=== PATIENT | female | born 1995 | race Caucasian/White ===

== ENCOUNTER 2021-06-04 04:24 | Emergency (ER) | payer OTHER, SELFPAY ==
[2021-06-04 04:29] VITALS: BP 134/94; PULSE 72; RESP 16; TEMP 36.6; O2SAT 100
--- NOTE | 2021-06-04 04:40 | ED.DENTAL ---
HPI - Dental/Oral General Chief complaint: Dental/Oral Stated complaint: tooth pain Time Seen by Provider: 06/04/21 04:36 Source: patient History of Present Illness HPI Narrative: Patient presents with left lower dental pain and sore throat. Patient ports symptoms started this morning to get progressively worse so she came to the ER for evaluation. She reports it hurts to open her jaw. Pain is achy, constant, worse with moving her jaw. Reports the pain spreads across her face and jaw. Reports mild pain and swelling denies any nausea vomiting or diarrhea she denies any fever she denies any shortness of breath she denies any trauma to the area Teeth map: 1. pain Related Data Allergies Allergy/AdvReac Type Severity Reaction Status Date / Time ondansetron Allergy Mild Rash Verified 06/04/21 04:32 Review of Systems Review of Systems: CONSTITUTIONAL: Denies fever, chills, or sweats. EYES: Denies visual changes, redness, or discharge. ENT: Denies rhinorrhea, congestion, or otalgia. CARDIOVASCULAR: Denies chest pain, palpitations, or edema. RESPIRATORY: Denies cough or dyspnea. GASTROINTESTINAL: Denies abdominal pain, nausea, vomiting, or diarrhea. GENITOURINARY: Denies dysuria or hematuria. SKIN: Denies rash or itching. MUSCULOSKELETAL: Denies back pain, joint pain, or myalgia. NEUROLOGIC: Denies headache, numbness, dizziness, or weakness. PSYCHIATRIC: Denies anxiety or depression. All systems reviewed & are unremarkable except as noted in HPI and below PMFSH Past Medical History Medical History (Updated 06/04/21 @ 04:45 by Blaise Portillo MD) Patient denies significant medical history Social History Social History (Updated 06/04/21 @ 04:42 by Blaise Portillo MD) Substance use: never Exam Narrative: GENERAL: Well-appearing, well-nourished, and in no acute distress. HEAD: Normocephalic, atraumatic. EYES: PERRLA and EOMI. ENT: Nares clear, no rhinorrhea or epistaxis. Mucous membranes moist. Minimal erythema in the posterior pharynx no uvular deviation fractured tooth 17 with surrounding erythema and edema no submandibular pain NECK: Supple. No masses. No JVD EXTREMITIES: Normal range of motion. No edema. SKIN: Warm, dry, no rash. NEURO: No focal deficits. Alert and oriented x3. PSYCH: Normal mood and affect. Course Vital Signs Vital signs: Vital Signs Temperature 36.6 C 06/04/21 04:29 Pulse Rate 72 06/04/21 04:29 Respiratory Rate 16 06/04/21 04:29 Blood Pressure 134/94 H 06/04/21 04:29 Pulse Oximetry 100 06/04/21 04:29 Temperature 36.6 C 06/04/21 04:29 Pulse Rate 80 06/04/21 05:01 Respiratory Rate 16 06/04/21 05:01 Blood Pressure 130/90 06/04/21 05:01 Pulse Oximetry 98 06/04/21 05:01 MDM - Dental/Oral MDM Narrative Medical decision making narrative: H&P as above, vss, pt looks clinically well, exam dental fracture with surrounding edema and erythema, additional labs/img considered, symptomatic relief available as needed, on reevaluation pt continues to looks clinically well. Suspect dental abscess, dns airway compromise, severe sepsis. plan to tx/monitor as op w/ dental f/u findings/plan discussed with pt, pt agree/comfortable with plan, return precautions given. Education given regarding the importance of dentist for further evaluation Discharge Plan Discharge Clinical Impression: Abscess, dental Patient Disposition: Home, Self-Care Condition: Improved Instructions: Antibiotic Form, Dental Abscess (ED) Additional Instructions: Please return if your symptoms worsen or fail to improve. If you develop a fever, can not eat/drink anything or if you have any other concerns. Please follow-up with a dentist. Prescriptions: New oxycodone-acetaminophen 5-325 mg tablet 1 tablet PO Q4H PRN (Reason: pain) Qty: 10 RF: 0 amoxicillin-pot clavulanate 875-125 mg tablet 1 tablet PO Q12H 7 Days Qty: 14 RF: 0 Follow-up/Referrals: PHYSICIAN NOT ON STAFF,NON
[2021-06-04] MEDS: KETOROLAC 30 MG/ML VIAL (*BKC) IM (04:55)
[2021-06-04 05:01] VITALS: BP 130/90; PULSE 80; RESP 16; O2SAT 98
== END 2021-06-04 05:03 | disposition home or self-care (01) ==
LOC: ANHED 04:55
PROVIDERS: Emergency Provider Emergency Medicine; PCP Internal Medicine Gastroenterology
DX: K04.7 Periapical abscess without sinus (principal)
CPT/HCPCS: 96372; 99283; J1885

== ENCOUNTER 2022-06-24 09:39 | Emergency (ER) | payer SELFPAY ==
--- NOTE | 2022-06-24 09:40 | ECG_ITS ---
Measurements Intervals [place] Rate: 79 P: 59 MA: 131 QRS: 89 QRSD: 80 T: 53 QT: 355 QTc: 408 Interpretive Statements SINUS RHYTHM BASELINE ARTIFACT- I, III, AVR, AVL, AVF NORMAL ECG NO PREVIOUS ECG AVAILABLE FOR COMPARISON Electronically Signed On 06-24-2022 10:17:42 CYTOTECHNOLOGIST SUPERVISOR by Jeremy Gaspar D.O.
--- NOTE | 2022-06-24 10:52 | PC.NURSE ---
left at 1049, did not want to wait. Advised of risks including . Voiced acknowledgement
== END 2022-06-24 10:52 | disposition left against medical advice (07) ==
PROVIDERS: Emergency Provider Emergency Medicine
DX: Z53.21 Procedure and treatment not carried out due to patient leaving prior to being seen by health care provider (principal)
CPT/HCPCS: 93005; 99199

== ENCOUNTER 2022-07-07 08:05 | Emergency (ER) | payer MEDICAID, SELFPAY ==
[2022-07-07 08:09] VITALS: BP 123/74; PULSE 77; RESP 17; TEMP 37.2; O2SAT 100
[2022-07-07 08:15] VITALS: PULSE 77
[2022-07-07 09:11] LABS: Basophils Absolute Auto 0.1 K/mm3 (0.0-0.1); Basophils Percent Auto 0.7 % (0.2-1.2); Eosinophils Absolute Auto 0.1 K/mm3 (0-0.3); Eosinophils Percent Auto 1.6 % (0-4.4); Hematocrit 40.6 % (37.0-47.0); Hemoglobin 13.2 g/dL (12.0-15.0); Immature Granulocyte Absolute 0.02 K/mm3 (0.00-0.031); Immature Granulocyte Percent A 0.3 % (0-0.5); Lymphocytes Absolute Auto 1.92 K/mm3 (0.9-3.2); Lymphocytes Percent Auto 25.7 % (18.3-44.2); Mean Corpuscular HGB Conc 32.5 g/dl (32-36); Mean Corpuscular Hemoglobin 33.8 pg (26-34); Mean Corpuscular Volume 103.8 fl (80-100); Mean Platelet Volume 11.7 fl (7.4-10.4); Monocytes Absolute Auto 0.6 K/mm3 (0.1-0.6); Monocytes Percent Auto 7.6 % (2.6-8.5); Neutrophils Absolute Auto 4.8 K/mm3 (1.3-6.7); Neutrophils Percent Auto 64.1 % (45.5-73.1); Platelet Count Result 312 k/mm3 (150-375); Red Blood Count 3.91 M/mm3 (4.2-5.4); Red Cell Distribution Width 13.2 % (11.5-14.5); White Blood Count 7.5 K/mm3 (4.5-10.0)
--- NOTE | 2022-07-07 09:17 | ED.GENADULT ---
HPI - General Adult General Chief complaint: Unspecified Stated complaint: weak after donating plasma 1 wk ago Time Seen by Provider: 07/07/22 08:45 History of Present Illness HPI narrative: Pt presents with lightheaded feeling since donating plasma last week. Pt says she passed out during the procedure and the machine did not put blood back because it wasn't working. Pt denies CP. Pt feels SOB on exertion sometimes. Related Data Allergies Allergy/AdvReac Type Severity Reaction Status Date / Time ondansetron Allergy Mild Rash Verified 07/07/22 08:15 Review of Systems Review of Systems: All systems reviewed & are unremarkable except as noted in HPI and below PMFSH Past Medical History Medical History (Updated 07/07/22 @ 10:09 by Tayo Mcgregor III, DO) Patient denies significant medical history Social History Social History (Updated 06/04/21 @ 04:42 by Blaise Portillo MD) Substance use: never Exam Const: General: cooperative, healthy appearing and no acute distress Nutritional Appearance: average body habitus Orientation/consciousness: patient oriented x3 Limitations: no limitations HENMT: Head: normal to inspection Mouth: Yes Normal oral and palatal mucosa present Throat: posterior oropharynx normal Chest: Chest palpation & inspection: normal inspection of the chest Resp: Effort & Inspection: normal respiratory effort and able to speak in complete sentences Auscultation: clear to auscultation bilaterally Cardio: Rate: regular rate Rhythm: regular rhythm GI: GI Palp: No abdominal tenderness Auscultation: normal bowel sounds Skin: General skin exam: normal color and no rashes or lesions noted Neuro: General: patient oriented x3 and no focal motor deficits Extrem: General: normal to inspection, full ROM, capillary refill normal and no clubbing, cyanosis or edema Psych: Appearance: grossly normal and well kempt Mental Status: mental status grossly normal Speech and movement: Normal speech and movement present Affect: normal affect Attitude: cooperative Thought process: Normal thought process present Thought content: Yes Normal thought content present Insight: Good insight present (Psych) Judgement: Good judgement present (Psych) Course Vital Signs Vital signs: Vital Signs Temperature 99.0 F 07/07/22 08:09 Pulse Rate 77 07/07/22 08:09 Respiratory Rate 17 07/07/22 08:09 Blood Pressure 123/74 07/07/22 08:09 Pulse Oximetry 100 07/07/22 08:09 Oxygen Delivery Room Air 07/07/22 08:09 Temperature 99.0 F 07/07/22 08:09 Pulse Rate 78 07/07/22 10:17 Respiratory Rate 18 07/07/22 10:17 Blood Pressure 121/72 07/07/22 10:17 Pulse Oximetry 100 07/07/22 10:17 Oxygen Delivery Room Air 07/07/22 08:09 Medical Decision Making MDM Narrative Medical decision making narrative: pt says she has been lighteaded since donating plasma. can check cbc to make sure not anemic and cmp to check electrolytes and kidney function. labs normal likely and anxiety component. Home fluids and rest Differential Diagnosis Differential Diagnosis: anemia v electrolyte imbalance, dehydration, anxiety Medical Records Medical records reviewed: Yes I reviewed the external patient's medical records. Vital Signs Vital Signs: Vital Signs Temperature 99.0 F 07/07/22 08:09 Pulse Rate 77 07/07/22 08:09 Respiratory Rate 17 07/07/22 08:09 Blood Pressure 123/74 07/07/22 08:09 Pulse Oximetry 100 07/07/22 08:09 Oxygen Delivery Room Air 07/07/22 08:09 Temperature 99.0 F 07/07/22 08:09 Pulse Rate 78 07/07/22 10:17 Respiratory Rate 18 07/07/22 10:17 Blood Pressure 121/72 07/07/22 10:17 Pulse Oximetry 100 07/07/22 10:17 Oxygen Delivery Room Air 07/07/22 08:09 Lab Data Lab results reviewed: Yes I reviewed the patient's lab results. 07/07/22 08:58 07/07/22 08:58 Labs: Lab Results 07/07/22 07/07/22 Range/Units
[2022-07-07 09:25] LABS: Alanine Aminotransferase 40 U/L (6-35); Albumin Level 4.4 g/dL (3.5-5.1); Alkaline Phosphatase 46 U/L (38-126); Anion Gap 5 mmol/L (8-16); Aspartate Amino Transferase 29 U/L (14-36); Bilirubin,Total 0.4 mg/dL (0.2-1.3); Blood Urea Nitrogen 10 mg/dL (7-17); Carbon Dioxide 29 mmol/L (22-30); Chloride 101 mmol/L (98-107); Estimated CRCL calculation 103 ml/min; Estimated Glomerular Filt Rate > 60; Glucose 96 mg/dL (65-110); Potassium 3.6 mmol/L (3.4-5.0); Sodium 135 mmol/L (137-145)
[2022-07-07 10:17] VITALS: BP 121/72; PULSE 78; RESP 18; O2SAT 100
== END 2022-07-07 10:19 | disposition home or self-care (01) ==
PROVIDERS: Emergency Provider Emergency Medicine
DX: R42 Dizziness and giddiness (principal)
CPT/HCPCS: 36415; 80053; 81025; 85025; 99283

== ENCOUNTER 2022-07-31 05:48 | Emergency (ER) | payer MEDICAID, SELFPAY ==
--- NOTE | ~2022-07-31 | US_ITS ---
EXAMINATION: US OB transvaginal DATE: 07/31/2022 07:58 INDICATION: Right pelvic pain, first trimester TECHNIQUE: Real-time pelvic transabdominal and transvaginal ultrasound was performed. COMPARISON: None. FINDINGS: The uterus measures 9.4 x 4.9 cm. There is an intrauterine gestational sac. There is a 1.3 x 0.8 x 0.4 cm hypoechoic area adjacent to the gestational sac. A yolk sac is identified. The pole is not yet visualized. The mean sac diameter measures 8 mm, which correlates with an estimated g estational age of 5 weeks and 4 day(s) (+/-) 4 day(s). The right ovary measures 2.9 x 1.9 x 1.8 cm. The left ovary measures 3.0 x 1.7 x 1.7 cm. There is nor mal vascular flow in the ovaries. There is no free fluid in the pelvis. IMPRESSION: 1. Intrauterine gestational sac with an estimated gestational age of 5 weeks and 4 day(s) (+/-) 4 day (s) and an estimated delivery date of 03/29/2023 based on mean sac diameter. 2. Small subchorionic hematoma. Reviewed, dictated and finalized at location D. SOLUTIONS CONSULTANT IMPRESSION: 1. Intrauterine gestational sac with an estimated gestational age of 5 weeks an d 4 day(s) (+/-) 4 day(s) and an estimated delivery date of 03/29/2023 based on mean sac diameter. 2. Small subchorionic hematoma.
[2022-07-31 05:53] VITALS: BP 115/58; PULSE 82; RESP 16; TEMP 36.4; O2SAT 100
--- NOTE | 2022-07-31 06:27 | ED.PREGNANCY ---
HPI - General Chief complaint: Abdominal Pain <Akash Thomas MD - Last Filed: 07/31/22 07:00> Stated complaint: abd pain <Akash Thomas MD - Last Filed: 07/31/22 07:00> Time Seen by Provider: 07/31/22 05:58 <Akash Thomas MD - Last Filed: 07/31/22 07:00> History of Present Illness HPI Narrative: This is a 26F , O negative, LMP early June, who presents to the ED complaining of intermittent right side pelvic pain for the past 3 days. The pain is sharp, 5/10, lasts a few minutes at a time and associated with intermittent nausea. She has noticed cramping inbetween these episodes and had one episode of spotting 2 days ago. She denies fevers, nausea or vomiting. <Akash Thomas MD - Last Filed: 07/31/22 07:00> Related Data Allergies/Adverse reactions: Allergies Allergy/AdvReac Type Severity Reaction Status Date / Time ondansetron Allergy Mild Rash Verified 07/07/22 08:15 <Akash Thomas MD - Last Filed: 07/31/22 07:00> Review of Systems Review of Systems: CONSTITUTIONAL: Denies fever, chills, or sweats. CARDIOVASCULAR: Denies chest pain, palpitations, or edema. RESPIRATORY: Denies cough or dyspnea. GASTROINTESTINAL: Right pelvic pain and cramping, Denies nausea, vomiting, or diarrhea. GENITOURINARY: Spotting once, Denies dysuria or hematuria. SKIN: Denies rash or itching. MUSCULOSKELETAL: Denies back pain, joint pain, or myalgia. NEUROLOGIC: Denies headache, numbness, dizziness, or weakness. PSYCHIATRIC: Denies anxiety or depression. <Akash Thomas MD - Last Filed: 07/31/22 07:00> PMFSH Past Medical History Medical History: Medical History Patient denies significant medical history <Akash Thomas MD - Last Filed: 07/31/22 07:00> Social History Social History: Social History (Updated 07/31/22 @ 06:31 by Akash Thomas MD) Smoking status: Never smoker Alcohol intake: current Drinks per week: 1 Substance use: never <Akash Thomas MD - Last Filed: 07/31/22 07:00> Exam Narrative: GENERAL: Well-developed, well-nourished, and in no acute distress. Appears anxious HEAD: Normocephalic, atraumatic. EYES: PERRLA and EOMI. CHEST: Clear to auscultation. No respiratory distress. No wheezes rales or rhonchi HEART: Regular rate and rhythm. No murmur heard. Normal peripheral pulses. ABDOMEN: Soft, mild tenderness to palpation in the RLQ, nondistended, normal active bowel sounds. No CVA tenderness to palpation (chaperoned by female RN Vicenta): Normal external genitalia, no noted cervical discharge, bleeding or mass. Cervical motion tenderness, right adnexal fullness EXTREMITIES: Normal range of motion. No edema. SKIN: Warm, dry, no rash. NEURO: No focal deficits. Alert and oriented x3. PSYCH: Normal mood and affect. <Akash Thomas MD - Last Filed: 07/31/22 07:00> Course Course Emergency Course: 06:20 - Bedside US appears to show an intrauterine . There may be free intraabdominal fluid. Pelvic exam concerning for cervical motion tenderness. 07:00 - Patient signed out to oncoming ED physician, Dr. Zhong pending US. <Akash Thomas MD - Last Filed: 07/31/22 07:00> Vital Signs Vital signs: Vital Signs Temperature 36.4 C L 07/31/22 05:53 Pulse Rate 82 07/31/22 05:53 Respiratory Rate 16 07/31/22 05:53 Blood Pressure 115/58 L 07/31/22 05:53 Pulse Oximetry 100 07/31/22 05:53 Oxygen Delivery Room Air 07/31/22 05:53 Temperature 36.4 C L 07/31/22 05:53 Pulse Rate 82 07/31/22 05:53 Respiratory Rate 16 07/31/22 05:53 Blood Pressure 115/58 L 07/31/22 05:53 Pulse Oximetry 100 07/31/22 05:53 Oxygen Delivery Room Air 07/31/22 05:53 <Akash Thomas MD - Last Filed: 07/31/22 07:00> Vital Signs Temperature 36.4 C L 07/31/22 05:53 Pulse Rate 82 07/31/22 05:53 Respiratory Rat
--- NOTE | 2022-07-31 10:30 | PC.NURSE ---
[facility] ERP DR SEAMAN NEED TO COLLECT UA
== END 2022-07-31 10:40 | disposition home or self-care (01) ==
PROVIDERS: Preventive Medicine Aerospace Medicine; Emergency Provider Emergency Medicine
DX: O26.891 Other specified pregnancy related conditions, first trimester (principal); R10.2 Pelvic and perineal pain; Z3A.01 Less than 8 weeks gestation of pregnancy
CPT/HCPCS: 36415; 76817; 84702; 87491; 87591; 99284

== ENCOUNTER 2023-01-05 00:16 | Emergency (ER) | payer MEDICAID, SELFPAY ==
[2023-01-05 00:20] VITALS: BP 126/73; PULSE 98; RESP 18; TEMP 36.2; O2SAT 98
[2023-01-05 00:38] VITALS: PULSE 89; RESP 15; TEMP 36.4; O2SAT 98
--- NOTE | 2023-01-05 00:55 | ED.GENADULT ---
HPI - General Adult General Chief complaint: Unspecified Stated complaint: throat Time Seen by Provider: 01/05/23 00:40 Source: patient Mode of arrival: ambulatory Limitations: no limitations History of Present Illness HPI narrative: This is a 27 year old , 7 months , that presents to the ER for decreased PO intake. Reports she has a salivary gland infection. She was seen at another ER and started on Amoxicillin for this. She has been taking this with little relief. She also reports she saw her OB and was told to suck on sour candies. Reports she is unable to eat anything due to pain. She has been taking Tylenol with little relief. Denies fever or vomiting. Related Data Allergies Allergy/AdvReac Type Severity Reaction Status Date / Time ondansetron Allergy Mild Rash Verified 07/07/22 08:15 Review of Systems Review of Systems: CONSTITUTIONAL: Denies fever ENT: Reports dysphagia All systems reviewed & are unremarkable except as noted in HPI and below PMFSH Past Medical History Medical History (Updated 01/05/23 @ 02:50 by Monika Mann PA-C) History of bipolar disorder Social History Social History (Updated 01/05/23 @ 01:03 by Monika Mann PA-C) Smoking status: Current every day smoker Substance use: never Exam Narrative: GENERAL: Well-appearing, well-nourished, and in no acute distress. HEAD: Normocephalic, atraumatic. EYES: EOMI. ENT: Nares clear, no rhinorrhea or epistaxis. Mucous membranes moist. Oropharynx without tonsillar hypertrophy exudate or other lesions. No trismus NECK: Supple. No adenopathy. Mild swelling at the right submandibular gland. No erythema or induration. No obvious salivary gland stone is noted CHEST: Clear to auscultation. No respiratory distress. No wheezes rales or rhonchi HEART: Regular rate and rhythm. No murmur heard. Normal peripheral pulses. EXTREMITIES: Normal range of motion. No edema. SKIN: Warm, dry, no rash. NEURO: No focal deficits. Alert and oriented x3. PSYCH: Normal mood and affect Course Course Emergency Course: Patient updated on work-up and agrees with plan of care Consultations Consultation #1: Spoke with Dr. Thao about patient and workup. Recommends dose of steroid and changing antibiotic from amoxicillin to Augmentin Date: 01/05/23 Vital Signs Vital signs: Vital Signs Temperature 97.2 F L 01/05/23 00:20 Pulse Rate 98 01/05/23 00:20 Respiratory Rate 18 01/05/23 00:20 Blood Pressure 126/73 01/05/23 00:20 Pulse Oximetry 98 01/05/23 00:20 Oxygen Delivery Room Air 01/05/23 00:20 Temperature 97.5 F L 01/05/23 00:38 Pulse Rate 89 01/05/23 00:38 Respiratory Rate 15 01/05/23 00:38 Blood Pressure 126/73 01/05/23 00:20 Pulse Oximetry 98 01/05/23 00:38 Oxygen Delivery Room Air 01/05/23 00:20 Procedures Other Procedure Procedure 1: Other Procedure: heart tones noted at 180 Medical Decision Making MDM Narrative Medical decision making narrative: Patient presents to the emergency department for sialadenitis. She is afebrile and nontoxic-appearing. No overt erythema or edema noted at the neck. No trismus. Mild swelling noted about the right submandibular gland. There is no obvious stone on exam. CBC with leukocytosis to 15.7, could in part be due to her current . Inflammatory markers are mildly elevated. Patient reports good movement, normal heart tones noted. Spoke with Dr. Thao about patient and workup. Recommends dose of steroid and changing antibiotic from Amoxicillin to Augmentin. Patient updated on work-up and agrees with plan of care. She was requesting some viscous lidocaine. I did tell her to use this sparingly Vital Signs Vital Signs: Vital Signs Temperature 97.2 F L 01/05/23 00:20 Pulse Rate 98 01/05/23 00:20 Respiratory Rate 18 01/05/23 00:20 Blood Pressure 126/73 01/05/23 00:20 Pulse Oximetry 98 01/05/23 00:20 Oxy
[2023-01-05] MEDS: SODIUM CHLORIDE 0.9% IV 1,000 ML 999 ML IV CONT (01:06)
[2023-01-05 01:22] LABS: Potassium 3.6 mmol/L (3.4-5.0); Sodium 135 mmol/L (137-145)
[2023-01-05 01:23] LABS: Alanine Aminotransferase 23 U/L (6-35); Albumin Level 3.9 g/dL (3.5-5.1); Alkaline Phosphatase 65 U/L (38-126); Anion Gap 6 mmol/L (8-16); Aspartate Amino Transferase 26 U/L (14-36); Bilirubin,Total 0.2 mg/dL (0.2-1.3); Blood Urea Nitrogen 7 mg/dL (7-17); CRP 1.3 mg/dL (<1.0); Calcium 8.8 mg/dL (8.4-10.2); Carbon Dioxide 24 mmol/L (22-30); Chloride 105 mmol/L (98-107); Estimated CRCL calculation 146 ml/min; Estimated Glomerular Filt Rate > 60; Glucose 84 mg/dL (65-110)
[2023-01-05 01:53] LABS: Basophils Absolute Auto 0.1 K/mm3 (0.0-0.1); Basophils Percent Auto 0.4 % (0.2-1.2); Eosinophils Absolute Auto 0.2 K/mm3 (0-0.3); Eosinophils Percent Auto 1.1 % (0-4.4); Hemoglobin 11.8 g/dL (12.0-15.0); Immature Granulocyte Absolute 0.14 K/mm3 (0.00-0.031); Immature Granulocyte Percent A 0.9 % (0-0.5); Lymphocytes Absolute Auto 2.97 K/mm3 (0.9-3.2); Lymphocytes Percent Auto 18.9 % (18.3-44.2); Mean Corpuscular HGB Conc 33.7 g/dl (32-36); Mean Corpuscular Hemoglobin 35.4 pg (26-34); Mean Corpuscular Volume 105.1 fl (80-100); Mean Platelet Volume 12.3 fl (7.4-10.4); Monocytes Absolute Auto 1.1 K/mm3 (0.1-0.6); Monocytes Percent Auto 7.1 % (2.6-8.5); Neutrophils Absolute Auto 11.2 K/mm3 (1.3-6.7); Neutrophils Percent Auto 71.6 % (45.5-73.1); Platelet Count Result 281 k/mm3 (150-375); Red Blood Count 3.33 M/mm3 (4.2-5.4); Red Cell Distribution Width 13.5 % (11.5-14.5); White Blood Count 15.7 K/mm3 (4.5-10.0)
[2023-01-05 01:57] LABS: Erythrocyte Sedimentation Rate 48 mm/hr (0-20)
[2023-01-05 02:58] VITALS: BP 119/72; PULSE 83; RESP 15; TEMP 36.6; O2SAT 99
== END 2023-01-05 02:59 | disposition home or self-care (01) ==
PROVIDERS: Emergency Provider Physician Assistant
DX: K11.20 Sialoadenitis, unspecified (principal); O99.619 Diseases of the digestive system complicating pregnancy, unspecified trimester
CPT/HCPCS: 36415; 80053; 85025; 85652; 86140; 96361; 96374; 99284; J1100; J7030

== ENCOUNTER 2023-02-05 18:43 | Outpatient (RCR) | payer MEDICAID, SELFPAY ==
[2023-02-05 19:55] VITALS: BP 117/62; PULSE 89
== END 2023-04-01 11:50 | disposition home or self-care (01) ==
LOC: ANHOBOP 18:43
PROVIDERS: Visit Provider Obstetrics & Gynecology Gynecology
DX: O36.8130 Decreased fetal movements, third trimester, not applicable or unspecified (principal); Z3A.32 32 weeks gestation of pregnancy
CPT/HCPCS: 59025

== ENCOUNTER 2023-02-18 09:00 | Observation (INO) | payer MEDICAID, SELFPAY ==
[2023-02-18 09:21] VITALS: BP 113/63; PULSE 92
[2023-02-18 09:30] VITALS: BP 111/62; PULSE 84
[2023-02-18 09:47] LABS: Appearance Urine Turbid (Clear); Bacteria Urine None Seen /hpf; Bilirubin Urine Negative (Negative); Blood Urine Negative (Negative); Color Urine Yellow (Yellow); Glucose Urine UA Negative (Negative); Ketones Urine Negative (Negative); Leukocyte Esterase Ur Negative LEU/UL (Negative); Nitrate Urine Negative (Negative); Non Pathogenic Casts 0-2; Protein Urine Negative (Negative); RBC Urine 0-2 /hpf (0-2); Specific Grav Ur 1.013 (1.001-1.035); Squamous Epithelial Cell Urine Occasional /hpf (Few); Urobilinogen Urine 0.2 mg/dL (<2.0); WBC Urine 0-5 /hpf
[2023-02-18 09:49] VITALS: TEMP 36.9; BMI 32.3
[2023-02-18 09:52] LABS: Add Urine Microscopic? YES
[2023-02-18 10:00] VITALS: BP 102/63; PULSE 83
[2023-02-18 10:05] VITALS: BP 102/63; PULSE 83; TEMP 36.9
[2023-02-18 11:00] VITALS: BP 107/59; PULSE 77
--- NOTE | 2023-02-24 07:30 | PM.OBTRLD ---
OB - Triage/Final Diagnosis Visit Information Reason for evaluation: other (nausea, vomiting, cramping) Comments/Additional reasons for admission: I have assessed the risk for this patient, Kellie Garrido, and determined that she would benefit from observation care. Evaluation Laboratory results: Laboratory Tests 02/18/23 09:36 Urine Color Yellow Urine Appearance Turbid H Urine pH 8.0 Ur Specific [place] 1.013 Urine Protein Negative Urine Glucose (UA) Negative Urine Ketones Negative Ur Blood (Man) Negative Urine Nitrate Negative Urine Bilirubin Negative Urine Urobilinogen 0.2 Leukocyte Esterase Rfl Negative Urine RBC 0-2 Urine WBC 0-5 Ur Squamous Epith Cells Occasional Urine Bacteria None seen Urine Casts 0-2
== END 2023-02-18 11:12 | disposition home or self-care (01) ==
LOC: ANHOBPP 10:44 → ANHLDR 12:45
PROVIDERS: Admitting Provider Obstetrics & Gynecology Gynecology; Visit Provider Obstetrics & Gynecology Gynecology
DX: O26.893 Other specified pregnancy related conditions, third trimester (principal); R10.9 Unspecified abdominal pain; O21.2 Late vomiting of pregnancy; Z3A.34 34 weeks gestation of pregnancy
CPT/HCPCS: 81001; G0378; G0379

== ENCOUNTER 2023-02-25 02:06 | Inpatient (IN) | payer MEDICAID, SELFPAY ==
[2023-02-25] VITALS (50 sets, daily range): BP systolic 98–122; BP diastolic 55–77; PULSE 65–142; RESP 16–28; TEMP 35.9–37.3; O2SAT 97–100
--- NOTE | 2023-02-25 02:42 | WPDHPUPDATE1 ---
History and Physical Update Update Date/Time: 02/25/23 02:42 History and Physical has been reviewed, including an updated exam of the patient. There are NO changes in the patient's condition. Risks, benefits, and alternatives have been discussed and questions answered. Patient agrees to proceed with procedure.
--- NOTE | 2023-02-25 02:43 | P.HP_ITS ---
H&P: HPI History of Present Illness Date/Time: 02/25/23 02:43 Chief Complaint: walk in patient complete on arrival breech Narrative: 27 yo A4 here at 36 3/7 wks with 2 days of labor. She was at [facility] 2 days ago and sent home. Now arrives complete with BBOW. Feet present. U/s verifies double footling breech. complicated by SGA and followed by u/s. Last 4 wks ago and was at 12% for EFW. Prenatals requested from [facility]. States on Valtex for lab showing HSV. 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 Will proceed with csection. [facility] Past Medical History Medical History (Updated 02/25/23 @ 02:48 by Kristin Hale MD) History of bipolar disorder (normal spontaneous vaginal delivery) x 2 at term Surgical History Surgical History (Updated 02/25/23 @ 02:46 by Kristin Hale MD) History of D&C for SAB Social History Social History (Updated 01/05/23 @ 01:03 by Monika Mann PA-C) Smoking status: Current every day smoker Substance use: never Meds Home Medications and Allergies Home Medications Medication Instructions Recorded Confirmed Type acyclovir 400 mg tablet 400 mg PO DAILY 02/18/23 02/18/23 History aripiprazole 10 mg tablet 10 mg PO DAILY 02/18/23 02/18/23 History cholecalciferol (vitamin D3) 1,250 50,000 unit PO WEEKLY 02/18/23 02/18/23 History mcg (50,000 unit) capsule metoclopramide HCl 10 mg tablet 10 mg PO DAILY 02/18/23 02/18/23 History (Reglan) vit no.95-ferrous 1 tablet PO DAILY 02/18/23 02/18/23 History fumarate 28 mg-folic acid 800 mcg tablet () Allergies Allergy/AdvReac Type Severity Reaction Status Date / Time ondansetron Allergy Mild Rash Verified 07/07/22 08:15 Exam Const: General: comfortable and no acute distress Nutritional Appearance: average body habitus Resp: Effort & Inspection: normal respiratory effort GI: Inspection: other (gravid) GI Palp: Yes Other GI palpation findings present (u/s breech) : Manual OB Exam: dilated 10 cm, effaced fully and station (BBOW) 0 Assessment and Plan Assessment and plan (1) 36 weeks gestation of : Code(s): Z3A.36 - 36 weeks gestation of Status: Acute (2) Breech presentation: Code(s): O32.1XX0 - Maternal care for breech presentation, not applicable or unspecified Status: Acute Assessment and Plan: Will proceed with csection now. (3) Active labor: Status: Acute
[2023-02-25] MEDS: ceFAZolin 2 GM/D5W 50 ML 2 GM/50 ML BAG IVPB (02:50)
[2023-02-25 02:51] LABS: Basophils Absolute Auto 0.1 K/mm3 (0.0-0.1); Basophils Percent Auto 0.4 % (0.2-1.2); Eosinophils Absolute Auto 0.2 K/mm3 (0-0.3); Eosinophils Percent Auto 1.2 % (0-4.4); Hematocrit 36.3 % (37.0-47.0); Hemoglobin 12.1 g/dL (12.0-15.0); Hemoglobin 12.2 g/dL (12.0-15.0); Immature Granulocyte Absolute 0.15 K/mm3 (0.00-0.031); Immature Granulocyte Absolute 0.18 K/mm3 (0.00-0.031); Immature Granulocyte Percent A 0.9 % (0-0.5); Immature Granulocyte Percent A 1.1 % (0-0.5); Lymphocytes Absolute Auto 3.02 K/mm3 (0.9-3.2); Lymphocytes Absolute Auto 3.21 K/mm3 (0.9-3.2); Lymphocytes Percent Auto 18.7 % (18.3-44.2); Mean Corpuscular HGB Conc 33.3 g/dl (32-36); Mean Corpuscular HGB Conc 33.9 g/dl (32-36); Mean Corpuscular Hemoglobin 35.5 pg (26-34); Mean Corpuscular Volume 104.7 fl (80-100); Mean Corpuscular Volume 106.5 fl (80-100); Mean Platelet Volume 11.7 fl (7.4-10.4); Mean Platelet Volume 11.8 fl (7.4-10.4); Monocytes Absolute Auto 1.3 K/mm3 (0.1-0.6); Monocytes Percent Auto 7.8 % (2.6-8.5); Monocytes Percent Auto 8.2 % (2.6-8.5); Neutrophils Absolute Auto 11.2 K/mm3 (1.3-6.7); Neutrophils Absolute Auto 11.4 K/mm3 (1.3-6.7); Neutrophils Percent Auto 69.7 % (45.5-73.1); Neutrophils Percent Auto 70.4 % (45.5-73.1); Platelet Count Result 242 k/mm3 (150-375); Platelet Count Result 245 k/mm3 (150-375); Red Blood Count 3.41 M/mm3 (4.2-5.4); Red Blood Count 3.44 M/mm3 (4.2-5.4); Red Cell Distribution Width 13.6 % (11.5-14.5); Red Cell Distribution Width 13.7 % (11.5-14.5); White Blood Count 16.1 K/mm3 (4.5-10.0); White Blood Count 16.2 K/mm3 (4.5-10.0)
[2023-02-25 03:09] LABS: Alanine Aminotransferase 30 U/L (6-35); Albumin Level 3.6 g/dL (3.5-5.1); Alkaline Phosphatase 88 U/L (38-126); Anion Gap 9 mmol/L (8-16); Aspartate Amino Transferase 30 U/L (14-36); Bilirubin,Total 0.2 mg/dL (0.2-1.3); Blood Urea Nitrogen 9 mg/dL (7-17); Calcium 8.4 mg/dL (8.4-10.2); Carbon Dioxide 21 mmol/L (22-30); Chloride 105 mmol/L (98-107); Estimated Glomerular Filt Rate > 60; Glucose 88 mg/dL (65-110); Potassium 3.6 mmol/L (3.4-5.0); Sodium 135 mmol/L (137-145)
[2023-02-25 03:13] LABS: Anisocytosis 1+ (NORMAL); Burr Cells 1+ (NORMAL); Platelet Estimate Adequate (Adequate); Schistocytes None Seen (NORMAL)
--- NOTE | 2023-02-25 03:14 | WPDANESEPPF ---
Anes - Initial Pre Proc Eval Procedure: Operation Date: 02/25/23 02:45 Proposed Procedures p Section - Kristin Hale MD Date/Time: 02/25/23 03:14 Surgeon: Kristin Hale MD Pre Op Diagnosis: Contractions Patient Data Age: 27 Gender: F Height: Weight: Allergies Allergy/AdvReac Type Severity Reaction Status Date / Time ondansetron Allergy Mild Rash Verified 07/07/22 08:15 Home Medications Medication Instructions Recorded Confirmed Type acyclovir 400 mg tablet 400 mg PO DAILY 02/18/23 02/18/23 History aripiprazole 10 mg tablet 10 mg PO DAILY 02/18/23 02/18/23 History cholecalciferol (vitamin D3) 1,250 50,000 unit PO WEEKLY 02/18/23 02/18/23 History mcg (50,000 unit) capsule metoclopramide HCl 10 mg tablet 10 mg PO DAILY 02/18/23 02/18/23 History (Reglan) vit no.95-ferrous 1 tablet PO DAILY 02/18/23 02/18/23 History fumarate 28 mg-folic acid 800 mcg tablet () Laboratory Tests 02/25/23 02/25/23 02/25/23 02:40 02:40 02:40 WBC 16.1 H K/mm3 16.2 H K/mm3 (4.5-10.0) (4.5-10.0) RBC 3.41 L M/mm3 3.44 L M/mm3 (4.2-5.4) (4.2-5.4) Hgb 12.1 g/dL (12.0-15.0) Hct MCV MCH MCHC RDW Plt Count MPV Immature Gran % (Auto) Neut % (Auto) Lymph % (Auto) [place] % (Auto) Eos % (Auto) Baso % (Auto) Lymph # (Auto) [place] # (Auto) Eos # (Auto) Baso # (Auto) Abs Immat Gran (auto) Absolute Neuts (auto) Absolute Nucleated RBC Nucleated RBC % Platelet Estimate Anisocytosis Sissy Cells Schistocytes Sodium Potassium Chloride Carbon Dioxide Anion Gap BUN Creatinine Estim Creat Clear Calc Estimated GFR Glucose Calcium Total Bilirubin AST ALT Alkaline Phosphatase Total Protein Albumin RPR HIV 1&2 Ab/P24 Ag 4thGn Rubella IgG Antibody 02/25/23 02/25/23 02/25/23 02:40 02:40 02:40 WBC RBC Hgb 12.2 g/dL (12.0-15.0) Hct 36.3 L % 36.0 L % (37.0-47.0) (37.0-47.0) MCV 106.5 H fl 104.7 H fl (80-100) (80-100) MCH 35.5 H pg (26-34) MCHC RDW Plt Count MPV Immature Gran % (Auto) Neut % (Auto) Lymph % (Auto) [place] % (Auto) Eos % (Auto) Baso % (Auto) Lymph # (Auto) [place] # (Auto) Eos # (Auto) Baso # (Auto) Abs Immat Gran (auto) Absolute Neuts (auto) Absolute Nucleated RBC Nucleated RBC % Platelet Estimate Anisocytosis Sissy Cells Schistocytes Sodium Potassium Chloride Carbon Dioxide Anion Gap BUN Creatinine Estim Creat Clear Calc Estimated GFR Glucose Calcium Total Bilirubin AST ALT Alkaline Phosphatase Total Protein Albumin RPR HIV 1&2 Ab/P24 Ag 4thGn Rubella IgG Antibody 02/25/23 02/25/23 02/25/23 02:40 02:40 02:40 WBC RBC Hgb Hct MCV MCH 35.5 H pg (26-34) MCHC 33.3 g/dl 33.9 g/dl (32-36) (32-36) RDW 13.6 % 13.7 % (11.5-
[2023-02-25] MEDS: AZITHROMYCIN 500 MG/NS 250 ML 500 MG/250 ML BAG 250 MG IVPB (03:20)
[2023-02-25] MEDS: KETOROLAC 30 MG/ML VIAL (*BKC) IV PUSH ×2 (03:20→11:11)
[2023-02-25] MEDS: diphenhydrAMINE HCl INJ 50 MG/ML VIAL 25 MG IV PUSH (03:25)
--- NOTE | 2023-02-25 03:25 | W.PM.PROC2 ---
Procedure Note - Detailed Date of Procedure 02/25/23 Pre-op Diagnosis Intrauterine at 36 and 3/7 active labor complete on arrival double footling breech presentation Post-op Diagnosis Same Procedure Performed primary low-transverse section Surgeon Kristin Hale MD Anesthesia General Findings female infant in the double footling breech presentation; Apgars and weight have not been determined at by golf course ranger and nursery nurse; normal-appearing tubes, ovaries, uterus Description of Procedure The patient is taken to the operating room and placed under anesthesia in the dorsal supine position with leftward tilt position. Once she was prepped and draped, she was placed under general anesthesia with ET tube. Skin incision is made with a scalpel and carried down the underlying layer of fascia which was nicked in the midline. Fascial incision was extended laterally using Wiggins scissors. Ochsner was used to tent the fascia which was then dissected off using sharp and blunt dissection. The rectus muscles are in the midline and the peritoneum was entered while tenting with a Peon. The incision was extended with blunt traction. The bladder blade is placed and the vesicouterine peritoneum tented and entered with Metzenbaum scissors. The incision was extended laterally. The bladder flap was created digitally. The bladder blade is replaced. The lower uterine segment was incised in a transverse fashion. The incision was extended laterally and membranes were ruptured with clear fluid noted. The legs and feet are in the vagina therefore the hips are grasped at the incision and the delivered from a juana breech presentation. The legs are delivered and the extended on the abdomen. The right arm was splinted and delivered. Then the left arm was splinted and delivered. The 's head is delivered while applying fundal pressure. The cord was clamped and cut the handed to the waiting nursery nurse and golf course ranger. Cord blood for gases and lab were taken. The cord had minimal traction applied and it avulsed. The placenta was there for removed manually. The uterus is cleared of all clots and debris and exteriorized. The uterine incision was closed using 0 Monocryl in a running locked fashion. Same suture was used to imbricate. One additional [id number] suture was required at the left angle. Good hemostasis was then noted. The cul-de-sac and gutters were irrigated. The uterus is returned to the abdomen. The incision again inspected and noted to be hemostatic. The fascia was closed using 0 Vicryl in a running fashion. Subcutaneous tissue was irrigated and made hemostatic using Bovie cautery. Skin incision was closed using 4-0 Vicryl in a subcuticular fashion. Dermaflex was placed over the incision. Sponge, needle, and instrument counts are correct per the OR staff. Patient received Ancef prior to skin incision. Estimated Blood Loss 835 Drains Yes ( Pineda catheter) Packing No Pathology Yes ( placenta) Complications No immediate complications Condition Stable Disposition Floor
--- NOTE | 2023-02-25 03:32 | PM.OBDSVD ---
DS: Admitting Diagnosis Discharge Date 03/01/23 Admitting Diagnosis intrauterine at 36 and 3/7 weeks active labor complete on arrival double footling breech presentation DS: Discharge Diagnosis Discharge Diagnosis (1) Breech presentation delivered: Code(s): O32.1XX0 - Maternal care for breech presentation, not applicable or unspecified Status: Acute (2) delivery delivered: Code(s): O82 - Encounter for delivery without indication Status: Acute OB - DS: Summary OB Procedures : NST, Ultrasound and Other ( small for gestational age followed by ultrasound) OB Procedures Intrapartum: low cervical, transverse OB Procedures: : None Peripartum Data Delivery Method: Section Procedures: Procedures Operation Date: 02/25/23 02:45 <No data on this case meets the specified criteria> complications: none Status at Discharge Functional status at discharge: independent ambulation Overall status at discharge: patient is progressing back to baseline Time Spent with Patient Time attestation: Total time spent providing and/or coordinating discharge services: DS: Data Data Completed and Pending Labs on day of discharge: Labs from last 24 hours 02/25/23 02/25/23 02/25/23 02:40 02:40 02:40 WBC RBC Hgb Hct MCV MCH MCHC RDW Plt Count MPV Immature Gran % (Auto) Neut % (Auto) Lymph % (Auto) [place] % (Auto) Eos % (Auto) Baso % (Auto) Lymph # (Auto) [place] # (Auto) Eos # (Auto) Baso # (Auto) Abs Immat Gran (auto) Absolute Neuts (auto) 11.4 H Absolute Nucleated RBC 0.0 0.0 Nucleated RBC % 0.0 0.0 Platelet Estimate Adequate Anisocytosis 1+ Sissy Cells 1+ Schistocytes None seen Sodium 135 L Potassium 3.6 Chloride 105 Carbon Dioxide 21 L Anion Gap 9 BUN 9 Creatinine 0.50 L Estim Creat Clear Calc Not Reportable Estimated GFR > 60 Glucose 88 Calcium 8.4 Total Bilirubin 0.2 AST 30 ALT 30 Alkaline Phosphatase 88 Total Protein 7.0 Albumin 3.6 RPR Pending HIV 1&2 Ab/P24 Ag 4thGn Pending Rubella IgG Antibody Pending Blood Type O Negative Antibody Screen Pending 02/25/23 02/25/23 02/25/23 02:40 02:40 02:40 WBC RBC Hgb Hct MCV MCH MCHC RDW Plt Count MPV Immature Gran % (Auto) Neut % (Auto) Lymph % (Auto) [place] % (Auto) Eos % (Auto) Baso % (Auto) Lymph # (Auto) [place] # (Auto) Eos # (Auto) 0.2 Baso # (Auto) 0.1 0.1 Abs Immat Gran (auto) 0.18 H 0.15 H Absolute Neuts (auto) 11.2 H Absolute Nucleated RBC Nucleated RBC % Platelet Estimate Anisocytosis Sissy Cells Schistocytes Sodium Potassium Chloride Carbon Dioxide Anion Gap BUN Creatinine Estim Creat Clear Calc Estimated GFR Glucose Calcium Total Bilirubin AST ALT Alkaline Phosphatase Total Protein Albumin RPR HIV 1&2 Ab/P24 Ag 4thGn Rubella IgG Antibody Blood Type Antibody Screen 02/25/23 02/25/23 02/25/23 02:40 02:40 02:40 WBC RBC Hgb Hct MCV MCH MCHC RDW Plt Count MPV Immature Gran % (Auto) Neut % (Auto) Lymph % (Auto) [place] % (Auto) Eos % (Auto) Baso % (Auto) 0.4 Lymph # (Auto) 3.02 3.21 H [place] # (Auto) 1.3 H 1.3 H Eos # (Auto) 0.2 Baso # (Auto) Abs Immat Gran (auto) Absolute Neuts (auto) Absolute Nucleated RBC Nucleated RBC % Platelet Estimate Anisocytosis Reed Cells Schistocytes Sodium Potassium Chloride Carbon Dioxide Anion Gap BUN Creatinine Estim Creat Clear Calc Estimated GFR Glucose Calcium Total Bilirubin AST ALT Alkaline Phosphatase Total Protein Albumin RPR HIV
[2023-02-25 03:41] LABS: HIV 1/2 Ab P24 Ag Result Negative (Negative)
[2023-02-25 03:42] LABS: Rubella IgG Antibody 30.9 IU/ML
[2023-02-25] MEDS: OXYTOCIN 30 UNITS/NS 500 ML 30 UNITS/500 ML BAG 125 UNITS IV CONT (04:00)
[2023-02-25] MEDS: fentaNYL CITRATE INJ (*CRX) 100 MCG/2 ML VIAL 25 MCG IV PUSH ×8 (04:01→04:24)
[2023-02-25] MEDS: FENTANYL 600MCG/NS30MLPCA(*CRX 600 MCG/30 ML PCA.VIAL IV CONT (05:56)
[2023-02-25] MEDS: DEXTROSE 5%/0.45% SOD CHL 1,000 ML 125 ML IV CONT (05:56)
--- NOTE | 2023-02-25 07:02 | LDADM ---
This patient, Kellie Garrido, was admitted to Labor/Delivery/Recovery 104 on 02/25/23 at 02:06. Plans for labor, pain management and were discussed with patient. Patient/family oriented to hospital policies and general routines including ID bracelet, bed and alarms, visiting hours, pain management, procedures, bathroom and other care routines, personal items, smoking policy, room service/diet and guest tray routines, security routines, and visiting hours. Patient/Family are encouraged to report perceived risks to care and to ask questions if they do not understand what they are told or what they should do. See OBIX for further documentation.
[2023-02-25 09:44] LABS: Rapid Plasma Reagin Non-Reactive (NonReactive)
[2023-02-25] MEDS: LIDOCAINE 5% PATCH 1 PATCH TRANSDERM (11:33)
--- NOTE | 2023-02-25 12:04 | PC.NURSE ---
[id number] Report received this morning was RN is initiating the plan and has discussed this with mother. Introductions were made with mother and is being held by a visitor. Consulted with patient to assess needs related to . Mother led the conversation with her?plans to feed?her infant and the?experience so far. Educated mother on protecting her milk supply with stimulating with hand expression, manual pumping or electric pumping. Mother doesn't want to use an electric pump at this time. Resources provided for inpatient services with name written on the white board. Mother voiced understanding of information and will call if there is a request for assistance. Reported to the primary RN.
[2023-02-25] MEDS: DOCUSATE SODIUM 100 MG CAPSULE PO (14:20)
[2023-02-25] MEDS: HYDROcodone/acetaminophen (*CRX) 5-325 MG TABLET 1 TAB PO ×2 (14:20→16:04)
[2023-02-25] MEDS: IBUPROFEN 600 MG TABLET PO ×2 (17:19→22:55)
[2023-02-25] MEDS: HYDROcodone/acetaminophen (*CRX) 10-325 MG TABLET 1 TAB PO ×2 (19:30→22:55)
[2023-02-25] MEDS: SIMETHICONE 80 MG TAB.CHEW PO (19:30)
[2023-02-25] MEDS: ARIPiprazole 10 MG TABLET PO (22:55)
[2023-02-26] MEDS: HYDROcodone/acetaminophen (*CRX) 10-325 MG TABLET 1 TAB PO (03:35)
[2023-02-26] MEDS: SIMETHICONE 80 MG TAB.CHEW PO ×2 (03:35→19:08)
[2023-02-26 05:11] LABS: Basophils Absolute Auto 0.1 K/mm3 (0.0-0.1); Basophils Percent Auto 0.4 % (0.2-1.2); Eosinophils Absolute Auto 0.2 K/mm3 (0-0.3); Eosinophils Percent Auto 1.3 % (0-4.4); Hematocrit 29.2 % (37.0-47.0); Hemoglobin 9.7 g/dL (12.0-15.0); Immature Granulocyte Absolute 0.15 K/mm3 (0.00-0.031); Immature Granulocyte Percent A 0.9 % (0-0.5); Lymphocytes Percent Auto 19.3 % (18.3-44.2); Mean Corpuscular HGB Conc 33.2 g/dl (32-36); Mean Corpuscular Hemoglobin 35.7 pg (26-34); Mean Corpuscular Volume 107.4 fl (80-100); Mean Platelet Volume 12.2 fl (7.4-10.4); Monocytes Absolute Auto 1.3 K/mm3 (0.1-0.6); Monocytes Percent Auto 7.6 % (2.6-8.5); Neutrophils Absolute Auto 11.7 K/mm3 (1.3-6.7); Neutrophils Percent Auto 70.5 % (45.5-73.1); Platelet Count Result 219 k/mm3 (150-375); Red Blood Count 2.72 M/mm3 (4.2-5.4); Red Cell Distribution Width 13.9 % (11.5-14.5); White Blood Count 16.5 K/mm3 (4.5-10.0)
[2023-02-26 07:50] VITALS: BP 100/66; PULSE 78; RESP 18; TEMP 36.3; O2SAT 99
[2023-02-26] MEDS: POLYSACCHARIDE IRON COMPLEX 150 MG CAPSULE PO ×2 (08:21→17:19)
[2023-02-26] MEDS: HYDROcodone/acetaminophen (*CRX) 5-325 MG TABLET 1 TAB PO ×3 (08:21→19:08)
[2023-02-26] MEDS: DOCUSATE SODIUM 100 MG CAPSULE PO ×2 (08:21→17:20)
[2023-02-26] MEDS: MULTIVIT/MIN/PREN/FOL AC/IRON TABLET 1 TAB PO (08:21)
[2023-02-26 08:24] VITALS: TEMP 36.5
[2023-02-26] MEDS: IBUPROFEN 600 MG TABLET PO ×2 (08:24→19:08)
--- NOTE | 2023-02-26 10:17 | P.PNOB_ITS ---
OB - PN: Subj Subjective Date/time seen: 02/26/23 0920 Interval history: POD1 from [facility] for breech presentation. PT reports care in [place], [place]. Reports she is a , Hx 4 SABs. Hx CHTN currently on no medications. Patient comments: no complaints and pain well controlled baby status: doing well [place] feeding status: breast and bottle feeding OB - PN: Obj Data Labs 02/26/23 03:48 02/25/23 02:40 Labs: Laboratory Results - last 24 hr 02/26/23 03:48 WBC 16.5 H RBC 2.72 L Hgb 9.7 L Hct 29.2 L MCV 107.4 H MCH 35.7 H MCHC 33.2 RDW 13.9 Plt Count 219 MPV 12.2 H Immature Gran % (Auto) 0.9 H Neut % (Auto) 70.5 Lymph % (Auto) 19.3 [place] % (Auto) 7.6 Eos % (Auto) 1.3 Baso % (Auto) 0.4 Lymph # (Auto) 3.20 [place] # (Auto) 1.3 H Eos # (Auto) 0.2 Baso # (Auto) 0.1 Abs Immat Gran (auto) 0.15 H Absolute Neuts (auto) 11.7 H Absolute Nucleated RBC 0.0 Nucleated RBC % 0.0 OB - PN A/P Plan day: 1 Plan: routine care Time Spent With Patient Time: Total time spent is greater than 50% in coordination of care (as documented) at patient's floor/unit and/or counseling patient: Review of Systems Review of Systems: All systems reviewed & are unremarkable except as noted in HPI and below Constitutional: Constitutional: Reports as per HPI ENT: Reports system reviewed and no additional complaints, except as documented Respiratory: Respiratory: Reports as per HPI Exam Const: General: cooperative, no acute distress and awake Orientation/consciousness: patient oriented x3 Limitations: no limitations Resp: Effort & Inspection: normal respiratory effort and able to speak in complete sentences Auscultation: clear to auscultation bilaterally Cardio: Rate: regular rate Peripheral pulses: Peripheral pulses 2+ throughout GI: Inspection: normal to inspection Auscultation: normal bowel sounds : General: Yes bladder normal to palpation Bimanual exam- vagina & uterus: bladder normal to palpation Other: Fundus firm Skin: General skin exam: normal color Other: Incision C/D/I Neuro: General: patient oriented x3 Cognition (Neuro): normal cognition Speech: normal speech Extrem: General: normal to inspection Psych: Appearance: grossly normal Mental Status: mental status grossly normal Speech and movement: Normal speech and movement present Affect: normal affect Attitude: cooperative Thought process: Normal thought proc ess present
--- NOTE | 2023-02-26 11:14 | PC.NURSE ---
0983 - 1000 Purposefully rounded to assess patient needs. Mother shared that she breastfed her other infants but they were term infants and not 35 weeks. She demonstrated her cradle positioning to attempt to latch her . Mother states she is attempting to breastfeed for 5 minutes on each breast about every 3 hours, pumping and supplementing with formula. RN offered to show her another position to work with and mother is eager to learn. We worked with her for 5 minutes practicing with infants wide open gape. would latch, take a few sucks, then stop. Mother was encouraged to see her infants attempts. We discussed consistently pumping, hand expressing, gentle breast massage before and during every 2-3 hours to encourage her milk production and protect her milk supply. We reviewed the risks and benefits of hand, manual and electric pumping. Reviewed good handwashing when or touching the breast/nipples to prevent infection. Resources used to facilitate learning were used with the visual handouts/QR codes/ tool/mom and baby guide. Mother voiced understanding of skin to skin, stimulating with massage touch, responsive feedings, hand expressed colostrum, talking to to encourage if it has been 2 -2.5 hours since the start of the last , to call if infant does not latch, or if there is discomfort with . Resources provided for inpatient/outpatient with feeding sheet, name written on the communication board and the mom/baby guide. Parents voiced understanding of information, demonstrated learning and will call if there is a request for assistance. Reported to the Primary RN.
[2023-02-26] MEDS: LIDOCAINE 5% PATCH 1 PATCH TRANSDERM (11:44)
--- NOTE | 2023-02-26 13:16 | WPDANLDPN2 ---
Anes-Prog Note L&D Date/Time: 02/26/23 13:16 Comfortable throughout: section Neuro status: Neuro function grossly intact. Cardiovascular status: normal Respiratory status: normal Airway patency: baseline Mental status: baseline Post-Op hydration status: normal Vital Signs: Last Vital Signs Temp 36.5 C 02/26/23 08:24 Pulse 78 02/26/23 07:50 Resp 18 02/26/23 07:50 BP 100/66 02/26/23 07:50 Pulse Ox 99 02/26/23 07:50 O2 Del Method Room Air 02/25/23 19:30 O2 Flow Rate 7 02/25/23 03:30 Pain score (VAS): 3/10 I/O: Intake & Output 02/25/23 02/26/23 02/26/23 23:59 07:59 15:59 Intake Total 300 1500 Output Total 1450 Balance 300 50 Post-procedural complaints: none Patient feedback: Patient satisfied with anesthetic care. Other findings: patient recieved General anesthesia.
[2023-02-26] MEDS: ARIPiprazole 10 MG TABLET PO (19:49)
[2023-02-26 20:00] VITALS: BP 110/65; PULSE 87; RESP 18; TEMP 37.1; O2SAT 100
[2023-02-27] MEDS: IBUPROFEN 600 MG TABLET PO ×3 (00:31→16:26)
[2023-02-27] MEDS: HYDROcodone/acetaminophen (*CRX) 10-325 MG TABLET 1 TAB PO ×3 (00:31→20:19)
--- NOTE | 2023-02-27 08:04 | P.PNOB_ITS ---
OB - PN: Subj Subjective Date/time seen: 02/27/23 0750 Interval history: POD2 from [facility] for breech presentation. PT reports care in [place], [place]. Reports she is a , Hx 4 SABs. Hx CHTN currently on no medications. She is doing well today. Ambulating in room without dizziness. Denies heavy vaginal bleeding or passing large clots. Pain improved from yesterday and managed with PO meds. Bonding with infant. Patient comments: pain well controlled [place] baby status: doing well [place] feeding status: breast and bottle feeding OB - PN: Obj Data Labs 02/26/23 03:48 02/25/23 02:40 OB - PN A/P Plan day: 2 Plan: routine care Time Spent With Patient Time: Total time spent is greater than 50% in coordination of care (as documented) at patient's floor/unit and/or counseling patient: Review of Systems Review of Systems: All systems reviewed & are unremarkable except as noted in HPI and below Constitutional: Constitutional: Reports as per HPI ENT: Reports system reviewed and no additional complaints, except as documented Respiratory: Respiratory: Reports as per HPI Exam Const: General: cooperative, no acute distress and awake Orientat ion/consciousness: patient oriented x3 Limitations: no limitations Resp: Effort & Inspection: normal respiratory effort and able to speak in complete sentences Auscultation: clear to auscultation bilaterally Cardio: Rate: regular rate Peripheral pulses: Peripheral pulses 2+ throughout GI: Inspection: normal to inspection Auscultation: normal bowel sounds : General: Yes bladder normal to palpation Bimanual exam- vagina & uterus: bladder normal to palpation Other: Fundus firm Skin: General skin exam: normal color Other: Incision C/D/I Neuro: General: patient oriented x3 Cognition (Neuro): normal cognition Speech: normal speech Extrem: General: normal to inspection Psych: Appearance: grossly normal Mental Status: mental status grossly normal Speech and movement: Normal speech and movement present Affect: normal affect Attitude: cooperative Thought process: Normal thought process present
[2023-02-27 08:20] VITALS: BP 112/70; PULSE 74; RESP 16; TEMP 36.7; O2SAT 99
[2023-02-27] MEDS: POLYSACCHARIDE IRON COMPLEX 150 MG CAPSULE PO ×2 (08:28→16:26)
[2023-02-27] MEDS: MULTIVIT/MIN/PREN/FOL AC/IRON TABLET 1 TAB PO (08:28)
[2023-02-27] MEDS: DOCUSATE SODIUM 100 MG CAPSULE PO ×2 (08:28→16:26)
--- NOTE | 2023-02-27 11:45 | PC.NURSE ---
1102 - Purposefully rounded and everyone in the room is sleeping.
--- NOTE | 2023-02-27 12:30 | PC.NURSE ---
Pt denies the need for the lidocaine patch for pain at this time
[2023-02-27] MEDS: HYDROcodone/acetaminophen (*CRX) 5-325 MG TABLET 1 TAB PO (16:26)
[2023-02-27 20:00] VITALS: BP 115/61; PULSE 87; RESP 20; TEMP 36.8; O2SAT 99
[2023-02-27] MEDS: ARIPiprazole 10 MG TABLET PO (20:19)
[2023-02-28] MEDS: HYDROcodone/acetaminophen (*CRX) 5-325 MG TABLET 1 TAB PO ×5 (05:40→22:37)
[2023-02-28] MEDS: IBUPROFEN 600 MG TABLET PO ×3 (05:41→22:38)
--- NOTE | 2023-02-28 07:48 | PM.OBPNVD ---
OB - PN: Subj Subjective Date/time seen: 02/28/23 07:48 Interval history: POD3 from [facility] for breech presentation. Patient is doing well this morning. She denies any pain or bleeding issues today. Patient is ambulating. She has no difficulties with bladder or bowel movement. She is tolerating p.o. Patient comments: no complaints and pain well controlled; no flatus present OB - PN: Obj Data Labs 02/26/23 03:48 02/25/23 02:40 OB - PN A/P Plan day: 1 Plan: routine care Comments: patient doing well this AM she denies any pain or bleeding issues Patient is requesting to stay another night Patient's needs to stay to gain weight Continue routine care Time Spent With Patient Time: Total time spent is greater than 50% in coordination of care (as documented) at patient's floor/unit and/or counseling patient: Time with patient: less than 15 minutes Review of Systems Constitutional: Constitutional: Reports no additional constitutional complaints Cardiovascular: Cardiovascular: Reports no additional cardiovascular complaints Respiratory: Respiratory: Reports no additional respiratory complaints Gastrointestinal: Gastrointestinal: Reports no additional gastrointestinal complaints Genitourinary: Genitourinary: Reports no additional female genitourinary complaints Exam Const: General: comfortable and no acute distress Resp: Effort & Inspection: normal respiratory effort Auscultation: clear to auscultation bilaterally Cardio: Rate: regular rate GI: GI Palp: Yes Soft to palpation and Yes Tenderness to palpation present (GI) (appropriately tender around incision ) Auscultation: normal bowel sounds Other: fundus firm and below umbilicus Incision C/D/I Urinary Catheter: Urinary Catheter: urine clear Psych: Appearance: grossly normal Mental Status: mental status grossly normal Affect: normal affect
[2023-02-28 08:30] VITALS: BP 122/78; PULSE 72; RESP 16; TEMP 36.9; O2SAT 100
[2023-02-28] MEDS: MULTIVIT/MIN/PREN/FOL AC/IRON TABLET 1 TAB PO (08:30)
[2023-02-28] MEDS: DOCUSATE SODIUM 100 MG CAPSULE PO ×2 (08:30→17:20)
[2023-02-28] MEDS: POLYSACCHARIDE IRON COMPLEX 150 MG CAPSULE PO ×2 (08:30→17:20)
[2023-02-28] MEDS: SIMETHICONE 80 MG TAB.CHEW PO (13:15)
[2023-02-28 20:00] VITALS: BP 126/74; PULSE 85; RESP 18; TEMP 36.6; O2SAT 100
[2023-02-28] MEDS: ARIPiprazole 10 MG TABLET PO (22:38)
[2023-03-01 07:00] VITALS: BP 124/79; PULSE 72; RESP 18; TEMP 36.9; O2SAT 99
[2023-03-01] MEDS: IBUPROFEN 600 MG TABLET PO (07:01)
[2023-03-01] MEDS: HYDROcodone/acetaminophen (*CRX) 5-325 MG TABLET 1 TAB PO (07:02)
[2023-03-01] MEDS: DOCUSATE SODIUM 100 MG CAPSULE PO (07:02)
[2023-03-01] MEDS: MULTIVIT/MIN/PREN/FOL AC/IRON TABLET 1 TAB PO (07:02)
[2023-03-01] MEDS: POLYSACCHARIDE IRON COMPLEX 150 MG CAPSULE PO (07:02)
--- NOTE | 2023-03-01 12:30 | PC.NURSE ---
pt discharged to a [facility], baby has to stay to feed and grow. Prescriptions sent to pharmacy, mother will be leaving soon with FOB to get medications.
[2023-03-03 08:18] VITALS: BP 106/64; PULSE 68; RESP 18; TEMP 37; O2SAT 100
== END 2023-03-01 12:30 | disposition home or self-care (01) | DRG 540 ==
LOC: ANHLDR 03:35 → ANHOB2 03-01 10:32 → ANHLDR 03-03 13:26 → ANHOB2 03-03 13:26
PROVIDERS: Admitting Provider Obstetrics & Gynecology Gynecology; Visit Provider Obstetrics & Gynecology Gynecology
PROC: 10D00Z1 Extraction of Products of Conception, Low, Open Approach (ICD-10-PCS; CPT 59514; principal; 2023-02-25 02:45)
DX: O60.14X0 Preterm labor third trimester with preterm delivery third trimester, not applicable or unspecified (principal); O32.8XX0 Maternal care for other malpresentation of fetus, not applicable or unspecified; Z37.0 Single live birth; Z3A.35 35 weeks gestation of pregnancy
CPT/HCPCS: 36415; 80053; 85025; 86592; 86703; 86762; 86850; 86880; 86900; 86901; 86902; A9270; G0432; J0330; J0456; J0690; J1200; J1885; J2250; J2590; J2704; J3010

== ENCOUNTER 2023-04-17 05:10 | Emergency (ER) | payer MEDICAID, SELFPAY ==
--- NOTE | ~2023-04-17 | XR_ITS ---
EXAMINATION: XR chest 1V portable DATE: 04/17/2023 07:10 INDICATION: Productive cough. TECHNIQUE: A single frontal view of the chest was obtained. COMPARISON: None. FINDINGS: There is no pneumonia, pleural effusion, or pneumothorax. The heart size is normal. IMPRESSION: 1. No acute cardiopulmonary disease. Reviewed, dictated and finalized at location E.
[2023-04-17 05:18] VITALS: BP 119/76; PULSE 89; RESP 18; TEMP 36.9; O2SAT 99
--- NOTE | 2023-04-17 06:59 | PC.NURSE ---
Report to [facility] Saenz
--- NOTE | 2023-04-17 07:18 | ED.URI ---
HPI - URI/Sore Throat General Chief Complaint: Upper Respiratory Infection Stated Complaint: upper resp infection Time Seen by Provider: 04/17/23 06:59 History of Present Illness HPI Narrative: Is a 27-year-old female, with no significant past medical history, presenting to the emergency department complaining of cough and chest soreness for the past week associated with sinus congestion. The patient states her daughter is currently admitted to the pediatric ICU for RSV pneumonia. She denies any other known sick contacts. She states her cough is productive of mucus without blood. She complains of some chest soreness associated with coughing. She has no other complaints at this time. Related Data Home Medications Medication Instructions Recorded Confirmed acyclovir 400 mg tablet 400 mg PO DAILY 02/18/23 02/18/23 aripiprazole 10 mg tablet 10 mg PO DAILY 02/18/23 02/18/23 cholecalciferol (vitamin D3) 1,250 50,000 unit PO WEEKLY 02/18/23 02/18/23 mcg (50,000 unit) capsule metoclopramide HCl 10 mg tablet 10 mg PO DAILY 02/18/23 02/18/23 (Reglan) vit no.95-ferrous 1 tablet PO DAILY 02/18/23 02/18/23 fumarate 28 mg-folic acid 800 mcg tablet () Allergies Allergy/AdvReac Type Severity Reaction Status Date / Time ondansetron Allergy Mild Rash Verified 07/07/22 08:15 Review of Systems Review of Systems: CONSTITUTIONAL: Denies fever, chills, or sweats. ENT: Rhinorrhea, congestion denies sore throat, or otalgia. CARDIOVASCULAR: Chest soreness associated with cough denies other chest pain, palpitations, or edema. RESPIRATORY: Cough productive of nonbloody mucus denies dyspnea. GASTROINTESTINAL: Denies abdominal pain, nausea, vomiting, or diarrhea. GENITOURINARY: Last menstrual period April 01, 2023 denies dysuria or hematuria. SKIN: Denies rash or itching. MUSCULOSKELETAL: Denies back pain, joint pain, or myalgia. NEUROLOGIC: Denies headache, numbness, dizziness, or weakness. PSYCHIATRIC: Denies anxiety or depression. [facility] Past Medical History Medical History Bipolar 1 disorder History of bipolar disorder (normal spontaneous vaginal delivery) x 2 at term Surgical History Surgical History History of D&C for SAB Social History Social History (Updated 04/17/23 @ 07:21 by Akash Thomas MD) Smoking status: Current every day smoker Tobacco type: cigarettes Second hand tobacco smoke exposure: Yes Alcohol intake: never Substance use: current Substance use type: marijuana Lack of Transportation: No Lack of Food: Never True Current Housing: I Have Housing Concerned About Future Housing: No Difficulty Paying Gas/Electric Bills: No Difficulty Paying for Meds: No Currently Unemployed: No Education: Don't Know Difficulty w/ Childcare or Family Care: No Spiritual care concerns: No Exam Narrative: GENERAL: Well-developed, well-nourished, and in no acute distress. HEAD: Normocephalic, atraumatic. EYES: PERRLA and EOMI. ENT: Small amount of clear rhinorrhea, no epistaxis. Mucous membranes moist. Oropharynx without tonsillar hypertrophy exudate or other lesions. CHEST: Clear to auscultation. No respiratory distress. No wheezes rales or rhonchi HEART: Regular rate and rhythm. No murmur heard. Normal peripheral pulses. ABDOMEN: Soft, nontender, nondistended, normal active bowel sounds. EXTREMITIES: Normal range of motion. No edema. SKIN: Warm, dry, no rash. NEURO: Alert and oriented x3. Moving all 4 limbs purposefully. PSYCH: Normal mood and affect. Course Course Emergency Course: 07:55 - The patient tested negative for COVID, influenza and RSV. I suspect other viral upper respiratory infection. Will discharge with recommendations for supportive care and primary care follow-up. Discussed return and emergency precautions in
[2023-04-17 07:51] LABS: Influenza A QL RT-PCR Negative (Negative); Influenza B QL RT-PCR Negative (Negative); RSV RNA, RT-PCR Negative (Negative); SARS-CoV-2 RNA PCR Negative (Negative)
== END 2023-04-17 08:06 | disposition home or self-care (01) ==
PROVIDERS: Emergency Provider Preventive Medicine Aerospace Medicine
DX: J06.9 Acute upper respiratory infection, unspecified (principal); F17.210 Nicotine dependence, cigarettes, uncomplicated; Z20.822 Contact with and (suspected) exposure to COVID-19
CPT/HCPCS: 71045; 87637; 99283

== ENCOUNTER 2023-11-29 00:23 | Emergency (ER) | payer BC, SELFPAY ==
--- NOTE | ~2023-11-29 | XR_ITS ---
XR chest 2V 11/29/2023 01:28 Indication: Cough and cold Procedure: 2 view chest Comparison: 04/17/2023 Findings: There is right middle lobe pneumonia. Heart size normal. No pleural effusion or pneumothora x. No edema. No acute osseous abnormality. Impression: 1: Right middle lobe pneumonia. Reviewed, dictated and finalized at location B. Impression: 1: Right middle lobe pneumonia.
--- NOTE | ~2023-11-29 | CT_ITS ---
EXAMINATION: CT abdomen pelvis w con DATE: 11/29/2023 01:48 INDICATION: Fever. Nausea. TECHNIQUE: Computed tomography (CT) of the abdomen and pelvis was performed with intravenous contrast . The dose-length product was 575.84 mGy-cm. Automated exposure control and iterative reconstruction technique were employed. COMPARISON: None. FINDINGS: There are reticulonodular densities of the right middle and lower lobe, consistent with pne umonia. Heart size normal. No significant pleural or pericardial effusion. There is focal fatty infil tration of the liver at the falciform ligament. Gallbladder is contracted. Fatty infiltration of the liver. The spleen, pancreas, adrenal glands and left kidney are unremarkable. There is nonobstructing right nephrolithiasis. Nonobstructive bowel gas pattern. Mild bladder wall thickening. No significan t vascular abnormality. No lymphadenopathy. No free air or free fluid. IMPRESSION: 1. Reticulonodular densities with consolidation of the right middle and lower lobe, consistent with p neumonia. 2: Nonobstructing right nephrolithiasis. 3: Mild bladder wall thickening. Consider cystitis in the appropriate clinical setting. Dr. Damion Guardado discussed with Dr. Nunez at 11/29/2023 06:35 CDT. Reviewed, dictated and finalized at location B. IMPRESSION: 1. Reticulonodular densities with consolidation of the right middle and lower l obe, consistent with pneumonia. 2: Nonobstructing right nephrolithiasis. 3: Mild bladder wall thickening. Consider cystitis in the appropriate clinical setting. Dr. Damion Guardado discussed with Dr. Nunez at 11/29/2023 06:35 CDT.
[2023-11-29 00:30] VITALS: BP 127/88; PULSE 94; RESP 18; TEMP 36.9; O2SAT 97
--- NOTE | 2023-11-29 00:58 | ED.URI ---
HPI - URI/Sore Throat General Chief Complaint: Upper Respiratory Infection <ELIZABETH Altamirano Last Filed: 11/29/23 03:16> Stated Complaint: cough, cold sweat, fever, N/V <ELIZABETH Altamirano Last Filed: 11/29/23 03:16> Time Seen by Provider: 11/29/23 00:34 <ELIZABETH Altamirano Last Filed: 11/29/23 03:16> Source: patient <ELIZABETH Altamirano Last Filed: 11/29/23 03:16> Mode of arrival: ambulatory <ELIZABETH Altamirano Filed: 11/29/23 03:16> Limitations: no limitations <ELIZABETH Altamirano Last Filed: 11/29/23 03:16> History of Present Illness HPI Narrative: patient is a 28-year-old female who presents the ED with multiple complaints. Patient reports she has been sick for the last 5 days with productive cough, nausea, vomiting, sweats, midsternal chest pain with coughing, fevers- Tmax reported to 105F. She also reports having lower abdominal pain since this morning. States she got off her menstrual cycle yesterday. Denies diarrhea, constipation, shortness of breath. Denies sick contacts. <ELIZABETH Altamirano Last Filed: 11/29/23 03:16> Related Data Home Medications: Home Medications Medication Instructions Recorded Confirmed acyclovir 400 mg tablet 400 mg PO DAILY 02/18/23 02/18/23 aripiprazole 10 mg tablet 10 mg PO DAILY 02/18/23 02/18/23 cholecalciferol (vitamin D3) 1,250 50,000 unit PO WEEKLY 02/18/23 02/18/23 mcg (50,000 unit) capsule metoclopramide HCl 10 mg tablet 10 mg PO DAILY 02/18/23 02/18/23 (Reglan) vit no.95-ferrous 1 tablet PO DAILY 02/18/23 02/18/23 fumarate 28 mg-folic acid 800 mcg tablet () <ELIZABETH Altamirano Last Filed: 11/29/23 03:16> Allergies/Adverse Reactions: Allergies Allergy/AdvReac Type Severity Reaction Status Date / Time ondansetron Allergy Mild Rash Verified 07/07/22 08:15 <Mirna Garcia PA-C - Last Filed: 11/29/23 03:16> Review of Systems Review of Systems: CONSTITUTIONAL: See HPI ENT: Denies rhinorrhea, congestion, sore throat. CARDIOVASCULAR: See HPI RESPIRATORY: See HPI. GASTROINTESTINAL: See HPI. GENITOURINARY: Denies dysuria or hematuria. <Mirna Garcia PA-C - Last Filed: 11/29/23 03:16> All systems reviewed & are unremarkable except as noted in HPI and below <Mirna Garcia PA-C - Last Filed: 11/29/23 03:16> [facility] Past Medical History Medical History: Medical History Bipolar 1 disorder History of bipolar disorder (normal spontaneous vaginal delivery) x 2 at term <Mirna Garcia PA-C - Last Filed: 11/29/23 03:16> Surgical History Surgical History: Surgical History History of D&C for SAB <Mirna Garcia PA-C - Last Filed: 11/29/23 03:16> Social History Social History: Social History Smoking status: Current every day smoker Tobacco type: cigarettes Second hand tobacco smoke exposure: Yes Alcohol intake: never Substance use: current Substance use type: marijuana Lack of Transportation: No Lack of Food: Never True Current Housing: I Have Housing Concerned About Future Housing: No Difficulty Paying Gas/Electric Bills: No Difficulty Paying for Meds: No Currently Unemployed: No Education: Don't Know Difficulty w/ Childcare or Family Care: No Spiritual care concerns: No <Mirna Garcia PA-C - Last Filed: 11/29/23 03:16> Exam Narrative: GENERAL: Well appearing, obese with BMI of 34.4, non-toxic, in no acute distress. HEAD: Normocephalic, atraumatic. RESPIRATORY: Airway patent, respirations nonlabored. Clear to auscultation bilaterally, no rales, rhonchi, wheezing. Frequent coughing on exam. No significant focal antonina
[2023-11-29] MEDS: BENZONATATE 100 MG CAPSULE 200 MG PO (01:07)
[2023-11-29] MEDS: ACETAMINOPHEN 500 MG TABLET 1000 MG PO (01:07)
[2023-11-29 01:15] LABS: Basophils Percent Auto 0.4 % (0.2-1.2); Eosinophils Absolute Auto 0.1 K/mm3 (0-0.3); Hematocrit 42.5 % (37.0-47.0); Hemoglobin 14.4 g/dL (12.0-15.0); Immature Granulocyte Absolute 0.03 K/mm3 (0.00-0.031); Immature Granulocyte Percent A 0.3 % (0-0.5); Lymphocytes Absolute Auto 2.77 K/mm3 (0.9-3.2); Lymphocytes Percent Auto 24.3 % (18.3-44.2); Mean Corpuscular HGB Conc 33.9 g/dl (32-36); Mean Corpuscular Hemoglobin 33.7 pg (26-34); Mean Corpuscular Volume 99.5 fl (80-100); Mean Platelet Volume 11.8 fl (7.4-10.4); Monocytes Absolute Auto 1.1 K/mm3 (0.1-0.6); Monocytes Percent Auto 9.5 % (2.6-8.5); Neutrophils Absolute Auto 7.4 K/mm3 (1.3-6.7); Neutrophils Percent Auto 64.5 % (45.5-73.1); Platelet Count Result 235 k/mm3 (150-375); Red Blood Count 4.27 M/mm3 (4.2-5.4); Red Cell Distribution Width 13.1 % (11.5-14.5); White Blood Count 11.4 K/mm3 (4.5-10.0)
[2023-11-29 01:19] LABS: Influenza A QL RT-PCR Negative (Negative); Influenza B QL RT-PCR Negative (Negative); SARS-CoV-2 RNA PCR Negative (Negative)
[2023-11-29 01:20] LABS: Appearance Urine Cloudy (Clear); Bacteria Urine 1+ /hpf; Bilirubin Urine Negative (Negative); Blood Urine Trace (Negative); Color Urine Yellow (Yellow); Glucose Urine UA Negative (Negative); Ketones Urine Negative (Negative); Leukocyte Esterase Ur 1+ LEU/UL (Negative); Nitrate Urine Negative (Negative); Non Pathogenic Casts 0-2; Protein Urine Negative (Negative); Specific Grav Ur 1.011 (1.001-1.035); Squamous Epithelial Cell Urine Moderate /hpf (Few)
[2023-11-29] MEDS: SODIUM CHLORIDE 0.9% IV 1,000 ML 999 ML IV CONT (01:20)
[2023-11-29 01:23] LABS: Add Urine Microscopic? YES
[2023-11-29 01:27] LABS: Alanine Aminotransferase 22 U/L (6-35); Albumin Level 4.4 g/dL (3.5-5.1); Alkaline Phosphatase 54 U/L (38-126); Anion Gap 7 mmol/L (4-12); Aspartate Amino Transferase 27 U/L (14-36); Bilirubin,Total 0.5 mg/dL (0.2-1.3); Blood Urea Nitrogen 8 mg/dL (7-17); Calcium 8.8 mg/dL (8.4-10.2); Carbon Dioxide 25 mmol/L (22-30); Chloride 104 mmol/L (98-107); Estimated CRCL calculation 111 ml/min; Estimated Glomerular Filt Rate > 60; Glucose 103 mg/dL (65-110); Potassium 3.4 mmol/L (3.4-5.0); Sodium 136 mmol/L (137-145)
[2023-11-29 02:23] VITALS: BP 108/66; PULSE 78; RESP 16; TEMP 37.1; O2SAT 95
[2023-11-29 03:07] LABS: RSV RNA, RT-PCR Negative (Negative)
== END 2023-11-29 04:45 | disposition home or self-care (01) ==
PROVIDERS: Physician Assistant; Emergency Provider Emergency Medicine
DX: N39.0 Urinary tract infection, site not specified (principal); J06.9 Acute upper respiratory infection, unspecified; R10.30 Lower abdominal pain, unspecified; Z20.822 Contact with and (suspected) exposure to COVID-19; F17.210 Nicotine dependence, cigarettes, uncomplicated; F31.9 Bipolar disorder, unspecified
CPT/HCPCS: 36415; 71046; 74177; 80053; 81001; 81025; 85025; 87086; 87634; 87636; 96361; 96365; 99284; A9270; J0696; J7030; Q9967

== ENCOUNTER 2024-02-20 09:37 | Emergency (ER) | payer BC, SELFPAY ==
--- NOTE | ~2024-02-20 | US_ITS ---
EXAMINATION: US pelvic complete w TV INDICATION: Pelvic pain with bleeding Comparison:Ultrasound dated 07/31/2022 TECHNIQUE: Multiple transabdominal and endovaginal sonographic images of the pelvis performed. FINDINGS: The uterus measures 7.7 x 4.4 x 4.6 cm. The endometrial complex measures 7 mm. The right ovary measures 2.1 x 1.9 x 2.1 cm and the left ovary measures 2.6 x 2.7 x 1.7 cm. There ar e small follicles in each ovary. Normal doppler signal in both ovaries. There is no free fluid in the pelvis. There are no abnormal masses seen on either side. IMPRESSION: 1. Unremarkable pelvic ultrasound Reviewed, dictated and finalized at location B.
[2024-02-20 09:41] VITALS: BP 109/75; PULSE 71; RESP 16; TEMP 37.1; O2SAT 99
[2024-02-20] MEDS: METOCLOPRAMIDE HCL INJ 10 MG/2 ML VIAL IV PUSH (10:04)
[2024-02-20] MEDS: KETOROLAC 30 MG/ML VIAL (*BKC) IV PUSH (10:04)
[2024-02-20 10:22] LABS: Basophils Absolute Auto 0.1 K/mm3 (0.0-0.1); Basophils Percent Auto 0.8 % (0.2-1.2); Eosinophils Absolute Auto 0.3 K/mm3 (0-0.3); Eosinophils Percent Auto 3.6 % (0-4.4); Hematocrit 44.3 % (37.0-47.0); Hemoglobin 15.1 g/dL (12.0-15.0); Immature Granulocyte Absolute 0.01 K/mm3 (0.00-0.031); Immature Granulocyte Percent A 0.1 % (0-0.5); Lymphocytes Absolute Auto 2.11 K/mm3 (0.9-3.2); Lymphocytes Percent Auto 29.5 % (18.3-44.2); Mean Corpuscular HGB Conc 34.1 g/dl (32-36); Mean Corpuscular Hemoglobin 34.3 pg (26-34); Mean Corpuscular Volume 100.7 fl (80-100); Mean Platelet Volume 11.8 fl (7.4-10.4); Monocytes Absolute Auto 0.6 K/mm3 (0.1-0.6); Neutrophils Absolute Auto 4.1 K/mm3 (1.3-6.7); Platelet Count Result 259 k/mm3 (150-375); Red Cell Distribution Width 13.4 % (11.5-14.5); White Blood Count 7.2 K/mm3 (4.5-10.0)
[2024-02-20 10:26] LABS: BEDSIDEPREGUCG Negative
[2024-02-20 10:33] LABS: Alanine Aminotransferase 17 U/L (6-35); Albumin Level 4.3 g/dL (3.5-5.1); Alkaline Phosphatase 55 U/L (38-126); Anion Gap 7 mmol/L (4-12); Aspartate Amino Transferase 23 U/L (14-36); Bilirubin,Total 0.5 mg/dL (0.2-1.3); Blood Urea Nitrogen 16 mg/dL (7-17); Carbon Dioxide 23 mmol/L (22-30); Chloride 106 mmol/L (98-107); Estimated CRCL calculation 121 ml/min; Estimated Glomerular Filt Rate > 60; Glucose 98 mg/dL (65-110); Sodium 136 mmol/L (137-145)
[2024-02-20 10:34] LABS: Add Urine Microscopic? YES; Appearance Urine Clear (Clear); Bacteria Urine None Seen /hpf; Bilirubin Urine Negative (Negative); Blood Urine 1+ (Negative); Color Urine Yellow (Yellow); Glucose Urine UA Negative (Negative); Ketones Urine Negative (Negative); Leukocyte Esterase Ur Negative LEU/UL (Negative); Nitrate Urine Negative (Negative); Non Pathogenic Casts 0-2; Protein Urine Negative (Negative); RBC Urine 0-2 /hpf (0-2); Specific Grav Ur 1.016 (1.001-1.035); Squamous Epithelial Cell Urine None Seen /hpf (Few); Urobilinogen Urine 0.2 mg/dL (<2.0); WBC Urine 0-5 /hpf (0-3); pH Urine 6.5 (5.0-9.0)
[2024-02-20 10:48] VITALS: BP 120/84; PULSE 84; RESP 16; O2SAT 100
--- NOTE | 2024-02-20 11:52 | ED.GENADULT ---
HPI - General Adult General Chief complaint: Vaginal Bleeding Stated complaint: vag bleed Time Seen by Provider: 02/20/24 09:49 History of Present Illness HPI narrative: Patient is a 28-year-old female who presents ER with lower abdominal pelvic cramping and vaginal bleeding. Began this morning. Has history of ovarian cyst. LMP last week. Does not believe she is . No fevers or chills or sweats. Past a singular large clot and then bleeding decreased. Patient does endorse mild nausea associated with this. No vaginal discharge. Related Data Home Medications Medication Instructions Recorded Confirmed acyclovir 400 mg tablet 400 mg PO DAILY 02/18/23 02/18/23 aripiprazole 10 mg tablet 10 mg PO DAILY 02/18/23 02/18/23 cholecalciferol (vitamin D3) 1,250 50,000 unit PO WEEKLY 02/18/23 02/18/23 mcg (50,000 unit) capsule metoclopramide HCl 10 mg tablet 10 mg PO DAILY 02/18/23 02/18/23 (Reglan) vit no.95-ferrous 1 tablet PO DAILY 02/18/23 02/18/23 fumarate 28 mg-folic acid 800 mcg tablet () Allergies Allergy/AdvReac Type Severity Reaction Status Date / Time ondansetron Allergy Mild Rash Verified 02/20/24 09:48 Review of Systems Review of Systems: All systems reviewed & are unremarkable except as noted in HPI and below Constitutional: Constitutional: Reports no additional constitutional complaints ENT: Reports system reviewed and no additional complaints, except as documented Cardiovascular: Cardiovascular: Reports no additional cardiovascular complaints Respiratory: Respiratory: Reports no additional respiratory complaints Gastrointestinal: Gastrointestinal: Reports abdominal pain, Denies diarrhea, Reports nausea and Denies vomiting Genitourinary: Genitourinary: Reports abnormal vaginal bleeding, Denies nocturia, Denies dysuria, Reports pelvic pain and Denies flank pain [facility] Past Medical History Medical History Bipolar 1 disorder History of bipolar disorder (normal spontaneous vaginal delivery) x 2 at term Surgical History Surgical History History of D&C for SAB Social History Social History Smoking status: Current every day smoker Tobacco type: cigarettes Second hand tobacco smoke exposure: Yes Alcohol intake: never Substance use: current Substance use type: marijuana Lack of Transportation: No Lack of Food: Never True Current Housing: I Have Housing Concerned About Future Housing: No Difficulty Paying Gas/Electric Bills: No Difficulty Paying for Meds: No Currently Unemployed: No Education: Don't Know Difficulty w/ Childcare or Family Care: No Spiritual care concerns: No Exam Narrative: GENERAL: Well-appearing, well-nourished, and in no acute distress. HEAD: Normocephalic, atraumatic. ENT: Mucous membranes moist. CHEST: Clear to auscultation. No respiratory distress. HEART: Regular rate and rhythm. Normal peripheral pulses. ABDOMEN: Soft, mild suprapubic discomfort without guarding, nondistended. EXTREMITIES: Normal range of motion. No edema. SKIN: Warm, dry, no rash. NEURO: Alert and oriented x3. PSYCH: Normal mood and affect. Course Course Emergency Course: Pain and nausea improved with Toradol and Reglan. Discussed imaging and lab results. Appropriate for discharge home. Vital Signs Vital signs: Vital Signs Temperature 98.8 F 02/20/24 09:41 Pulse Rate 71 02/20/24 09:41 Respiratory Rate 16 02/20/24 09:41 Blood Pressure 109/75 02/20/24 09:41 Pulse Oximetry 99 02/20/24 09:41 Oxygen Delivery Room Air 02/20/24 09:41 Temperature 98.8 F 02/20/24 09:41 Pulse Rate 84 02/20/24 10:48 Respiratory Rate 16 02/20/24 10:48 Blood Pressure 120/84 02/20/24 10:48 Pulse Oximetry 100 02/20/24 10:48 O
[2024-02-20 12:04] VITALS: BP 118/72; PULSE 75; RESP 16; O2SAT 99
== END 2024-02-20 12:05 | disposition home or self-care (01) ==
PROVIDERS: Emergency Provider Emergency Medicine; PCP Physician Assistant Medical
DX: R10.2 Pelvic and perineal pain (principal); N93.8 Other specified abnormal uterine and vaginal bleeding; F31.9 Bipolar disorder, unspecified
CPT/HCPCS: 36415; 76830; 76856; 80053; 81001; 81025; 85025; 96374; 96375; 99284; J1885; J2765

== ENCOUNTER 2024-04-08 09:41 | Emergency (ER) | payer BC, SELFPAY ==
--- NOTE | ~2024-04-08 | US_ITS ---
EXAMINATION: US pelvic complete w TV INDICATION: Right lower quadrant pain. History of cyst. Abnormal discharge. Comparison:No prior studies for comparison. TECHNIQUE: Multiple transabdominal and endovaginal sonographic images of the pelvis performed. FINDINGS: The uterus measures 8.3 x 4.5 x 4.6 cm. The endometrial complex measures 5 mm. There are ch anges of section scar in the myometrium. The right ovary measures 3 x 2.6 x 3.6 cm and the left ovary measures 1.4 x 1.3 x 1 cm. There is a 2. 5 cm right ovarian cyst. There is a paraovarian cyst measuring 1.2 cm and the left adnexa, likely devaughn ign. There are small follicles in each ovary. Normal doppler signal in both ovaries. There is no free fluid in the pelvis. There are no abnormal masses seen on either side. IMPRESSION: 1. Right ovarian cyst measuring 2.5 cm. 2: Left paraovarian cyst measuring 1.2 cm, likely benign. Reviewed, dictated and finalized at location B.
[2024-04-08 09:52] VITALS: BP 116/75; PULSE 65; RESP 15; TEMP 36.6; O2SAT 99
[2024-04-08 11:12] LABS: BEDSIDEPREGUCG Negative (Negative)
[2024-04-08 11:15] LABS: Basophils Absolute Auto 0.1 K/mm3 (0.0-0.1); Basophils Percent Auto 0.7 % (0.2-1.2); Eosinophils Absolute Auto 0.3 K/mm3 (0-0.3); Eosinophils Percent Auto 3.7 % (0-4.4); Hematocrit 44.7 % (37.0-47.0); Immature Granulocyte Absolute 0.02 K/mm3 (0.00-0.031); Immature Granulocyte Percent A 0.2 % (0-0.5); Lymphocytes Absolute Auto 2.24 K/mm3 (0.9-3.2); Lymphocytes Percent Auto 25.1 % (18.3-44.2); Mean Corpuscular HGB Conc 33.6 g/dl (32-36); Mean Corpuscular Hemoglobin 33.6 pg (26-34); Mean Corpuscular Volume 100.2 fl (80-100); Mean Platelet Volume 12.1 fl (7.4-10.4); Monocytes Absolute Auto 0.6 K/mm3 (0.1-0.6); Monocytes Percent Auto 6.6 % (2.6-8.5); Neutrophils Absolute Auto 5.7 K/mm3 (1.3-6.7); Neutrophils Percent Auto 63.7 % (45.5-73.1); Platelet Count Result 244 k/mm3 (150-375); Red Blood Count 4.46 M/mm3 (4.2-5.4); Red Cell Distribution Width 12.9 % (11.5-14.5); White Blood Count 8.9 K/mm3 (4.5-10.0)
[2024-04-08 11:19] LABS: Add Urine Microscopic? YES; Appearance Urine Clear (Clear); Bacteria Urine None Seen /hpf; Bilirubin Urine Negative (Negative); Blood Urine Negative (Negative); Color Urine Yellow (Yellow); Glucose Urine UA Negative (Negative); Ketones Urine Negative (Negative); Leukocyte Esterase Ur Trace LEU/UL (Negative); Nitrate Urine Negative (Negative); Non Pathogenic Casts 0-2; Protein Urine Negative (Negative); RBC Urine 0-2 /hpf (0-2); Specific Grav Ur 1.021 (1.001-1.035); Squamous Epithelial Cell Urine None Seen /hpf (Few); Urobilinogen Urine 0.2 mg/dL (<2.0); WBC Urine 0-5 /hpf (0-3)
[2024-04-08 11:25] LABS: Alanine Aminotransferase 22 U/L (6-35); Albumin Level 4.5 g/dL (3.5-5.1); Alkaline Phosphatase 52 U/L (38-126); Anion Gap 8 mmol/L (4-12); Aspartate Amino Transferase 24 U/L (14-36); Bilirubin,Total 0.4 mg/dL (0.2-1.3); Blood Urea Nitrogen 12 mg/dL (7-17); Calcium 9.4 mg/dL (8.4-10.2); Carbon Dioxide 26 mmol/L (22-30); Chloride 103 mmol/L (98-107); Estimated CRCL calculation 122 ml/min; Estimated Glomerular Filt Rate > 60; Glucose 94 mg/dL (65-110); Potassium 4.3 mmol/L (3.4-5.0); Sodium 137 mmol/L (137-145)
--- NOTE | 2024-04-08 11:48 | ED.ABDPAIN ---
HPI - Abdominal Pain General Chief Complaint: Abdominal Pain Stated Complaint: RLQ abdominal pain, discharge Time Seen by Provider: 04/08/24 10:31 Source: patient Mode of arrival: ambulatory Limitations: no limitations History of Present Illness HPI narrative: patient is a 28-year-old female who presents the ED with report of abdominal pain and abnormal vaginal discharge. Patient reports she has had blackish brown abnormal vaginal discharge since the end of January/beginning of February. She showed me a picture of this. She states she has had irregular cycles and abnormal spotting since then as well. Was previously regular on her cycles up until in end of January. Is currently on OCP. She also reports having intermittent pain in her RLQ. Hx of PCOS and frequent ovarian cysts. She had discussed her sx's with her OBGYN who referred her to the ED for further evaluation. Reports intermittent nausea, denies vomiting, diarrhea, constipation, fevers, dysuria, hematuria. Patient did recently have a pelvic exam performed by her OBGYN and tested negative for STDs. Related Data Home Medications Medication Instructions Recorded Confirmed acyclovir 400 mg tablet 400 mg PO DAILY 02/18/23 02/18/23 aripiprazole 10 mg tablet 10 mg PO DAILY 02/18/23 02/18/23 cholecalciferol (vitamin D3) 1,250 50,000 unit PO WEEKLY 02/18/23 02/18/23 mcg (50,000 unit) capsule metoclopramide HCl 10 mg tablet 10 mg PO DAILY 02/18/23 02/18/23 (Reglan) vit no.95-ferrous 1 tablet PO DAILY 02/18/23 02/18/23 fumarate 28 mg-folic acid 800 mcg tablet () Allergies Allergy/AdvReac Type Severity Reaction Status Date / Time ondansetron Allergy Mild Rash Verified 04/08/24 09:58 Review of Systems Review of Systems: All systems reviewed & are unremarkable except as noted in HPI. All systems reviewed & are unremarkable except as noted in HPI and below PMFSH Past Medical History Medical History Bipolar 1 disorder History of bipolar disorder (normal spontaneous vaginal delivery) x 2 at term Surgical History Surgical History History of D&C for SAB Social History Social History Smoking status: Current every day smoker Tobacco type: cigarettes Second hand tobacco smoke exposure: Yes Alcohol intake: never Substance use: current Substance use type: marijuana Lack of Transportation: No Lack of Food: Never True Current Housing: I Have Housing Concerned About Future Housing: No Difficulty Paying Gas/Electric Bills: No Difficulty Paying for Meds: No Currently Unemployed: No Education: Don't Know Difficulty w/ Childcare or Family Care: No Spiritual care concerns: No Exam Narrative: GENERAL: Well appearing, obese with BMI of 31.9, non-toxic, in no acute distress. HEAD: Normocephalic, atraumatic. RESPIRATORY: Airway patent, respirations nonlabored. Clear to auscultation bilaterally, no rales, rhonchi, wheezing. CARDIOVASCULAR: Regular rate and rhythm without murmurs, rubs, or gallops. ABDOMINAL: Soft, mild tenderness in R lower abdomen, R pelvic region. Nondistended. Normoactive BS. MUSCULOSKELETAL: Moves all extremities. No gross deformities. SKIN: Warm, dry, normal color. NEURO: A&O X3. Speech clear. PSYCHIATRIC: Appropriate mood and affect. Normal interaction. Course Vital Signs Vital signs: Vital Signs Temperature 97.8 F 04/08/24 09:52 Pulse Rate 65 04/08/24 09:52 Respiratory Rate 15 04/08/24 09:52 Blood Pressure 116/75 04/08/24 09:52 Pulse Oximetry 99 04/08/24 09:52 Oxygen Delivery Room Air 04/08/24 09:52 Temperature 97.8 F 04/08/24 09:52 Pulse Rate 64 04/08/24 13:01 Respiratory Rate 20 04/08/24 13:01 Blood Pressure 109/69 04/08/24 13:01 Pulse Oximetry
[2024-04-08 13:01] VITALS: BP 109/69; PULSE 64; RESP 20; O2SAT 97
== END 2024-04-08 13:13 | disposition home or self-care (01) ==
PROVIDERS: Emergency Provider Physician Assistant; PCP Physician Assistant Medical
DX: N93.8 Other specified abnormal uterine and vaginal bleeding (principal); N83.201 Unspecified ovarian cyst, right side; F17.210 Nicotine dependence, cigarettes, uncomplicated; Z79.899 Other long term (current) drug therapy
CPT/HCPCS: 36415; 76830; 76856; 80053; 81001; 81025; 85025; 99284

== ENCOUNTER 2024-05-15 08:59 | Emergency (ER) | payer BC, SELFPAY ==
[2024-05-15 09:00] VITALS: BP 116/73; PULSE 90; RESP 17; TEMP 36.1; O2SAT 100
[2024-05-15 09:19] VITALS: BP 103/59; PULSE 62; RESP 17; O2SAT 98
[2024-05-15 09:29] VITALS: BP 106/64; PULSE 74; RESP 17; O2SAT 99
[2024-05-15 09:36] LABS: Basophils Absolute Auto 0.1 K/mm3 (0.0-0.1); Basophils Percent Auto 0.8 % (0.2-1.2); Eosinophils Absolute Auto 0.3 K/mm3 (0-0.3); Eosinophils Percent Auto 3.3 % (0-4.4); Hematocrit 40.8 % (37.0-47.0); Hemoglobin 13.8 g/dL (12.0-15.0); Immature Granulocyte Absolute 0.02 K/mm3 (0.00-0.031); Immature Granulocyte Percent A 0.2 % (0-0.5); Lymphocytes Absolute Auto 2.13 K/mm3 (0.9-3.2); Lymphocytes Percent Auto 25.5 % (18.3-44.2); Mean Corpuscular HGB Conc 33.8 g/dl (32-36); Mean Corpuscular Hemoglobin 34.1 pg (26-34); Mean Corpuscular Volume 100.7 fl (80-100); Mean Platelet Volume 11.5 fl (7.4-10.4); Monocytes Absolute Auto 0.7 K/mm3 (0.1-0.6); Monocytes Percent Auto 7.8 % (2.6-8.5); Neutrophils Absolute Auto 5.2 K/mm3 (1.3-6.7); Neutrophils Percent Auto 62.4 % (45.5-73.1); Platelet Count Result 247 k/mm3 (150-375); Red Blood Count 4.05 M/mm3 (4.2-5.4); Red Cell Distribution Width 13.1 % (11.5-14.5); White Blood Count 8.4 K/mm3 (4.5-10.0)
[2024-05-15] MEDS: SODIUM CHLORIDE 0.9% IV 1,000 ML 999 ML IV CONT (09:38)
[2024-05-15] MEDS: PROMETHAZINE HCL 25 MG/ML AMPUL 12.5 MG IV PUSH (09:38)
[2024-05-15 09:45] LABS: Add Urine Microscopic? NO; Appearance Urine Clear (Clear); Bilirubin Urine Negative (Negative); Blood Urine Negative (Negative); Color Urine Yellow (Yellow); Glucose Urine UA Negative (Negative); Ketones Urine Negative (Negative); Leukocyte Esterase Ur Negative LEU/UL (Negative); Nitrate Urine Negative (Negative); Protein Urine Negative (Negative); Specific Grav Ur 1.017 (1.001-1.035); Urobilinogen Urine 0.2 mg/dL (<2.0); pH Urine 6.5 (5.0-9.0)
[2024-05-15 09:49] LABS: Alanine Aminotransferase 16 U/L (6-35); Albumin Level 3.9 g/dL (3.5-5.1); Alkaline Phosphatase 57 U/L (38-126); Anion Gap 4 mmol/L (4-12); Aspartate Amino Transferase 24 U/L (14-36); Bilirubin,Total 0.4 mg/dL (0.2-1.3); Blood Urea Nitrogen 11 mg/dL (7-17); Calcium 8.4 mg/dL (8.4-10.2); Carbon Dioxide 25 mmol/L (22-30); Chloride 109 mmol/L (98-107); Estimated CRCL calculation 107 ml/min; Estimated Glomerular Filt Rate > 60; Glucose 95 mg/dL (65-110); Lipase 528 U/L (23-300); Potassium 4.2 mmol/L (3.4-5.0); Sodium 138 mmol/L (137-145)
[2024-05-15 10:17] LABS: BEDSIDEPREGUCG Negative (Negative)
--- NOTE | 2024-05-15 10:40 | ED_ITS ---
HPI - General Adult General Chief complaint: Abdominal Pain Stated complaint: headache, vomiting, abd pain Time Seen by Provider: 05/15/24 09:20 History of Present Illness HPI narrative: Patient is a 28-year-old female who presents ER with multiple issues. Main issues abdominal cramping associated with vomiting. Began this morning. No fevers or chills or sweats. She is without diarrhea. No urinary symptoms. She also reports mild headache that is aching in nature. Related Data Home Medications Medication Instructions Recorded Confirmed acyclovir 400 mg tablet 400 mg PO DAILY 02/18/23 02/18/23 aripiprazole 10 mg tablet 10 mg PO DAILY 02/18/23 02/18/23 cholecalciferol (vitamin D3) 1,250 50,000 unit PO WEEKLY 02/18/23 02/18/23 mcg (50,000 unit) capsule metoclopramide HCl 10 mg tablet 10 mg PO DAILY 02/18/23 02/18/23 (Reglan) vit no.95-ferrous 1 tablet PO DAILY 02/18/23 02/18/23 fumarate 28 mg-folic acid 800 mcg tablet () Allergies Allergy/AdvReac Type Severity Reaction Status Date / Time ondansetron Allergy Mild Rash Verified 05/15/24 09:00 Review of Systems Review of Systems: All systems reviewed & are unremarkable except as noted in HPI and below Constitutional: Constitutional: Reports no additional constitutional complaints Cardiovascular: Cardiovascular: Reports no additional cardiovascular complaints Respiratory: Respiratory: Reports no additional respiratory complaints Gastrointestinal: Gastrointestinal: Reports no additional gastrointestinal complaints Musculoskeletal: Musculoskeletal: Reports no additional musculoskeletal complaints [facility] Past Medical History Medical History Bipolar 1 disorder History of bipolar disorder (normal spontaneous vaginal delivery) x 2 at term Surgical History Surgical History History of D&C for SAB Social History Social History Smoking status: Current every day smoker Tobacco type: cigarettes Second hand tobacco smoke exposure: Yes Alcohol intake: never Substance use: current Substance use type: marijuana Lack of Transportation: No Lack of Food: Never True Current Housing: I Have Housing Concerned About Future Housing: No Difficulty Paying Gas/Electric Bills: No Difficulty Paying for Meds: No Currently Unemployed: No Education: Don't Know Difficulty w/ Childcare or Family Care: No Spiritual care concerns: No Exam Narrative: GENERAL: Well-appearing, well-nourished, and in no acute distress. HEAD: Normocephalic, atraumatic. ENT: Mucous membranes moist. CHEST: Clear to auscultation. No respiratory distress. HEART: Regular rate and rhythm. Normal peripheral pulses. ABDOMEN: Soft, nontender, nondistended. EXTREMITIES: Normal range of motion. No edema. SKIN: Warm, dry, no rash. NEURO: Alert and oriented x3. PSYCH: Normal mood and affect. Course Course Emergency Course: Patient resting comfortably. Received IV fluids and antiemetics. Labs within acceptable limits. No UTI. Appropriate for discharge. Will provide supportive care for home. Vital Signs Vital signs: Vital Signs Temperature 97 F L 05/15/24 09:00 Pulse Rate 90 05/15/24 09:00 Respiratory Rate 17 05/15/24 09:00 Blood Pressure 116/73 05/15/24 09:00 Pulse Oximetry 100 05/15/24 09:00 Oxygen Delivery Room Air 05/15/24 09:00 Temperature 97 F L 05/15/24 09:00 Pulse Rate 74 05/15/24 09:29 Respiratory Rate 17 05/15/24 09:29 Blood Pressure 106/64 05/15/24 09:29 Pulse Oximetry 99 05/15/24 09:29 Oxygen Delivery Room Air 05/15/24 09:00 Medical Decision Making Vital Signs Vital Signs: Vital Signs Temperature 97 F L 05/15/24 09:00 Pulse Rate 90 05/15/24 09:00 Respiratory Rate 17 05/15/24 09:00 Blood Pressure 116/73 05/15/24 09:00 Pulse Oximetry 100 05/15/24 09:00 Oxygen Delivery Room Air 05/15/24 09:00 Temperature 97 F L 05/15/24 09:00 Pulse Rate 74 05/15/24 09:29 Respiratory Rate 17 05/15/24 09:29 Blood Pressure 106/64 05/15/24 09:29 Pulse Oximetry 99 05/15/24 09:29 Oxygen Delivery Room Air 05/15/24 09:00 Lab Data 05/15/24 09:32 05/15/24 09:30 Labs: Lab Results 05/15/24 05/15/24 05/15/24 Range/Units 09:30 09:32 09:37 WBC 8.4 (4.5-10.0) K/mm3 RBC 4.05 L (4.2-5.4) M/mm3 Hgb 13.8 (12.0-15.0) g/dL Hct 40.8 (37.0-47.0) % MCV 100.7 H (80-100) fl MCH 34.1 H (26-34) pg MCHC 33.8 (32-36) g/dl RDW 13.1 (11.5-14.5) % Plt Count 247 (150-375) k/mm3 MPV 11.5 H (7.4-10.4) fl Immature Gran % (Auto) 0.2 (0-0.5) % Neut % (Auto) 62.4 (45.5-73.1) % Lymph % (Auto) 25.5 (18.3-44.2) % [place] % (Auto) 7.8 (2.6-8.5) % Eos % (Auto) 3.3 (0-4.4) % Baso % (Auto) 0.8 (0.2-1.2) % Lymph # (Auto) 2.13 (0.9-3.2) K/mm3 [place] # (Auto) 0.7 H (0.1-0.6) K/mm3 Eos # (Auto) 0.3 (0-0.3) K/mm3 Baso # (Auto) 0.1 (0.0-0.1) K/mm3 Abs Immat Gran (auto) 0.02 (0.00-0.031) K/mm3 Absolute Neuts (auto) 5.2 (1.3-6.7) K/mm3 Absolute Nucleated RBC 0.000 (0.0-0.012) K/mm3 Nucleated RBC % 0.0 (0.0-0.2) % Sodium 138 (137-145) mmol/L Potassium 4.2 (3.4-5.0) mmol/L Chloride 109 H (98-107) mmol/L Carbon Dioxide 25 (22-30) mmol/L Anion Gap 4 (4-12) mmol/L BUN 11 (7-17) mg/dL Creatinine 0.70 (0.7-1.0) mg/dL Estim Creat Clear Calc 107 ml/min Estimated GFR > 60 (59 - ) Glucose 95 (65-110) mg/dL Calcium 8.4 (8.4-10.2) mg/dL Total Bilirubin 0.4 (0.2-1.3) mg/dL AST 24 (14-36) U/L ALT 16 (6-35) U/L Alkaline Phosphatase 57 (38-126) U/L Total Protein 7.0 (6.3-8.2) g/dL Albumin 3.9 (3.5-5.1) g/dL Lipase 528 H (23-300) U/L Urine Color Yellow (Yellow) Urine Appearance Clear (Clear) Urine pH 6.5 (5.0-9.0) Ur Specific [place] 1.017 (1.001-1.035) Urine Protein Negative (Negative) mg/dL Urine Glucose (UA) Negative (Negative) mg/dL Urine Ketones Negative (Negative) mg/dL Ur Blood (Man) Negative (Negative) Urine Nitrate Negative (Negative) Urine Bilirubin Negative (Negative) Urine Urobilinogen 0.2 (<2.0) mg/dL Leukocyte Esterase Rfl Negative (Negative) GALINA/UL POC Urine HCG, Qual (Negative) 05/15/24 Range/Units 10:12 WBC (4.5-10.0) K/mm3 RBC (4.2-5.4) M/mm3 Hgb (12.0-15.0) g/dL Hct (37.0-47.0) % MCV (80-100) fl MCH (26-34) pg MCHC (32-36) g/dl RDW (11.5-14.5) % Plt Count (150-375) k/mm3 MPV (7.4-10.4) fl Immature Gran % (Auto) (0-0.5) % Neut % (Auto) (45.5-73.1) % Lymph % (Auto) (18.3-44.2) % [place] % (Auto) (2.6-8.5) % Eos % (Auto) (0-4.4) % Baso % (Auto) (0.2-1.2) % Lymph # (Auto) (0.9-3.2) K/mm3 [place] # (Auto) (0.1-0.6) K/mm3 Eos # (Auto) (0-0.3) K/mm3 Baso # (Auto) (0.0-0.1) K/mm3 Abs Immat Gran (auto) (0.00-0.031) K/mm3 Absolute Neuts (auto) (1.3-6.7) K/mm3 Absolute Nucleated RBC (0.0-0.012) K/mm3 Nucleated RBC % (0.0-0.2) % Sodium (137-145) mmol/L Potassium (3.4-5.0) mmol/L Chloride (98-107) mmol/L Carbon Dioxide (22-30) mmol/L Anion Gap (4-12) mmol/L BUN (7-17) mg/dL Creatinine (0.7-1.0) mg/dL Estim Creat Clear Calc ml/min Estimated GFR (59 - ) Glucose (65-110) mg/dL Calcium (8.4-10.2) mg/dL Total Bilirubin (0.2-1.3) mg/dL AST (14-36) U/L ALT (6-35) U/L Alkaline Phosphatase (38-126) U/L Total Protein (6.3-8.2) g/dL Albumin (3.5-5.1) g/dL Lipase (23-300) U/L Urine Color (Yellow) Urine Appearance (Clear) Urine pH (5.0-9.0) Ur Specific [place] (1.001-1.035) Urine Protein (Negative) mg/dL Urine Glucose (UA) (Negative) mg/dL Urine Ketones (Negative) mg/dL Ur Blood (Man) (Negative) Urine Nitrate (Negative) Urine Bilirubin (Negative) Urine Urobilinogen (<2.0) mg/dL Leukocyte Esterase Rfl (Negative) GALINA/UL POC Urine HCG, Qual Negative (Negative) Discharge Plan Discharge Clinical Impression: Abdominal cramping, Vomiting Patient Disposition: Home, Self-Care Condition: Stable Instructions: Abdominal Pain (ED) Additional Instructions: Return to the emergency department if you develop severe abdominal pain, severe nausea and vomiting to the point where you are unable to keep down fluids, if you develop chest pain or difficulty breathing, blood in your stool, dizziness or fainting, or if you develop any other new or concerning symptoms as these could be signs of more serious medical illness. Try to stay well hydrated. Prescriptions: New promethazine 12.5 mg tablet 12.5 mg PO TID Qty: 14 0RF No Action sulfamethoxazole-trimethoprim [Bactrim DS] 800-160 mg tablet 1 tablet PO Q12H Qty: 14 0RF benzonatate 200 mg capsule 200 mg PO TID PRN (Reason: cough) Qty: 30 0RF azithromycin 250 mg tablet See Rx Instructions .ROUTE .COMPLEX Qty: 6 0RF Rx Instructions: For 250 mg dose pack: take 500 mg today (day 1), then 250 mg for 4 days (days 2-5) acyclovir 400 mg tablet 400 mg PO DAILY metoclopramide HCl [Reglan] 10 mg Tablet 10 mg PO DAILY aripiprazole 10 mg tablet 10 mg PO DAILY cholecalciferol (vitamin D3) 1,250 mcg (50,000 unit) capsule 50,000 unit PO WEEKLY PNV cmb#95-ferrous fumarate-FA [] 28 mg iron- 800 mcg Tablet 1 tablet PO DAILY hydrocodone-acetaminophen 5-325 mg tablet 1 tablet PO Q6H PRN (Reason: pain) Qty: 28 0RF ibuprofen 600 mg tablet 600 mg PO Q6H PRN (Reason: pain) Qty: 30 0RF Follow-up/Referrals: Jermaine,ILANA Delaney [Primary Care Provider] - 1 Week
== END 2024-05-15 10:53 | disposition home or self-care (01) ==
PROVIDERS: Emergency Provider Emergency Medicine; PCP Physician Assistant Medical
DX: R10.9 Unspecified abdominal pain (principal); R11.10 Vomiting, unspecified; F31.9 Bipolar disorder, unspecified; F17.210 Nicotine dependence, cigarettes, uncomplicated; Z79.899 Other long term (current) drug therapy
CPT/HCPCS: 36415; 80053; 81003; 81025; 83690; 85025; 96361; 96374; 99284; J2550; J7030

== ENCOUNTER 2024-05-22 17:09 | Emergency (ER) | payer BC, SELFPAY ==
[2024-05-22 17:24] VITALS: BP 105/69; PULSE 80; RESP 18; TEMP 36.2; O2SAT 98
== END 2024-05-22 18:15 | disposition left against medical advice (07) ==
PROVIDERS: PCP Physician Assistant Medical
DX: R05.9 Cough, unspecified (principal)
CPT/HCPCS: 99199

== ENCOUNTER 2024-10-24 23:24 | Emergency (ER) | payer BC, SELFPAY ==
--- NOTE | ~2024-10-24 | CT_ITS ---
CT of the Abdomen and Pelvis: Indication: Lower GI bleed, colitis, pain Technique: 2.5 mm axial scans were obtained through the abdomen and pelvis following intravenous adm inistration of 100 cc of Omnipaque 350. Dose reduction technique was used on this scan by utilizing a utomated exposure control and iterative reconstruction technique. The dose-length product (DLP) was 6 49.99 mGy-cm. Findings: Scans through the lung bases are unremarkable. The liver, spleen, pancreas, gallbladder, adrenals and left kidney are within normal limits. 6 mm non obstructing right renal stone present. No evidence of aortic aneurysm. No lymphadenopathy. No bowel obstruction or bowel wall thickening. There is no evidence to suggest acute appendicitis. Images through the pelvis were performed. Urinary bladder unremarkable. No pelvic mass seen. No ascit es. Bilateral L5 pars interarticularis defects are present. Impression: No acute abnormalities seen. 6 mm nonobstructing right renal stone. Reviewed, dictated and finalized at [facility]. Impression: No acute abnormalities seen. 6 mm nonobstructing right renal stone.
[2024-10-24 23:25] VITALS: BP 124/75; PULSE 84; RESP 18; TEMP 36.6; O2SAT 100
--- OUTSIDE RECORDS SUMMARY | 2024-10-24 23:26 | XMS_ITS | Data Portability ---
Author Organization [place] [facility], Main Office Address [address] [place] [address] Care Team Providers Care Major Account Representative Name Role Phone JENNIFER AMBROSIO Primary Care Provider [phone] Assessment No assessment recorded. Plan of Treatment Reminders Order Date Submit Date Provider Last Modified By Organization Details Last Modified Time Details Appointments None recorded. Lab None recorded. Referral None recorded. Procedures None recorded. Surgeries None recorded. Imaging audiogram 2023 024 [facility], [address], [place], [address], 17:14:20 Medication Orders None recorded. Patient TargetsNo targets recorded. Patient InstructionsNo instructions recorded. Reason for Referral None Reported. Results Created Date Observation Date Name Description Value Unit Range Abnormal Flag Note LastModifiedBy Organization Detail LastModifiedTime 08/11/19 24 08/11/2023 audio gram + tympa nogra m No observ ation record ed. [email or web address] [facility] [address] [place], [address], 08/19/2023 09:30:57 08/12/19 24 08/12/2023 audio gram + tympa nogra m No observ ation record ed. BARCODE [facility] [address] [place], [address], 08/12/2023 10:35:19 Result Notes None recorded. Problems Name Problem SNOMED Code Status Onset Date Resolution Date Notes Provider Name and Address Organization Details Recorded Time Asymmetrical sensorineural hearing loss 630793986 Active 2023 Mirna Fall RN null, [facility] [employer] [facility] 4 13:12:09 Dysphagia 45384176 Active 2023 Mirna Fall RN null, [facility] [employer] [facility] 4 13:12:32 Allergic rhinitis 81145755 Active 2023 Tavo Prasad MD [address], [address], [place], [address], [facility] [employer] [facility] 4 13:22:22 Pain in throat 864099111 Active 2023 Tavo Prasad MD [address], [address], [place], [address], [facility] [employer] [facility] 4 13:22:22 Sensorineural hearing loss 47222513 Active 2023 Tavo Prasad MD [address], [address], [place], [address], [facility] [employer] [facility] 13:23:10 Problem Notes None recorded. Procedures Surgical History None recorded. Imaging Results Imaging Date Name Status LastModified by Organiz ation Details LastModified Time 08/11/2023 audiogram + tympanogram completed [email or web address] [facility] [address] [place], [address], 08/19/2023 09:30:57 08/12/2023 audiogram + tympanogram completed [facility] [address] [place], [address], 08/12/2023 10:35:19 Procedure Notes None recorded. Medical Equipment None Reported. Allergies Allergen ID Allergen Name Allergen Category Reaction Reaction Severity Criticality Documentation Date Start Date Code Code System Note Provider Name and Address Organization Details Recorded Time 52308 Zofran medicatio n rash Not available Not available 07/22/2023 96509 RxNorm pt. exper ience d react ion via IV, but unsur e how med. may react if inges marion/ orall y. FERNIE Feldman null, [facility] 4 09:46:42 Medications Name Sig Start Date Stop Date Status Note LastModified by Organization Details LastModified Time cyclobenzap rine 10 mg tablet TAKE 1 TABLET BY MOUTH EVERY 8 HOURS active Not Available Not Available No t Available amoxicillin 500 mg capsule TK 1 C PO BID WF OR MILK 07/22 completed Not Available Not Available Not Available citalopram 40 mg tablet TK 1 T PO QD 07/22 completed Not Available Not Available Not Available azithromyci n 250 mg tablet 07/22 completed Not Available Not Available Not Available fluconazole 150 mg tablet TK 1 T PO QD FOR 3 DAYS 07/22 completed Not Available Not Available Not Available hydrocodone 5 mg-acetamin ophen 325 mg tablet TAKE 1 TABLET BY MOUTH EVERY 6 HOURS NEEDED FOR PAIN active Not Available Not Available No t Available promethazin e 12.5 mg tablet TAKE 1 TABLET BY MOUTH EVERY 6 HOURS NEEDED FOR NAUSEA AND VOMITING active Not Available Not Available No t Available prednisone 20 mg tablet TK 3 TS PO QD FOR 5 DAYS 07/22 completed Not Available Not Available Not Available clindamycin HCl 150 mg capsule TK 2 CS PO Q 6 H 07/22 completed Not Available Not Available Not Available penicillin V potassium 500 mg tablet TK 1 T PO QID TAT 07/22 completed Not Available Not Available Not Available metronidazo le 500 mg tablet TAKE 1 TABLET BY MOUTH 2 TIMES DAILY FOR 7 DAYS 07/29 completed Not Available Not Available Not Available phentermine 37.5 mg tablet TAKE 1 TABLET BY MOUTH EVERY OTHER DAY active Not Available Not Available No t Available acyclovir 400 mg tablet TAKE 1 TABLET BY MOUTH EVERY DAY active Not Available Not Available No t Available hydrocodone 10 mg-acetamin ophen 325 mg tablet TK 1 T PO Q 6 H PRN P 07/22 completed Not Available Not Available Not Available tramadol 50 mg tablet TK 1 T PO BID 07/22 completed Not Available Not Available Not Available amoxicillin 875 mg tablet TAKE 1 TABLET BY MOUTH EVERY 12 HOURS FOR 10 DAYS 07/29 completed Not Available Not Available Not Available metoclopram juan 5 mg tablet TAKE 1 TABLET BY MOUTH EVERY 6 HOURS NEEDED FOR NAUSEA AND VOMITING active Not Available Not Available No t Available promethazin e 25 mg tablet TAKE 1 TABLET BY MOUTH EVERY 8 HOURS NEEDED FOR NAUSEA AND VOMITING active Not Available Not Available No t Available Banophen 25 mg capsule TK ONE C PO Q 6 H PRN 07/22 completed Not Available Not Available Not Available diclofenac sodium 50 mg tablet,jesus yed release TK 1 T PO BID 07/22 completed Not Available Not Available Not Available ergocalcife rol (vitamin D2) 1,250 mcg (50,000 unit) capsule TAKE 1 CAPSULE BY MOUTH ONCE A WEEK active Not Available Not Available No t Available ibuprofen 600 mg tablet TAKE ONE TABLET BY MOUTH EVERY 6 HOURS NEEDED FOR PAIN active Not Available Not Available No t Available naproxen 500 mg tablet TAKE 1 TABLET BY MOUTH TWICE DAILY active Not Available Not Available No t Available metoclopram juan 10 mg tablet TK 1 T PO Q 6 H 07/22 completed Not Available Not Available Not Available amoxicillin 875 mg-potassiu m clavulanate 125 mg tablet TAKE 1 TABLET BY MOUTH EVERY 12 HOURS FOR 10 DAYS 07/29 completed Not Available Not Available Not Available Abilify 10 mg tablet Take 1 tablet every day by oral route. active Not Available Not Available No t Available nitrofurant oin monohydrate /macrocryst als 100 mg capsule TK 1 C PO Q 12 H FOR 14 DAYS 07/22 completed Not Available Not Available Not Available acyclovir active Not Available Not Jaymie ilable Not Available biotin active Not Available Not Availa ble Not Available 07/29 completed Not Available Not Available Not Available cholecalcif abigail (vitamin D3) 1,250 mcg (50,000 unit) capsule TAKE 1 CAPSULE (50,000 UNITS) BY MOUTH EVERY 7 DAYS active Not Available Not Available No t Available Vitamins Plus Low Iron 27 mg iron-1 mg tablet TAKE 1 TABLET BY MOUTH ONCE DAILY active Not Available Not Available No t Available Vitals Date Recorded Body height Body mass index (BMI) Body weight Body temperature Provider Name and Address Organization Details Last Updated DateTime 07/29/2023 162.56 cm 36.9 kg/m2 68979.36 g 98.2 [degF] Mirna Fall RN [place] [facility] 07/29/2023 12:20:58 Social History Question Answer Notes LastModified by Organizat ion Details LastModified Time Tobacco Smoking Status Current Every Day Smoker AraFERNIE Mcelroy, [facility] 07/22/2023 09:51:28 What Is Your Level Of Alcohol Consumption? None [email or web address] Information not available 07/22/2023 Sex: Unknown Functional Status None recorded. Mental Status None recorded. Family History Relationship Description Onset Age of this Age Resolved Age Notes LastModified by Organization Details LastModified Time Father Infection of ear [email or web address] Not available 2023 09:48:54 Medical History Condition Response HEART DISEASE/HEART PROBLEMS ENT Y HYPERTENSION Y Gynecological HistoryNo gynecological history recorded. Obstetrics History GPAL:G 0 P 0 0 0 0 Past Encounters Encounter ID Performer Location Encounter Start Date Encounter Closed Date Diagnosis/Indication Diagnosis SNOMED-CT Code Diagnosis ICD10 Code Diagnosis Note [id number] Tavo Prasad MD [facility] [place] [address] [place] [address] 07/29/2023 12:10:10 08/03/2023 11:43:40 Allergic rhinitis 66485691 J30.0 Encourage to take OTC Zyrtec type meds with flonase for 3-4 months. Dysphagia 95817823 R13.1 0 Sensorineu ral hearing loss 63591731 H90.5 Health Concerns Section Related Observation LastModified by Organization Detai ls LastModified Time None Recorded Concern Status LastModified by Organization Details LastModified Time None Recorded Advance Directives Directive None Recorded Payers Encounter Date Sequence Insurance Name Policy Number Policy Law Covered Member ID Law Member ID Guarantor Name 07/29/2023 1 [facility] (MEDICAID REPLACEMENT - HMO) [id number] Kellie Garrido [id number] Kellie Garrido Notes Date Note Type Note Provider Name and Address Organization Details Recorded Time 07/29/2023 text/html left hearing los s for years. Dysphagia for months. Nasal congestion also for years. Tavo Prasad MD [address] [place] [address], [place], [address], [facility] [employer] 07/29/2023 13:24:37 OBGyn Episode No OBEpisode recorded.
--- OUTSIDE RECORDS SUMMARY | 2024-10-24 23:26 | XMS_ITS | Encounter Summary ---
Author Organization [facility] Address [address] [place] [address] Phone Care Team Providers Care Identification Printing Machine Setter Name Role Phone Monisha Clinton MD Primary Care Provider Reason for Visit * Reason Comments Medication Refill Encounter Details Date Type Department Care Team (Late st Contact Info) Description 06/04/2021 Refill [facility] - Neurology [facility] [address] [place] [id number] Carlos Hernández MD [address] [place] [id number] Medication Refill Social History Tobacco Use Types Packs/Day Years Used Date Smoking Tobacco: Every Day Cigarettes Smokeless Tobacco: Never Alcohol Use Standard Drinks/Week Comments Not Currently 0 (1 standard drink = 0.6 oz pur e alcohol) Comments No Sex and Gender Information Value Date Recorded Sex Assigned at Not on file Legal Sex Female 12:38 AM CDT Gender Identity Not on file Sexual Orientation Not on file documented as of this encounter Plan of Treatment Not on file documented as of this encounter Visit Diagnoses Not on filedocumented in this encounter Care Teams Identification Printing Machine Setter Relationship Specialty Start Date End Date Monisha Clinton MD [address] [place] [address] PCP - General Internal Medicine 06/03/19 documented as of this encounter
--- OUTSIDE RECORDS SUMMARY | 2024-10-24 23:26 | XMS_ITS | Clinical Summary ---
Author Organization [facility] Address [address] [place] [address] Phone Care Team Providers Care Chief Clinical Dietitian Name Role Phone Victor Manuel Garcia MD Primary Care Provider Allergies Active Allergy Reactions Criticality Noted Date Comments Ondansetron Hcl Rash Medium 10/06/2017 IV-spread as it infused Medications VIT CALC,IRON,FOLIC ( VITAMIN ORAL) Take by mouth. Active ferrous sulfate (IRON ORAL) Take by mouth. Active ESCITALOPRAM OXALATE (LEXAPRO ORAL) Take by mouth. Active norethindrone-e .estradiol-iron (JUNEL FE 07/11) 1 mg-20 mcg (21)/75 mg (7) per tablet Take 1 tablet by mouth. 09/08/2017 Active chlorzoxazone (PARAFON FORTE) 500 mg tabletIndicatio ns:Muscle Spasm Take 1 tablet (500 mg total) by mouth 3 (three) times a day as needed for muscle spasms. 90 tablet 10/07/2017 Active phenazopyridine (PYRIDIUM) 200 mg tabletIndicatio ns:Dysuria Take 1 tablet (200 mg total) by mouth 3 (three) times a day as needed for bladder spasms for up to 6 doses. 6 tablet 10/20/2017 Active Active Problems Problem Noted Date Diagnosed Date Lumbar disc herniation 10/20/2017 Assessment & Plan (10/20/2017 10:14 PM CDT): Instructed to take diclofenac BID. Continue lorzone. Referral was provided to pain mgmt after imaging. PT ordered. 1. 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 2. 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 Pars defect with spondylolisthesis 10/20/2017 Assessment & Plan (10/20/2017 10:13 PM CDT): Instructed to take diclofenac BID. Continue lorzone. Referral was provided to pain mgmt after imaging. PT ordered. Abnormal vaginal bleeding 10/20/2017 Assessment & Plan (10/20/2017 10:15 PM CDT): Started week 4 post . On OCP. Has been bleeding since-ongoing x 2 months now. (delivered June2017). Using pads up to 5 x daily. Some cramping is reported. GRID TRIMMER referral today. Bipolar affective 10/07/2017 Assessment & Plan (10/07/2017 9:11 PM CDT): Psychological condition is longstanding-since childhood. Continue current treatment regimen. Regular aerobic exercise. Psychological condition will be reassessed in 2 weeks. No SI/HI. Antepartum anemia 10/07/2017 Overview (10/07/2017): . Assessment & Plan (10/07/2017 9:12 PM CDT): Labs today. Continue current. Recurrent UTI 10/07/2017 Overview (10/07/2017): previous procedures Assessment & Plan (10/20/2017 10:17 PM CDT): 10/17/17 [facility] ER visit. UA 26-50 WBC, RBC 3-5. On keflex. UA repeat after completion of antibiotics.+ dysuria. Pyridium given. Most likely will need urology referral. Assessment & Plan (10/07/2017 9:12 PM CDT): Self reported with hx of reduced renal affect. Labs today. Continue current. Cervical pain (neck) 10/07/2017 Assessment & Plan (10/08/2017 11:18 PM CDT): Chronic intermittent. Now with paraesthesia. Imaging today. As needed refer. Ice/heat rotation no more than 15 minute each discussed Bilateral low back pain without sciatica 018 Assessment & Plan (10/20/2017 10:12 PM CDT): Instructed to take diclofenac BID. Continue lorzone. Referral was provided to pain mgmt after imaging. PT ordered. Assessment & Plan (10/08/2017 11:19 PM CDT): Imaging today. Core strengthening discussed. NSAID if GFR WNL. Self reported hx of kidney issues . Tobacco use 04/03/2017 Assessment & Plan (10/07/2017 9:11 PM CDT): Newly identified. Not ready to quit. Immunizations Immunization Administration Dates Next Due Hep A, Unspecified 08/25/2017 Influenza, Quadrivalent, Split, Intramuscular Tdap 08/07/2017,05/04/2017 Surgical History Surgery Date Site/Laterality Comments DILATION AND CURETTAGE OF UTERUS 06/22/2014 - 06/21/2015 miscarriage Medical History Medical History Date Comments Bipolar affective (HCC) Recurrent UTI previous procedu res Family History Medical History Relation Name Comments Asthma Brother 1 No Known Problems Father No Known Problems Mother Cancer Other Heart attack Other Relation Name Status Comments Brother 1 Alive Brother 2 Alive Father Alive Mother Alive Other Social History Tobacco Use Types Packs/Day Years Used Date Smoking Tobacco: Every Day Cigarettes 0.5 12 Smokeless Tobacco: Current Tobacco Cessation:Ready to Q uit: Not Asked; Counseling Given: Not Answered Alcohol Use Standard Drinks/Week Comments No 0 (1 standard drink = 0.6 oz pur e alcohol) Personal Safety Answer Date Recorded Getting School Help Needed Not on file 08/09 Comments Unknown Sex and Gender Information Value Date Recorded Sex Assigned at Not on file Legal Sex Female 11:14 PM NEONATAL SPECIALIST Gender Identity Not on file Sexual Orientation Not on file Occupation Industry Job Start Date Job End Date unemployed Not on file Not on file Not on file Obstetrics History Para Term AB IAB SAB Ectopic Multiple Livin g Live Births 7 2 4 4 Date Outcome GA Total Labor Labor/2nd/3rd Weight Sex Type Anes PTL Kristin A1 A5 Name Clin Para Para SAB SAB SAB SAB Last Filed Vital Signs Vital Sign Reading Time Taken Comments Blood Pressure 138/71 07/30/2022 4:32 PM NEONATAL SPECIALIST Pulse 85 07/30/2022 4:32 PM NEONATAL SPECIALIST Temperature 36.8 C (98.3 F) 07/30/2022 4:32 PM NEONATAL SPECIALIST Respiratory Rate 16 07/30/2022 4:32 PM NEONATAL SPECIALIST Oxygen Saturation 100% 07/30/2022 4:32 PM NEONATAL SPECIALIST Inhaled Oxygen Concentration - - Weight 71.7 kg (158 lb) 07/30/2022 4:32 PM NEONATAL SPECIALIST Height 162.6 cm (5' 4 ) 07/30/2022 4:32 PM NEONATAL SPECIALIST Body Mass Index 27.12 07/30/2022 4:32 PM NEONATAL SPECIALIST Plan of Treatment Health Maintenance Due Date Last Done Comments Hepatitis C Screening 1993 Varicella Vaccines (1 of 2 - 13+ 2-dose series) 2006 Regular Well Visit/Exam 18-64 2011 Pneumococcal vaccine <65 (1 of 2 - PCV) 2012 Cervical Cancer Screening 09/08/2018 09/08/2017 Depression Screening 10/20/2018 10/20/2017, 10/07/19 18 Influenza Vaccine (Season Ended) 2025 04/03/2017, 04/30/2010 DTaP/Tdap/Td Vaccine (9 - Td or Tdap) 08/07/2027 08/07/2017, 05/04/2017, 05/31/2014, Additional history exists Hepatitis B Screening Completed 03/21/2005 , 07/03/2004, 12/11/1999 HPV Vaccines Aged Out No longer eligi ble based on patient's age to complete this topic Procedures Procedure Name Priority Date/Time Associated Diagnosis Comments PAP SMEAR WITH HPV Routine 09/08/2017 from Last 3 Months or Most Recently Relevant to Health Maintenance Results * PAP SMEAR WITH HPV (09/08/2017) Pap smear Normal Historical Provider HEALTH MAINTENANCE Final Result from Last 3 Months or Most Recently Relevant to Health Maintenance Insurance [facility] [place] [address] [place] [address] [place] [place] [address] DIVISION Member Subscriber Plan / Payer (Ef fective 2021-Present) Name:Kellie Garrido Relation to Subscriber:Self Name:Kellie Garrido Payer ID:[id number] Group ID:Not on file Type:MEDICAID [place] Address: [address] HEALTH PLAN Care Teams Chief Clinical Dietitian Relationship Specialty Start Date End Date Victor Manuel Garcia MD [address] [facility] [address] [place] [address] PCP - General 10/15/17
--- OUTSIDE RECORDS SUMMARY | 2024-10-24 23:26 | XMS_ITS | Referral Summary ---
Author Organization [facility] Address [address] [place] [address] Phone Care Team Providers Care Veterinary Science Teacher Name Role Phone Victor Manuel Garcia MD [...] 5 x daily. Some cramping is reported. METAL ROLLING MILL OPERATOR referral today. Bipolar affective 10/07/2017 Assessment & [...] & Plan (10/20/2017 10:17 PM CDT): 10/17/17 [facility] ER visit. UA 26-50 WBC, RBC [...] 08/25/2017 Influenza, Quadrivalent, Split, Intramuscular Tdap 08/07/2017,05/04/2017 Social History Tobacco Use Types Packs/Day Years [...] on file Legal Sex Female 11:14 PM UNIVERSITY TUTOR Gender Identity Not on file Sexual Orientation Not on file Occupation Industry Job Start Date Job End Date unemployed Not on file Not on file Not on file Last Filed Vital Signs Vital Sign Reading Time Taken Comments Blood Pressure 138/71 07/30/2022 4:32 PM UNIVERSITY TUTOR Pulse 85 07/30/2022 4:32 PM UNIVERSITY TUTOR Temperature 36.8 C (98.3 F) 07/30/2022 4:32 PM UNIVERSITY TUTOR Respiratory Rate 16 07/30/2022 4:32 PM UNIVERSITY TUTOR Oxygen Saturation 100% 07/30/2022 4:32 PM UNIVERSITY TUTOR Inhaled Oxygen Concentration - - Weight 71.7 kg (158 lb) 07/30/2022 4:32 PM UNIVERSITY TUTOR Height 162.6 cm (5' 4 ) 07/30/2022 4:32 PM UNIVERSITY TUTOR Body Mass Index 27.12 07/30/2022 4:32 PM UNIVERSITY TUTOR Plan of Treatment Not on file Procedures Procedure Name Priority Date/Time Associated Diagnosis Comments PAP SMEAR WITH HPV Routine 09/08/2017 from Last 3 Months or Most Recently Relevant to Health Maintenance Results * PAP SMEAR WITH HPV (09/08/2017) HM Pap smear Normal Historical Provider MD HEALTH MAINTENANCE Final Result from Last 3 Months or Most Recently Relevant to Health Maintenance [place] [facility] Care Teams Veterinary Science Teacher Relationship Specialty Start Date End Date Victor Manuel Garcia MD [address] [facility] [address] [place] [address] PCP - General 10/15/17
--- OUTSIDE RECORDS SUMMARY | 2024-10-24 23:26 | XMS_ITS | Encounter Summary ---
Author Organization [facility] Address [address] [address] Phone Care Team Providers Care Bunghole Borer Name Role Phone Monisha Clinton MD Primary Care Provider Reason for Visit * Reason Comments Medication Refill Encounter Details Date Type Department Care Team (Late st Contact Info) Description 04/22/2021 Refill [facility] - Neurology [facility] [address] [place] [id number] Carlos Hernández MD [address] [place] [id number] Medication Refill Social History Tobacco Use Types [...] on filedocumented in this encounter Care Teams Bunghole Borer Relationship Specialty Start Date End Date Monisha Clinton MD [address] [place] [address] PCP - General Internal Medicine 06/03/19 documented as of this encounter
--- OUTSIDE RECORDS SUMMARY | 2024-10-24 23:26 | XMS_ITS | Clinical Summary ---
Author Organization [facility] Address [address] [place] [address] Care Team Providers Care Lodge Attendant Name Role Phone Monisha Clinton MD Primary Care Provider Allergies Active Allergy Reactions Criticality Noted Date Comments Ondansetron Unknown 11/01/2019 Medications metoclopramide (REGLAN) 10 MG Tablet Take 10 mg by mouth 4 times daily. Active buPROPion (WELLBUTRIN) 150 MG XL tablet TAKE 1 TABLET BY MOUTH ONCE DAILY IN THE MORNING 30 Tablet 2 04/22/2021 Active propranolol (INDERAL) 20 MG Tablet TAKE 1 TABLET BY MOUTH THREE TIMES A DAY 90 Tablet 3 06/04/2021 Active Family History Medical History Relation Name Comments Chronic Obstructive Pulmonary Disease Father Cancer Maternal Grandfather Cancer Maternal Grandmother Thyroid Disease Mother Diabetes Paternal Grandmother Relation Name Status Comments Father Alive Maternal Grandfather Maternal Grandmother Mother Alive Paternal Grandmother Social History Tobacco Use Types Packs/Day Years Used Date Smoking Tobacco: Every Day Cigarettes Smokeless Tobacco: Never Tobacco Cessation:Ready to Q uit: Yes Alcohol Use Standard Drinks/Week Comments Not Currently 0 (1 standard drink = 0.6 oz pur e alcohol) Comments No Sex and Gender Information Value Date Recorded Sex Assigned at Not on file Legal Sex Female 12:38 AM CDT Gender Identity Not on file Sexual Orientation Not on file Last Filed Vital Signs Vital Sign Reading Time Taken Comments Blood Pressure 110/78 03/22/2021 3:32 PM CDT Pulse 84 03/22/2021 3:32 PM CDT Temperature 36.2 C (97.2 F) 03/22/2021 3:32 PM CDT Respiratory Rate 18 03/22/2021 3:32 PM CDT Oxygen Saturation 98% 03/22/2021 3:32 PM CDT Inhaled Oxygen Concentration - - Weight 72.4 kg (159 lb 11.2 oz) 03/22/2021 3:32 PM CDT Height 162.6 cm (5' 4 ) 03/22/2021 3:32 PM CDT Body Mass Index 27.41 03/22/2021 3:32 PM CDT Plan of Treatment Health Maintenance Due Date Last Done Comments Hepatitis C Virus (HCV) Screening 1993 Influenza Immunization (#1) 2024 04/03/2017 SARS-COV-2 Immunization ( season) 2024 Respiratory Syncytial Virus (RSV) Immunization (Adult) (1 - 1-dose 75+ series) 2068 Hepatitis B Immunization Completed 005, 07/03/2004, 12/11/1999 TdaP Immunization Completed 09/07/2008 DTaP/Tdap/Td Immunization Discontinued 2013, 09/07/2008, 12/11/1999, Additional history exists Meningococcal Immunization (ACWY) Aged Out No longer eligible based on patient's age to complete this topic Pneumococcal Immunization Combined Aged Out No longer eligible based on patient's age to complete this topic Rotavirus Immunization Aged Out No lo nger eligible based on patient's age to complete this topic Insurance [place] [address] MEDICAID [employer] Care Teams Lodge Attendant Relationship Specialty Start Date End Date Monisha Clinton MD [address] [place] [address] PCP - General Internal Medicine 06/03/19
--- OUTSIDE RECORDS SUMMARY | 2024-10-24 23:27 | XMS_ITS | Continuity of Care Document ---
Author Organization [facility] Address [address] [place] [address] Phone Care Team Providers Care Cotton Roll Packer Name Role Phone Dorene LONGITUDINAL FLOAT OPERATOR, Mary Anne Unavailable Unavailable Dorene LONGITUDINAL FLOAT OPERATOR, Mary nAne Unavailable Unavailable Allergies, Adverse Reactions, Alerts Substance Reaction Status Criticality ONDANSETRON HCL Active No Informati on Medications Medication Instructions Dosage Effective Dates (start - stop) Status Comments Vitamin D2 1,250 mcg (50,000 unit) capsule take 1 capsule by oral route every week [address]472 UNITS - Active acyclovir 400 mg tablet take 1 tablet by oral route every day - Active Procedures Procedure Date OFFICE/OUTPATIENT VISIT, EST OFFICE/OUTPATIENT VISIT, EST URINE TEST OFFICE/OUTPATIENT VISIT, EST Advance Directives Directive Yes / No Effective Date File Name No Information Encounters Encounter Description Practice Location Reason(s) For Visit Diagnoses Date Provider Providers Copied on Encounter [facility], [address] [place] [address], [address], tel:[phone] No Information [address] [place], [place], [place]. tel:[phone] Referring Provider: Mary Anne Catherine, [address] [place], [place]. tel:[phone] sulting Provider: Mary Anne Catherine, [address] [place], [place]. tel:[phone] OFFICE/OUTPA TIENT VISIT, EST [facility], [address] [place] [address], [address], [place] tel:[phone] *[facility] Swelling (chief complaint) Toothache (chief complaint) MEDICATION SAFE TO TAKE WHILE (chief complaint) , unspecified gestational agePeriodontal disease [address] [place]. [address] [place], . tel:[phone] [facility], [address] [place] [address], [address] [place] [address] tel:[phone] *[facility] Vitamin D deficiency [address] [place] Mary Anne. [address] [place]. [phone] OFFICE/OUTPA TIENT VISIT, [facility], [address] [place] [address], [address] [place] [address] tel:[phone] *[facility] Hair loss (chief complaint) Anxiety (chief complaint) Body mass index [BMI] 27.0-27.9, adultHair lossEngages in vapingAnxietyHistor y of herpes genitalisVaginal dischargeOn terminal worker drug therapy [address]. [address] [place] [phone] OFFICE/OUTPA TIENT VISIT, [facility], [address] [place] [address], [facility], tel:[phone] *[facility] LUMP UNDER LEFT BREAST (chief complaint) Unspecified lump in unspecified breastMass of left breast, unspecified quadrant [address]. [address] [place], [place], [place]. tel:[phone] Family History Family Member Type Diagnosis Age At Onset No Information Payers Payer name Insurance type Covered green party ID Authoriza tion(s) No Information Social [...] Date Complaint History Of Prese nt Illness MEDICATION SAFE TO T YONAS WHILE Toothache The symptoms beg an 2 weeks ago. The symptoms occur randomly. The location is BILATERAL. Swelling The swelling occ urred 2 weeks ago. AROUND JAWLINE, ONLY SWELLS WHE PT EATS OR DRINKS, PT STATES IT IS PAINFUL. Hair loss The patient pres ents with [...] skin sores, weight gain and weight loss. Anxiety This is an initi al visit. The patient presents with anxious/fearful thoughts, decreased need for sleep, difficulty concentrating, excessive worry, paranoia, poor judgment, racing thoughts and restlessness. The Anxiety is associated with irritability, sweating and trembling. The patient denies any chronic pain, headache, nausea, urinary frequency, vomiting and weight gain. LUMP UNDER LEFT BREAST PATIENT S TATES [...] hygiene importance discussed. Related to Periodontal disease Encouraged patient t o reduce calorie intake and increase daily activity. Educated patient that reducing body weight can assist in control of other chronic diseases. Related to Body mass index [BMI] 27.0-27.9, adult Labs as ordered. Javed vickers notify with results. Related to Vaginal discharge Lakhwinder-22-2023 States has tried sev eral meds in the past. Will order Genesight today and f/u with results to determine regimen. Related to Anxiety Dietary management e ducation, guidance, and counseling [...]
--- OUTSIDE RECORDS SUMMARY | 2024-10-24 23:27 | XMS_ITS | CONTINUITY OF CARE DOCUMENT ---
Author Name juan martinez Address Unknown Organization [facility] Address [address] [place] [address] Phone [phone] Care Team Providers Care Pressroom Supervisor Name Role Phone Brady Vides MD Unavailable STANISLAW BURNETT MD Unavailable STANISLAW BURNETT MD Unavailable [phone] PROBLEMS Condition Status Date Provider Notes Chest pain active Brady Vides MD Anxiety active Brady Vides MD Palpitations active Brady Vides MD Tobacco abuse active Brady Vides MD Pneumonia active Brady Vides MD SARS-associated coronavirus active Brady Vides MD ENCOUNTERS Date Type Provider Location Encounter Diag nosis - In-person encounter Office Visit Brady Vides MD [facility] - In-person encounter Office Visit Brady Vides MD [facility] Chest painAnxietyPalpitationsTobacco abusePneumoniaSARS-associated coronavirus VITAL SIGNS Date Observation Value Provider weight E&M 160 [lb_av] Cheo wharton Body Mass Index (Ratio) 33.59 kg/m2 Zeus Vides MD blood pressure, cuff size regular Ke rri Siria blood pressure, diastolic 70 mm[Hg] Ke rri Gruenenfelder blood pressure, systolic 142 mm[Hg] Janee ri Gruenenfelder oxygen saturation, oximetry 96 % Madelaine Grsonamnenfelder respiratory rate E&M 14 /min Madelaine G ruenenfelder pulse rate 76 /min Madelaine Robinsone lder weight E&M 172 [lb_av] Madelaine Grsonamnenfe lder height E&M 60 [in_i] Madelaine Robinsone lder Body Mass Index (Ratio) 31.83 kg/m2 Zeus Vides MD blood pressure, cuff size regular Ke rri Gruenenfelder blood pressure, diastolic 80 mm[Hg] Ke rri Gruenenfelder blood pressure, systolic 112 mm[Hg] Janee Martínezuenenfelder oxygen saturation, oximetry 98 % Madelaine Hinelowellelder respiratory rate E&M 14 /min Madelaine noelenenfelder pulse rate 66 /min Madelaine Bowerse lder weight E&M 163 [lb_av] Madelaine Perez lder height E&M 60 [in_i] Madelaine Perez [facility] ALLERGIES Allergy Name Onset Date Reaction Criticality Status ZOFRAN Low Criticality active RESULTS Date Observation Value Provider Reference Range Interpretation Location 0 magnesium, serum 2.0 mg/dL [facility] 1.6-2.3 0 free thyroxine index 2.2 [facility] 1.2-4.9 0 triiodothyronine resin uptake 26 % [facility] 24-39 0 thyroxine, serum, total 8.6 ug/dL [facility] 4.5-12.0 0 thyroid stimulating hormone, serum 0.781 u[IU]/mL [facility] 0.450-4.500 0 hemoglobin A1C, blood, as % of total hemoglobin 5.5 % [facility] 4.8-5.6 0 lipoprotein, beta, serum, point, quantitative, calculated 82 mg/dL [facility] 0-99 0 HDL cholesterol, serum 51 mg/dL [facility] >39 0 triglyceride, serum, random 69 mg/dL [facility] 0-149 0 cholesterol, serum 147 mg/dL [facility] 316-029 1987/10/3 0 basophil count, absolute 0.1 x10E3/uL [facility] 0.0-0.2 0 Eosinophil Absolute Count 0.3 X10E3/UL [facility] 0.0-0.4 0 monocyte count, blood, automated 0.9 X10E3/UL [facility] 0.1-0.9 0 lymphocyte count, blood, automated 2.7 X10E3/UL [facility] 0.7-3.1 0 Absolute Neutrophils 4.7 X10E3/UL [facility] 1.4-7.0 0 basophils as percent of blood leukocytes 1 % [facility] Not Estab. 0 eosinophils as percent of blood leukocytes 4 % [facility] Not Estab. 0 monocytes as percent of blood leukocytes 11 % [facility] Not Estab. 0 lymphocytes as percent of blood leukocytes 31 % [facility] Not Estab. 0 neutrophils as percent of blood leukocytes 53 % [facility] Not Estab. 0 platelet count 291 X10E3/UL [facility] 049-675 4861/10/3 0 red blood cell distribution width 12.2 % [facility] 11.7-15.4 0 mean corpuscular hemoglobin concentration, RBC 34.1 G/DL [facility] 31.5-35.7 0 mean corpuscular hemoglobin, RBC 34.4 pg [facility] 26.6-33.0 High 0 mean corpuscular volume, RBC 101 fL [facility] 79-97 High 0 hematocrit, blood 42.2 % [facility] 34.0-46.6 0 hemoglobin, blood 14.4 g/dL [facility] 11.1-15.9 0 erythrocyte (RBC) count 4.19 X10E6/UL [facility] 3.77-5.28 0 leukocyte count, blood 8.7 X10E3/UL [facility] 3.4-10.8 0 alanine aminotransferase (SGPT), serum 14 1/L [facility] 0-32 0 aspartate aminotransferase (SGOT), serum 15 1/L [facility] 0-40 0 alkaline phosphatase, serum 40 1/L [facility] 44-121 Low 0 bilirubin, serum, total 0.5 mg/dL [facility] 0.0-1.2 0 albumin/globulin ratio, serum 2.0 [facility] 1.2-2.2 0 globulin, serum 2.3 [facility] 1.5-4.5 0 albumin, serum 4.6 g/dL [facility] 3.9-5.0 0 protein, total, serum 6.9 g/dL [facility] 6.0-8.5 0 calcium, serum 9.6 mg/dL [facility] 8.7-10.2 0 carbon dioxide, venous blood 23 mmol/L [facility] 20-29 0 chloride, serum 103 mmol/L [facility] 96-106 0 potassium, serum 4.6 mmol/L [facility] 3.5-5.2 0 sodium, serum 140 mmol/L [facility] 427-700 5148/10/3 0 urea nitrogen/creatinine ratio, serum 14 [facility] 9-23 0 eGFR if 133 mL/min/{1 .73_m2} [facility] >59 0 eGFR if not 115 mL/min/{1 .73_m2} [facility] >59 0 creatinine, serum 0.72 mg/dL [facility] 0.57-1.00 0 urea nitrogen, blood 10 mg/dL [facility] 6-20 0 blood glucose, random 82 mg/dL [facility] 65-99 HISTORY OF MEDICATION USE Medication Status Instructions Dates Provider Indications Com ments Inderal LA 120 mg capsule,extended release 24 hr active Take 1 capsule by mouth once a day 5 Brady Vides MD Inderal LA 80 mg capsule,extended release 24 hr completed Take 1 capsule by mouth once a day instead of the the 3x daily inderal switch to the once a day inderal la 80mg daily 2 - 5 Brady Vides MD bupropion HCl 150 mg tablet extended release 24 hr active Brady Vides MD naproxen sodium 550 mg tablet active Brady Vides MD ibuprofen 800 mg tablet active Brady Vides MD azithromycin 250 mg tablet active Brady Vides MD propranolol 20 mg tablet completed - 2 Brady Vides MD acyclovir 800 mg tablet active Brady Vides MD tizanidine 4 mg tablet active Brady Vides MD SOCIAL HISTORY Date Observation Value Provider smoking/tobacco cess ation, patient education and counseling yes Brady Vides MD social history reviewed E&M revi ewed - no changes required Brady Vides MD social history E&M S moking History: P atient currently smokes every day. Brady Vides MD number of years as a smoker 15 a Madelaine Beverly smoking history, tot al pack/day 1/2 ppd Madelaine Beverly cigarette use yes Madelaine hardy smoking status Current every day smoker K erri Siria social history E&M S moking History: P rubens currently smokes every day. Brady Vides MD social history reviewed E&M revi ewed - no changes required Brady Vides MD number of years as a smoker 15 a Madelaine Martínezcynthiadarrel smoking history, tot al pack/day 1/2 ppd Madelaine Bowersmontsedarrel cigarette use yes Madelaine hardy smoking status Current every day smoker K errkaran Martínezelizabethlowellmontsedarrel INSURANCE PROVIDERS Payer name Policy type / Coverage type Trion red green party ID [facility] Blue [facility] [id number] ADVANCE DIRECTIVES Name Date DISCUSSED - NO DECISION MADE TREATMENT PLAN Date Name Performer [id number],C, n ever had covid, has not been vaccinated yet Brady Vides MD [id number],C, T he Patient was reencouraged to stop smoking. Brady Vides MD [id number],C, o n anxiety meds, may have anxiety panic attack which may have caused sxs Apparently had been held at [facility] Brady Vides MD [id number],C,W ill check stress test. reproducible chest pain w elevation of left arm. most likely suggest costochondritis. She works in a warehouse wrapping palettes intermittently. Will obtain exercise treadmill stress since she has family hx of CAD. Brady Vides MD [id number],S,s he had svt and isnu cam on tele increase inderall la to 120 daily she requires inderall for resting tremors otherwise may need to switch her to diltiazem Brady Vides MD [id number],C,ECHO REVIEWED WITH PT Brady Vides MD [id number],C,S WITCH TO INDERAL LA 80MG DAILY L ABS REVIEWED Brady Vides MD [id number],C,T he Patient was reencouraged to stop smoking. Brady Vides MD [id number],C,n ever had covid, has not been vaccinated yet Brady Vides MD [id number],B,a pparenlty had palps, feels irregular heart beat now and then, will arrange for tele monitor Brady Vides MD [id number],S,h ad pneumonia when she was in ER, was treated with antibiotiocs, chest pain could be related to post pneumonia issues. Brady Vides MD [id number],C,m ost likely anxiety related chest discomfort recommend tele monitor, along with stress test. Brady Vides MD [id number],S,o n anxiety meds, may have anxiety panic attack which may have caused sxs Brady Vides MD Cardiology: n ever had covid, has not been vaccinated yet Brady Vides MD Cardiology: T he Patient was reencouraged to stop smoking. Brady Vides MD Cardiology: o n anxiety meds, may have anxiety panic attack which may have caused sxs [facility] MD Cardiology:Will chec k stress test. reproducible chest pain w elevation of left arm. most likely suggest costochondritis. She works in a [employer] wrapping [employer] intermittently. Will obtain exercise treadmill stress since she has family hx of CAD. Brady Vides MD Cardiology:she had s vt and isnu cam on tele increase inderall la to 120 daily she requires inderall for resting tremors otherwise may need to switch her to diltiazem Brady Vides MD Telehealth:ECHO REVIEWED WITH PT Brady Vides MD Telehealth:SWITCH TO INDERAL LA 80MG DAILY L ABS REVIEWED Brady Vides MD Cardiology:The Patie nt was reencouraged to stop smoking. Brady Vides MD Cardiology:never had covid, has not been vaccinated yet Brady Vides MD Cardiology:apparenlt y had palps, feels irregular heart beat now and then, will arrange for tele monitor Brady Vides MD Cardiology:had pneum onia when she was in ER, was treated with antibiotiocs, chest pain could be related to post pneumonia issues. Brady Vides MD Cardiology:most like ly anxiety related chest discomfort recommend tele monitor, along with stress test. Brady Vides MD Cardiology:on anxiet y meds, may have anxiety panic attack which may have caused sxs Brady Vides MD Date Name Stress Routine MAGNESIUM CALCIUM CBC (INCLUDES DIFF/P LT) HEMOGLOBIN A1c TSH, free T4, total T3 LIPID PANEL COMPREHENSIVE METABO LIC PANEL, W/EGFR Monitor - Telemetry (Mobile Cardiac) Stress Routine DLCO - 09893 FRC - 66399 FVC - 30627 Complete Echo HISTORY OF PROCEDURES Procedure Date Procedure Name Provider Procedure Notes S tatus EKG Brady iVdes MD compl eted Event Monitor Brady Vides MD co mpleted
[2024-10-25] VITALS (25 sets, daily range): BP systolic 94–107; BP diastolic 54–77; PULSE 90; RESP 16; TEMP 36.6; O2SAT 94–100
[2024-10-25 00:46] LABS: Alanine Aminotransferase 19 U/L (6-35); Albumin Level 4.2 g/dL (3.5-5.1); Alkaline Phosphatase 51 U/L (38-126); Anion Gap 6 mmol/L (4-12); Aspartate Amino Transferase 23 U/L (14-36); Bilirubin,Total 0.3 mg/dL (0.2-1.3); Blood Urea Nitrogen 18 mg/dL (7-17); Calcium 9.2 mg/dL (8.4-10.2); Carbon Dioxide 29 mmol/L (22-30); Chloride 103 mmol/L (98-107); Estimated CRCL calculation 90 ml/min; Estimated Glomerular Filt Rate > 60; Glucose 88 mg/dL (65-110); Lipase 93 U/L (23-300); Potassium 3.9 mmol/L (3.4-5.0); Sodium 138 mmol/L (137-145)
[2024-10-25 01:16] LABS: Basophils Absolute Auto 0.1 K/mm3 (0.0-0.1); Basophils Percent Auto 0.7 % (0.2-1.2); Eosinophils Absolute Auto 0.5 K/mm3 (0-0.3); Eosinophils Percent Auto 4.8 % (0-4.4); Hematocrit 40.8 % (37.0-47.0); Hemoglobin 13.5 g/dL (12.0-15.0); Immature Granulocyte Absolute 0.02 K/mm3 (0.00-0.031); Immature Granulocyte Percent A 0.2 % (0-0.5); Lymphocytes Absolute Auto 3.74 K/mm3 (0.9-3.2); Lymphocytes Percent Auto 38.8 % (18.3-44.2); Mean Corpuscular HGB Conc 33.1 g/dl (32-36); Mean Corpuscular Hemoglobin 33.7 pg (26-34); Mean Corpuscular Volume 101.7 fl (80-100); Mean Platelet Volume 12.5 fl (7.4-10.4); Monocytes Absolute Auto 0.7 K/mm3 (0.1-0.6); Monocytes Percent Auto 7.5 % (2.6-8.5); Neutrophils Absolute Auto 4.6 K/mm3 (1.3-6.7); Platelet Count Result 249 k/mm3 (150-375); Red Blood Count 4.01 M/mm3 (4.2-5.4); Red Cell Distribution Width 13.2 % (11.5-14.5); White Blood Count 9.7 K/mm3 (4.5-10.0)
--- OUTSIDE RECORDS SUMMARY | 2024-10-25 01:26 | XMS_ITS | Encounter Summary ---
Author Organization [facility] Address [address] [facility] [place] [address] Phone Care Team Providers Care Operations Representative Name Role Phone Monisha Clinton MD Primary Care Provider Reason for Visit * Reason Comments Medication Refill Encounter Details Date Type Department Care Team (Late st Contact Info) Description 04/22/2021 Refill [facility] - Neurology [facility] [address] [place] [id number] Carlos Hernández MD [address] [place] [id number] Medication Refill Social History Tobacco Use Types [...] on filedocumented in this encounter Care Teams Operations Representative Relationship Specialty Start Date End Date Monisha Clinton MD [address] [place] [address] PCP - General Internal Medicine 06/03/19 documented as of this encounter
--- OUTSIDE RECORDS SUMMARY | 2024-10-25 01:26 | XMS_ITS | Clinical Summary ---
Author Organization [facility] Address [address] [place] [address] Care Team Providers Care Shoes Hand Sewer Name Role Phone Monisha Clinton MD Primary [...] complete this topic [place] [address] MEDICAID [employer] Care Teams Shoes Hand Sewer Relationship Specialty Start Date End Date Monisha Clinton MD [address] [place] [address] PCP - General Internal Medicine 06/03/19
--- OUTSIDE RECORDS SUMMARY | 2024-10-25 01:26 | XMS_ITS | CONTINUITY OF CARE DOCUMENT ---
Author Name juan martinez Address Unknown Organization [facility] Address [address] [place] [address] Phone [phone] Care Team Providers Care Ld Teacher Name Role Phone Brady Vides MD Unavailable STANISLAW BURNETT MD Unavailable STANISLAW BURNETT MD Unavailable PROBLEMS Condition Status Date Provider Notes Chest pain active Brady Vides MD Anxiety active Brady Vides MD Palpitations active Brady Vides MD Tobacco abuse active Brady Vides MD Pneumonia active Brady Vides MD SARS-associated coronavirus active Brady Vides MD ENCOUNTERS Date Type Provider Location Encounter Diag nosis - In-person encounter Office Visit Brady Vieds MD [facility] - In-person encounter Office Visit Brady Vides MD [facility] Chest painAnxietyPalpitationsTobacco abusePneumoniaSARS-associated coronavirus VITAL SIGNS [...] lder height E&M 60 [in_i] Madelaine Perez [facility] ALLERGIES Allergy Name Onset Date Reaction Criticality [...] 0-149 0 cholesterol, serum 147 mg/dL [facility] 865-837 9870/10/3 0 basophil count, absolute 0.1 x10E3/uL [facility] [...] Estab. 0 platelet count 291 X10E3/UL [facility] 619-885 5120/10/3 0 red blood cell distribution width 12.2 [...] 3.5-5.2 0 sodium, serum 140 mmol/L [facility] 735-432 9649/10/3 0 urea nitrogen/creatinine ratio, serum 14 [facility] [...] by mouth once a day 5 Brady Vieds MD Inderal LA 80 mg capsule,extended release [...] Payer name Policy type / Coverage type Danese red constitution party ID [facility] Blue [facility] [id number] ADVANCE DIRECTIVES Name Date DISCUSSED - NO DECISION MADE TREATMENT PLAN Date Name Performer [id number],C, n ever had covid, has not been vaccinated yet Brady Vides MD [id number],C, T he Patient was reencouraged to stop smoking. Brady Vides MD [id number],C, o n anxiety meds, may have anxiety panic attack which may have caused sxs Apparently had been [facility] at [facility] Brady Vides MD [id number],C,W ill check stress test. reproducible chest pain w elevation of left arm. most likely suggest costochondritis. She works in a warehouse wrapping palettes intermittently. Will obtain exercise treadmill stress since she has family hx of CAD. Brady Vides MD [id number],S,s he had svt and isnu cam on tele increase inderall la to 120 daily she requires inderall for resting tremors otherwise may need to switch her to diltiazem Brady Vides MD [id number],C,ECHO REVIEWED WITH PT Brady Vides MD [id number],C,S WITCH TO INDERAL LA 80MG DAILY L ABS REVIEWED Brady Vides MD [id number],C,T he Patient was reencouraged to stop smoking. Brady Vides MD [id number],C,n ever had covid, has not been vaccinated yet Brady Vides MD [id number],B,a pparenlty had palps, feels irregular heart beat now and then, will arrange for tele monitor Brady Vides MD [id number],S,h ad pneumonia when she was in ER, was treated with antibiotiocs, chest pain could be related to post pneumonia issues. Brady Vides MD [id number],C,m ost likely anxiety related chest discomfort recommend tele monitor, along with stress test. Brady Vides MD [id number],S,o n anxiety meds, may have anxiety panic attack which may have caused sxs Brady Vides MD Cardiology: n ever had covid, has not been vaccinated yet Brady Vides MD Cardiology: T he Patient was reencouraged to stop smoking. Brady Vides MD Cardiology: o n anxiety meds, may have anxiety panic attack which may have caused sxs Apparently [facility] Brady Vides MD Cardiology:Will chec k stress test. reproducible chest pain w elevation of left arm. most likely suggest costochondritis. She works in a [employer] wrapping [employer] intermittently. Will obtain exercise treadmill stress since [...] Telemetry (Mobile Cardiac) Stress Routine DLCO - 22969 FRC - 46141 FVC - 55571 Complete Echo HISTORY OF PROCEDURES Procedure Date Procedure Name Provider Procedure Notes S tatus EKG Brady Vides MD compl eted Event Monitor Brady Vides MD co mpleted
--- OUTSIDE RECORDS SUMMARY | 2024-10-25 01:26 | XMS_ITS | Continuity of Care Document ---
Author Organization [facility] Address [address] [place] [address] Phone Care Team Providers Care Liaison Engineer Name Role Phone Dorene ORACLE WMS CONSULTANT, Mary Anne Unavailable Unavailable Dorene ORACLE WMS CONSULTANT, Mary Anne Unavailable Unavailable Allergies, Adverse Reactions, Alerts Substance Reaction Status Criticality ONDANSETRON HCL Active No Informati on Medications Medication Instructions Dosage Effective Dates (start - stop) Status Comments Vitamin D2 1,250 mcg (50,000 unit) capsule take 1 capsule by oral route every week 11424 UNITS - Active acyclovir 400 mg tablet take 1 tablet by oral route every day - Active Procedures Procedure Date OFFICE/OUTPATIENT VISIT, EST OFFICE/OUTPATIENT VISIT, EST URINE TEST OFFICE/OUTPATIENT VISIT, EST Advance Directives Directive Yes / No Effective Date File Name No Information Encounters Encounter Description Practice Location Reason(s) For Visit Diagnoses Date Provider Providers Copied on Encounter [facility], [address] [place] [address], [address], tel:[phone] No Information [address] [place], [place], [place]. tel:[phone] Referring Provider: Mary Anne Catherine, [address] [place], [place]. tel:[phone] sulting Provider: Mary Anne Catherine, [address] [place], [place]. tel:[phone] OFFICE/OUTPA TIENT VISIT, EST [facility], [address] [place] [address], [address], tel:[phone] *[facility] Swelling (chief complaint) Toothache (chief complaint) MEDICATION SAFE TO TAKE WHILE (chief complaint) , unspecified gestational agePeriodontal disease [address]. [address] [place], [place] tel:[phone] [facility], [address] [place] [address], [address] [place] [address] tel:[phone] *[facility] Vitamin D deficiency [address] Mary Anne. [address] [place] [phone] OFFICE/OUTPA TIENT VISIT, [facility], [address] [place] [address], [address] [place] [address] tel:[phone] *[facility] Hair loss (chief complaint) Anxiety (chief complaint) Body mass index [BMI] 27.0-27.9, adultHair lossEngages in vapingAnxietyHistor y of herpes genitalisVaginal dischargeOn intermediate card tender drug therapy [address] [place] [phone] OFFICE/OUTPA TIENT VISIT, [facility], [address] [place] [address], Critical access hospital, tel:[phone] *[facility] Urgent Care LUMP UNDER LEFT BREAST (chief complaint) Unspecified lump in unspecified breastMass of left breast, unspecified quadrant [address] [place], [place], [place]. tel:[phone] Family History Family Member Type Diagnosis Age At Onset No Information Payers Payer name Insurance type Covered alliance party ID Authoriza tion(s) No Information Social [...]
--- OUTSIDE RECORDS SUMMARY | 2024-10-25 01:26 | XMS_ITS | Referral Summary ---
Author Organization [facility] Address [address] [place] [address] Phone Care Team Providers Care Hydraulic Specialist Name Role Phone Victor Manuel Garcia MD [...] 5 x daily. Some cramping is reported. GL[employer]UTTER [employer] referral today. Bipolar affective 10/07/2017 Assessment & [...] & Plan (10/20/2017 10:17 PM CDT): 10/17/17 [facility] ER visit. UA 26-50 WBC, RBC 3-5. [...] on file Legal Sex Female 11:14 PM CIRCUIT BREAKER ASSEMBLER Gender Identity Not on file Sexual Orientation Not on file Occupation Industry Job Start Date Job End Date unemployed Not on file Not on file Not on file Last Filed Vital Signs Vital Sign Reading Time Taken Comments Blood Pressure 138/71 07/30/2022 4:32 PM CIRCUIT BREAKER ASSEMBLER Pulse 85 07/30/2022 4:32 PM CIRCUIT BREAKER ASSEMBLER Temperature 36.8 C (98.3 F) 07/30/2022 4:32 PM CIRCUIT BREAKER ASSEMBLER Respiratory Rate 16 07/30/2022 4:32 PM CIRCUIT BREAKER ASSEMBLER Oxygen Saturation 100% 07/30/2022 4:32 PM CIRCUIT BREAKER ASSEMBLER Inhaled Oxygen Concentration - - Weight 71.7 kg (158 lb) 07/30/2022 4:32 PM CIRCUIT BREAKER ASSEMBLER Height 162.6 cm (5' 4 ) 07/30/2022 4:32 PM CIRCUIT BREAKER ASSEMBLER Body Mass Index 27.12 07/30/2022 4:32 PM CIRCUIT BREAKER ASSEMBLER Plan of Treatment Not on file Procedures Procedure Name Priority Date/Time Associated Diagnosis Comments PAP SMEAR WITH HPV Routine 09/08/2017 from Last 3 Months or Most Recently Relevant to Health Maintenance Results * PAP SMEAR WITH HPV (09/08/2017) HM Pap smear Normal Historical Provider MD HEALTH MAINTENANCE Final Result from Last 3 Months or Most Recently Relevant to Health Maintenance Insurance [employer] Care Teams Hydraulic Specialist Relationship Specialty Start Date End Date Victor Manuel Garcia MD [address] [facility] [address] [place] [address] PCP - General 10/15/17
--- OUTSIDE RECORDS SUMMARY | 2024-10-25 01:26 | XMS_ITS | Clinical Summary ---
Author Organization [facility] Address [address] [place] [address] Phone Care Team Providers Care Cost Clerk Name Role Phone Victor Manuel Garcia MD [...] 5 x daily. Some cramping is reported. MOISTURE MACHINE TENDER referral today. Bipolar affective 10/07/2017 Assessment & [...] & Plan (10/20/2017 10:17 PM CDT): 10/17/17 [facility] ER visit. UA 26-50 WBC, [...] on file Legal Sex Female 11:14 PM CRYPTOLOGIST Gender Identity Not on file Sexual Orientation [...] Comments Blood Pressure 138/71 07/30/2022 4:32 PM CRYPTOLOGIST Pulse 85 07/30/2022 4:32 PM CRYPTOLOGIST Temperature 36.8 C (98.3 F) 07/30/2022 4:32 PM CRYPTOLOGIST Respiratory Rate 16 07/30/2022 4:32 PM CRYPTOLOGIST Oxygen Saturation 100% 07/30/2022 4:32 PM CRYPTOLOGIST Inhaled Oxygen Concentration - - Weight 71.7 kg (158 lb) 07/30/2022 4:32 PM CRYPTOLOGIST Height 162.6 cm (5' 4 ) 07/30/2022 4:32 PM CRYPTOLOGIST Body Mass Index 27.12 07/30/2022 4:32 PM CRYPTOLOGIST Plan of Treatment Health Maintenance Due Date [...] Most Recently Relevant to Health Maintenance Insurance [facility] [place] [address] [place] [address] [place] [place] [address] DIVISION Member Subscriber Plan / Payer (Ef fective 2021-Present) Name:Kellie Garrido Relation to Subscriber:Self Name:Kellie Garrido Payer ID:[id number] Group ID:Not on file Type:MEDICAID [place] Address: [address] HEALTH PLAN Care Teams Cost Clerk Relationship Specialty Start Date End Date Victor Manuel Garcia MD [address] [facility] [address] [place] [address] PCP - General 10/15/17
--- OUTSIDE RECORDS SUMMARY | 2024-10-25 01:26 | XMS_ITS | Encounter Summary ---
Author Organization [facility] Address [address] [place] [address] Phone Care Team Providers Care Inspecting Supervisor Name Role Phone Monisha Clinton MD Primary Care Provider Reason for Visit * Reason Comments Medication Refill Encounter Details Date Type Department Care Team (Late st Contact Info) Description 06/04/[address] [facility] - Neurology [facility] [address] [place] [phone] Carlos Hernández MD [address] [place] [id number] Medication Refill Social History Tobacco Use Types [...] on filedocumented in this encounter Care Teams Inspecting Supervisor Relationship Specialty Start Date End Date Monisha Clinton MD [address] [place] [address] PCP - General Internal Medicine 06/03/19 documented as of this encounter
[2024-10-25] MEDS: MORPHINE SULFATE (*CRX) 2 MG/ML INJ IV PUSH (02:09)
[2024-10-25 02:40] LABS: BEDSIDEPREGUCG Negative (Negative)
--- NOTE | 2024-10-25 02:40 | ED.ABDPAIN ---
HPI - Abdominal Pain General Chief Complaint: Abdominal Pain Stated Complaint: abd pain, large intestine bleed Time Seen by Provider: 10/25/24 01:15 History of Present Illness HPI narrative: Patient had been seen at outside hospital recently and diagnosed with colitis and started her on antibiotics, she is here because she feels like the pain feels different, unable to describe how it is different. Related Data Home Medications ?Medication ?Instructions ?Recorded ?Confirmed ?Last Taken ?Type acyclovir 400 mg tablet 400 mg PO DAILY 02/18/23 02/18/23 02/17/23 12:00 History aripiprazole 10 mg tablet 10 mg PO DAILY 02/18/23 02/18/23 02/17/23 12:00 History cholecalciferol (vitamin D3) 1,250 50,000 unit PO WEEKLY 02/18/23 02/18/23 02/17/23 12:00 History mcg (50,000 unit) capsule metoclopramide HCl 10 mg tablet 10 mg PO DAILY 02/18/23 02/18/23 02/17/23 12:00 History (Reglan) vit no.95-ferrous 1 tablet PO DAILY 02/18/23 02/18/23 02/17/23 12:00 History fumarate 28 mg-folic acid 800 mcg tablet () Allergies Allergy/AdvReac Type Severity Reaction Status Date / Time ondansetron Allergy Mild Rash Verified 05/15/24 09:00 Review of Systems Review of Systems: All systems reviewed & are unremarkable except as noted in HPI and below PMFSH Past Medical History Medical History Bipolar 1 disorder History of bipolar disorder (normal spontaneous vaginal delivery) x 2 at term Surgical History Surgical History History of D&C for SAB Social History Social History Smoking status: Current every day smoker Tobacco type: cigarettes Second hand tobacco smoke exposure: Yes Alcohol intake: never Substance use: current Substance use type: marijuana Lack of Transportation: No Lack of Food: Never True Current Housing: I Have Housing Concerned About Future Housing: No Difficulty Paying Gas/Electric Bills: No Difficulty Paying for Meds: No Currently Unemployed: No Education: Don't Know Difficulty w/ Childcare or Family Care: No Spiritual care concerns: No Exam Narrative: EXAMINATION OF ORGAN SYSTEMS/BODY AREAS: Constitutional: Vital signs per nursing GENERAL:[No acute distress, non-toxic appearing.] HEAD: Normal with no signs of head trauma. EYES: EOMI, conjunctiva normal ENT: Hearing grossly intact LUNGS: Nonlabored breathing. HEART: [Regular rate and rhythm] ABD: [Soft], [nontender to palpation] EXT: Normal range of motion SKIN: [No rashes or lesions.] NEURO: [Alert and oriented x 3. No gross focal sensory or strength deficits.] PSYCH: Normal affect Course Vital Signs Vital signs: Vital Signs Temperature 97.8 F 10/24/24 23: Pulse Rate 84 10/24/24 23: Respiratory Rate 18 10/24/24 23: Blood Pressure 124/75 10/24/24 23:25 Pulse Oximetry 100 10/24/24 23:25 Oxygen Delivery Room Air 10/24/24 23:25 Temperature 97.8 F 10/24/24 23:25 Pulse Rate 84 10/24/24 23:25 Respiratory Rate 18 10/24/24 23:25 Blood Pressure 96/66 L 10/25/24 03:46 Pulse Oximetry 96 10/25/24 03:46 Oxygen Delivery Room Air 10/24/24 23:25 MDM - Abdominal Pain MDM Narrative Medical decision making narrative: Electronic medical record was reviewed. Patient presented to the ED with complaint of [abdominal pain]. Vitals [were within acceptable limits]. Physical exam revealed well-appearing patient who is sleeping comfortably, abdomen soft nontender. Based on the patient's history and physical exam, my differential includes but is not limited to [gastritis, gastroenteritis, colitis]. [IV access was established by nursing staff. Patient was given IV morphine]. Patient declined rectal exam so I am unable to assess for lower GI bleed. CBC, BMP, lipase, LFTs, bilirubin and alk phos were obtained. Labs were pertinent for essentially normal labs including normal urinalysis. [Decision was made to obtain a CT-abdomen to evaluate for acute abdominal process. CT-abdomen per radiology interpretation is unremarkable for acute intra-abdominal process, no signs of hydronephrosis, cholecystitis, appendicitis.] On reevaluation, the patient states that they are feeling fine. There were no witnessed episodes of vomiting in the emergency department. They are not complaining of any new abdominal pain. Repeat examination did not show any significant guarding or rebound. No new tenderness. At this time I do not feel there is any further emergent treatment to be provided. The patient was given strict return precautions, if they are to develop any worsening abdominal pain, vomiting, or blood in the vomit or blood in her stool they are to return to the emergency department immediately. Patient verbally acknowledges understanding these directions. [The patient was informed of the above diagnostic test findings.] They will be discharged home [with prescriptions for abdominal pain and she still has antibiotic prescription for outside hospital]. They were advised to follow-up with GI in 2 days. The patient feels that this is appropriate medical decision making and verbalizes an understanding of the discharge instructions. Lab Data 10/25/24 00:14 10/25/24 00:14 Labs: Lab Results 10/25/24 10/25/24 10/25/24 Range/Units 00:14 02:39 03:51 WBC 9.7 (4.5-10.0) K/mm3 RBC 4.01 L (4.2-5.4) M/mm3 Hgb 13.5 (12.0-15.0) g/dL Hct 40.8 (37.0-47.0) % MCV 101.7 H (80-100) fl MCH 33.7 (26-34) pg MCHC 33.1 (32-36) g/dl RDW 13.2 (11.5-14.5) % Plt Count 249 (150-375) k/mm3 MPV 12.5 H (7.4-10.4) fl Immature Gran % (Auto) 0.2 (0-0.5) % Neut % (Auto) 48.0 (45.5-73.1) % Lymph % (Auto) 38.8 (18.3-44.2) % [place] % (Auto) 7.5 (2.6-8.5) % Eos % (Auto) 4.8 H (0-4.4) % Baso % (Auto) 0.7 (0.2-1.2) % Lymph # (Auto) 3.74 H (0.9-3.2) K/mm3 [place] # (Auto) 0.7 H (0.1-0.6) K/mm3 Eos # (Auto) 0.5 H (0-0.3) K/mm3 Baso # (Auto) 0.1 (0.0-0.1) K/mm3 Abs Immat Gran (auto) 0.02 (0.00-0.031) K/mm3 Absolute Neuts (auto) 4.6 (1.3-6.7) K/mm3 Absolute Nucleated RBC 0.000 (0.0-0.012) K/mm3 Nucleated RBC % 0.0 (0.0-0.2) % Sodium 138 (137-145) mmol/L Potassium 3.9 (3.4-5.0) mmol/L Chloride 103 (98-107) mmol/L Carbon Dioxide 29 (22-30) mmol/L Anion Gap 6 (4-12) mmol/L BUN 18 H (7-17) mg/dL Creatinine 0.83 (0.7-1.0) mg/dL Estim Creat Clear Calc 90 ml/min Estimated GFR > 60 (59 - ) Glucose 88 (65-110) mg/dL Calcium 9.2 (8.4-10.2) mg/dL Total Bilirubin 0.3 (0.2-1.3) mg/dL AST 23 (14-36) U/L ALT 19 (6-35) U/L Alkaline Phosphatase 51 (38-126) U/L Total Protein 7.0 (6.3-8.2) g/dL Albumin 4.2 (3.5-5.1) g/dL Lipase 93 (23-300) U/L Urine Color Yellow (Yellow) Urine Appearance Cloudy H (Clear) Urine pH 7.0 (5.0-9.0) Ur Specific [place] 1.012 (1.001-1.035) Urine Protein Negative (Negative) mg/dL Urine Glucose (UA) Negative (Negative) mg/dL Urine Ketones Negative (Negative) mg/dL Ur Blood (Man) Negative (Negative) Urine Nitrate Negative (Negative) Urine Bilirubin Negative (Negative) Urine Urobilinogen 0.2 (<2.0) mg/dL Leukocyte Esterase Rfl Negative (Negative) GALINA/UL Urine RBC 0-2 (0-2) /hpf Urine WBC 0-5 (0-3) /hpf Ur Squamous Epith Cells None seen (Few) /hpf Urine Bacteria None seen /hpf Urine Casts 0-2 POC Urine HCG, Qual Negative (Negative) Discharge Plan Discharge Clinical Impression: Abdominal pain Patient Disposition: Home Condition: Stable Instructions: Abdominal Pain (ED) Additional Instructions: Please follow-up with your GI doctor, you can continue the antibiotics your prescribed, you can always return to the hospital for any further issues. Patient Language: Wolof Prescriptions: New dicyclomine 20 mg tablet 20 mg PO TID PRN (Reason: abdominal pain) Qty: 30 0RF No Action sulfamethoxazole-trimethoprim [Bactrim DS] 800-160 mg tablet 1 tablet PO Q12H Qty: 14 0RF benzonatate 200 mg capsule 200 mg PO TID PRN (Reason: cough) Qty: 30 0RF azithromycin 250 mg tablet See Rx Instructions .ROUTE .COMPLEX Qty: 6 0RF Rx Instructions: For 250 mg dose pack: take 500 mg today (day 1), then 250 mg for 4 days (days 2-5) promethazine 12.5 mg tablet 12.5 mg PO TID Qty: 14 0RF acyclovir 400 mg tablet 400 mg PO DAILY metoclopramide HCl [Reglan] 10 mg Tablet 10 mg PO DAILY aripiprazole 10 mg tablet 10 mg PO DAILY cholecalciferol (vitamin D3) 1,250 mcg (50,000 unit) capsule 50,000 unit PO WEEKLY PNV cmb#95-ferrous fumarate-FA [] 28 mg iron- 800 mcg Tablet 1 tablet PO DAILY hydrocodone-acetaminophen 5-325 mg tablet 1 tablet PO Q6H PRN (Reason: pain) Qty: 28 0RF ibuprofen 600 mg tablet 600 mg PO Q6H PRN (Reason: pain) Qty: 30 0RF Follow-up/Referrals: Jermaine,ILANA Delaney [Primary Care Provider] -
[2024-10-25 04:03] LABS: Add Urine Microscopic? YES; Appearance Urine Cloudy (Clear); Bacteria Urine None Seen /hpf; Bilirubin Urine Negative (Negative); Blood Urine Negative (Negative); Color Urine Yellow (Yellow); Glucose Urine UA Negative (Negative); Ketones Urine Negative (Negative); Leukocyte Esterase Ur Negative LEU/UL (Negative); Nitrate Urine Negative (Negative); Non Pathogenic Casts 0-2; Protein Urine Negative (Negative); RBC Urine 0-2 /hpf (0-2); Specific Grav Ur 1.012 (1.001-1.035); Squamous Epithelial Cell Urine None Seen /hpf (Few); Urobilinogen Urine 0.2 mg/dL (<2.0); WBC Urine 0-5 /hpf (0-3)
== END 2024-10-25 04:36 | disposition home or self-care (01) ==
PROVIDERS: Emergency Provider Emergency Medicine; PCP Physician Assistant Medical
DX: R10.9 Unspecified abdominal pain (principal); F31.9 Bipolar disorder, unspecified; F17.210 Nicotine dependence, cigarettes, uncomplicated; Z79.899 Other long term (current) drug therapy
CPT/HCPCS: 36415; 74177; 80053; 81001; 81025; 83690; 85025; 96374; 99284; J2270; Q9967

== ENCOUNTER 2024-11-03 10:33 | Emergency (ER) | payer BC, SELFPAY ==
--- NOTE | ~2024-11-03 | XR_ITS ---
XR ankle LT min 3V, XR foot LT min 3V 11/03/2024 11:12 (accession [id number]), 11/03/2024 11:13 (accession [id number]) INDICATION: Left ankle pain after fall PROCEDURE: 4 views left ankle and 4 views left foot COMPARISON: No prior studies for comparison. FINDINGS: Fracture, dislocation or subluxation is not identified. The soft tissues appear within norm al limits. No foreign bodies are identified. IMPRESSION: 1: NO ACUTE BONE OR JOINT ABNORMALITY IDENTIFIED. Reviewed, dictated and finalized at location A. IMPRESSION: 1: NO ACUTE BONE OR JOINT ABNORMALITY IDENTIFIED.
[2024-11-03 10:37] VITALS: BP 124/58; PULSE 87; RESP 16; TEMP 36.4; O2SAT 100
--- OUTSIDE RECORDS SUMMARY | 2024-11-03 10:41 | XMS_ITS | Referral Summary ---
Author Organization [facility] Address [address] [place] [address] Phone Care Team Providers Care Aquatic Centre Manager Name Role Phone Victor Manuel Garcia MD [...] 5 x daily. Some cramping is reported. CLERICAL AIDE TEACHER referral today. Bipolar affective 10/07/2017 Assessment & [...] & Plan (10/20/2017 10:17 PM CDT): 10/17/17 [facility] ER visit. UA 26-50 WBC, RBC [...] on file Legal Sex Female 11:14 PM SENIOR STACK ENGINEER Gender Identity Not on file Sexual Orientation Not on file Occupation Industry Job Start Date Job End Date unemployed Not on file Not on file Not on file Last Filed Vital Signs Vital Sign Reading Time Taken Comments Blood Pressure 138/71 07/30/2022 4:32 PM SENIOR STACK ENGINEER Pulse 85 07/30/2022 4:32 PM SENIOR STACK ENGINEER Temperature 36.8 C (98.3 F) 07/30/2022 4:32 PM SENIOR STACK ENGINEER Respiratory Rate 16 07/30/2022 4:32 PM SENIOR STACK ENGINEER Oxygen Saturation 100% 07/30/2022 4:32 PM SENIOR STACK ENGINEER Inhaled Oxygen Concentration - - Weight 71.7 kg (158 lb) 07/30/2022 4:32 PM SENIOR STACK ENGINEER Height 162.6 cm (5' 4 ) 07/30/2022 4:32 PM SENIOR STACK ENGINEER Body Mass Index 27.12 07/30/2022 4:32 PM SENIOR STACK ENGINEER Plan of Treatment Not on file Procedures Procedure Name Priority Date/Time Associated Diagnosis Comments PAP SMEAR WITH HPV Routine 09/08/2017 from Last 3 Months or Most Recently Relevant to Health Maintenance Results * PAP SMEAR WITH HPV (09/08/2017) HM Pap smear Normal Historical Provider MD HEALTH MAINTENANCE Final Result from Last 3 Months or Most Recently Relevant to Health Maintenance Insurance [place] [employer] [facility] Care Teams Aquatic Centre Manager Relationship Specialty Start Date End Date Victor Manuel Garcia MD [address] [facility] [facility] [address] [place] [address] PCP - General 10/15/17
--- OUTSIDE RECORDS SUMMARY | 2024-11-03 10:41 | XMS_ITS | Encounter Summary ---
Author Organization [facility] Address [address] [place] [address] Phone Care Team Providers Care Math Tutor Name Role Phone Monisha Clinton MD Primary Care Provider Reason for Visit * Reason Comments Medication Refill Encounter Details Date Type Department Care Team (Late st Contact Info) Description 04/22/2021 Refill [facility] - Neurology [facility] [address] [place] [phone] Carlos Hernández MD [address] [place] [phone] Medication Refill Social History Tobacco Use Types [...] on filedocumented in this encounter Care Teams Math Tutor Relationship Specialty Start Date End Date Monisha Clinton MD [address] [place] [address] PCP - General Internal Medicine 06/03/19 documented as of this encounter
--- OUTSIDE RECORDS SUMMARY | 2024-11-03 10:41 | XMS_ITS | Continuity of Care Document ---
Author Organization [facility] Address [address] [place] [address] Phone Care Team Providers Care Metalizing Machine Operator Name Role Phone Dorene RECRUITMENT COORDINATOR, Mary Anne Unavailable Unavailable Dorene RECRUITMENT COORDINATOR, Mary Anne Unavailable Unavailable Allergies, Adverse Reactions, Alerts Substance Reaction Status Criticality ONDANSETRON HCL Active No Informati on Medications Medication Instructions Dosage Effective Dates (start - stop) Status Comments Vitamin D2 1,250 mcg (50,000 unit) capsule take 1 capsule by oral route every week [address]7768 UNITS - Active acyclovir 400 mg tablet take 1 tablet by oral route every day - Active Procedures Procedure Date OFFICE/OUTPATIENT VISIT, EST OFFICE/OUTPATIENT VISIT, EST URINE TEST OFFICE/OUTPATIENT VISIT, EST Advance Directives Directive Yes / No Effective Date File Name No Information Encounters Encounter Description Practice Location Reason(s) For Visit Diagnoses Date Provider Providers Copied on Encounter [facility], [address] [place] [address], [address], tel:[phone] No Information [address] [place], [place], [place]. tel:[phone] Referring Provider: Mary Anne Catherine, [address] [place], [place]. tel:[phone] sulting Provider: Mary Anne Catherine, [address] [place], [place]. tel:[phone] OFFICE/OUTPA TIENT VISIT, EST [facility], [address] [place] [address], [address], tel:[phone] *[facility] Swelling (chief complaint) Toothache (chief complaint) MEDICATION SAFE TO TAKE WHILE (chief complaint) , unspecified gestational agePeriodontal disease [address] [place]. [address] [place], . tel:[phone] [facility], [address] [place] [address], [address] [place] [address] tel:[phone] *[facility] Vitamin D deficiency [address] [place] Mary Anne. [address] [place] [phone] OFFICE/OUTPA TIENT VISIT, [facility], [address] [place] [address], [address] [place] [address] tel:[phone] *[facility] Hair loss (chief complaint) Anxiety (chief complaint) Body mass index [BMI] 27.0-27.9, adultHair lossEngages in vapingAnxietyHistor y of herpes genitalisVaginal dischargeOn terminal worker drug therapy [address]. [address] [place] [phone] OFFICE/OUTPA TIENT VISIT, [facility], [address] [place] [address], [facility], tel:[phone] *[facility] Ur[facility] Care LUMP UNDER LEFT BREAST (chief complaint) Unspecified lump in unspecified breastMass of left breast, unspecified quadrant [address]. [address] [place], [place], [place]. tel:[phone] Family History Family Member Type Diagnosis Age At Onset No Information Payers Payer name Insurance type Covered libertarian ID Authoriza tion(s) No Information Social History [...] hygiene importance discussed. Related to Periodontal disease Labs as ordered. Javed vickers notify with results. Related to Vaginal discharge States has tried sev eral meds in the past. Will order Genesight today and f/u with results to determine regimen. Related to Anxiety Encouraged patient t o reduce calorie intake [...]
--- OUTSIDE RECORDS SUMMARY | 2024-11-03 10:41 | XMS_ITS | Clinical Summary ---
Author Organization [facility] Address [address] [place] [address] Phone Care Team Providers Care Auto Air Conditioning Apprentice Name Role Phone Victor Manuel Garcia MD [...] 5 x daily. Some cramping is reported. PRINT FINISHER referral today. Bipolar affective 10/07/2017 Assessment & [...] & Plan (10/20/2017 10:17 PM CDT): [facility] UA 26-50 WBC, [...] on file Legal Sex Female 11:14 PM SSAS DEVELOPER Gender Identity Not on file Sexual Orientation [...] Comments Blood Pressure 138/71 07/30/2022 4:32 PM SSAS DEVELOPER Pulse 85 07/30/2022 4:32 PM SSAS DEVELOPER Temperature 36.8 C (98.3 F) 07/30/2022 4:32 PM SSAS DEVELOPER Respiratory Rate 16 07/30/2022 4:32 PM SSAS DEVELOPER Oxygen Saturation 100% 07/30/2022 4:32 PM SSAS DEVELOPER Inhaled Oxygen Concentration - - Weight 71.7 kg (158 lb) 07/30/2022 4:32 PM SSAS DEVELOPER Height 162.6 cm (5' 4 ) 07/30/2022 4:32 PM SSAS DEVELOPER Body Mass Index 27.12 07/30/2022 4:32 PM SSAS DEVELOPER Plan of Treatment Health Maintenance Due Date [...] Most Recently Relevant to Health Maintenance Insurance [place] [facility] [place] [address] [place] [address] [place] [address] [place] [address] DIVISION Member Subscriber Plan / Payer (Ef fective 2021-Present) Name:Kellie Garrido Relation to Subscriber:Self Name:Kellie Garrido Payer ID:[id number] Group ID:Not on file Type:MEDICAID [place] Address: [address] HEALTH PLAN Care Teams Auto Air Conditioning Apprentice Relationship Specialty Start Date End Date Victor Manuel Garcia MD [address] [facility] [address] [place] [address] PCP - General 10/15/17
--- OUTSIDE RECORDS SUMMARY | 2024-11-03 10:42 | XMS_ITS | Encounter Summary ---
Author Organization [facility] Address [address] [facility] [place] [address] Phone Care Team Providers Care Microphone Operator Name Role Phone Monisha Clinton MD Primary Care Provider Reason for Visit * Reason Comments Medication Refill Encounter Details Date Type Department Care Team (Late st Contact Info) Description 06/04/2021 Refill [facility] - Neurology [facility] [address] [place] [phone] Carlos Hernández MD [address] [place] [phone] Medication Refill Social History Tobacco Use Types [...] on filedocumented in this encounter Care Teams Microphone Operator Relationship Specialty Start Date End Date Monisha Clinton MD [address] [place] [address] PCP - General Internal Medicine 06/03/19 documented as of this encounter
--- OUTSIDE RECORDS SUMMARY | 2024-11-03 10:42 | XMS_ITS | Clinical Summary ---
Author Organization [facility] Address [address] [place] [address] Care Team Providers Care Wood Gang Sawyer Name Role Phone Monisha Clinton MD Primary [...] complete this topic [place] [address] MEDICAID [employer] Care Teams Wood Gang Sawyer Relationship Specialty Start Date End Date Monisha Clinton MD [address] [place] [address] PCP - General Internal Medicine 06/03/19
--- OUTSIDE RECORDS SUMMARY | 2024-11-03 11:21 | XMS_ITS | Data Portability ---
Author Organization [place] [facility] [employer], Main Office Address [address] [place] [address] Care Team Providers Care Hand Patcher Name Role Phone JENNIFER AMBROSIO Primary Care Provider Assessment No assessment recorded. Plan of Treatment Reminders Order Date Submit Date Provider Last Modified By Organization Details Last Modified Time Details Appointments None recorded. Lab None recorded. Referral None recorded. Procedures None recorded. Surgeries None recorded. Imaging audiogram 2023 024 [facility] Audiology, [address], [place], [address], 17:14:20 Medication Orders None recorded. Patient TargetsNo targets recorded. Patient InstructionsNo instructions recorded. Reason for Referral None Reported. Results Created Date Observation Date Name Description Value Unit Range Abnormal Flag Note LastModifiedBy Organization Detail LastModifiedTime 08/11/19 24 08/11/2023 audio gram + tympa nogra m No observ ation record ed. [email or web address] Located Within [facility] Audiology [address] [place], [address], 08/19/2023 09:30:57 08/12/19 24 08/12/2023 audio gram + tympa nogra m No observ ation record ed. [email or web address] Located Within [facility] Audiology [address] [place], [address], 08/12/2023 10:35:19 Result Notes None recorded. Problems Name Problem SNOMED Code Status Onset Date Resolution Date Notes Provider Name and Address Organization Details Recorded Time Asymmetrical sensorineural hearing loss 799877287 Active 2023 Mirna Fall RN null, [facility] 4 13:12:09 Dysphagia 19856199 Active 2023 Mirna Fall RN null, [facility] 4 13:12:32 Allergic rhinitis 47255863 Active 2023 Tavo Prasad MD [address], [address], [place], [address], [facility] [employer] 4 13:22:22 Pain in throat 021073129 Active 2023 Tavo Prasad MD [address], [address], [place], [address], [facility] 4 13:22:22 Sensorineural hearing loss 47713862 Active 2023 Tavo Prasad MD [address], [address], [place], [address], [facility] 13:23:10 Problem Notes None recorded. Procedures Surgical History None recorded. Imaging Results Imaging Date Name Status LastModified by Organiz ation Details LastModified Time 08/11/2023 audiogram + tympanogram completed [email or web address] Located Within [facility] Audiology [address] [place], [address], 08/19/2023 09:30:57 08/12/2023 audiogram + tympanogram completed [facility] Audiology [address] [facility] [place], [address], 08/12/2023 10:35:19 Procedure Notes None recorded. Medical Equipment None Reported. Allergies Allergen ID Allergen Name Allergen Category Reaction Reaction Severity Criticality Documentation Date Start Date Code Code System Note Provider Name and Address Organization Details Recorded Time 11610 Zofran medicatio n rash Not available Not available 07/22/2023 27820 RxNorm pt. exper ience d react ion via IV, but unsur e how med. may react if inges marion/ orall y. FENRIE Feldman null, [facility] 4 09:46:42 Medications Name Sig Start Date [...] Updated DateTime 07/29/2023 162.56 cm 36.9 kg/m2 00986.36 g 98.2 [degF] Mirna Fall RN [place] [facility] [employer] 07/29/2023 12:20:58 Social History None recorded. Functional Status Question Answer Note LastModified by Organization D etails LastModified Time What is your level of alcohol consumption? None [email or web address] Information not available 07/22/2023 Mental Status None recorded. Family History Relationship [...] SNOMED-CT Code Diagnosis ICD10 Code Diagnosis Note [id number] Tavo Prasad MD [facility] [address] [place] [address] 07/29/2023 12:10:10 08/03/2023 11:43:40 Allergic rhinitis 89678474 J30.0 Encourage to take OTC Zyrtec type meds with flonase for 3-4 months. Dysphagia 36609943 R13.1 0 Sensorineu ral hearing loss 97264282 H90.5 Health Concerns Section Related Observation LastModified by Organization Detai ls LastModified Time None Recorded Concern Status LastModified by Organization Details LastModified Time None Recorded Advance Directives Directive None Recorded Payers Encounter Date Sequence Insurance Name Policy Number Policy Law Covered Member ID Law Member ID Guarantor Name 07/29/2023 1 [facility] (MEDICAID REPLACEMENT - HMO) [id number] Kellie Garrido [id number] Kellie Garrido Notes Date Note Type Note Provider Name and Address Organization Details Recorded Time 07/29/2023 text/html left hearing los s for years. Dysphagia for months. Nasal congestion also for years. Tavo Prasad MD [address] [facility] [facility] [address], [place], [address], [facility] 07/29/2023 13:24:37 OBGyn Episode No OBEpisode recorded.
--- OUTSIDE RECORDS SUMMARY | 2024-11-03 11:21 | XMS_ITS | Continuity of Care Document ---
Author Organization [facility] Address [address] [place] [address] Phone Care Team Providers Care It Integration Architect Name Role Phone Dorene WATER PROJECT ENGINEER, Mary Anne Unavailable Unavailable Dorene WATER PROJECT ENGINEER, Mary Anne Unavailable Unavailable Allergies, Adverse Reactions, Alerts Substance Reaction Status Criticality ONDANSETRON HCL Active No Informati on Medications Medication Instructions Dosage Effective Dates (start - stop) Status Comments Vitamin D2 1,250 mcg (50,000 unit) capsule take 1 capsule by oral route every week 81283 UNITS - Active acyclovir 400 mg tablet take 1 tablet by oral route every day - Active Procedures Procedure Date OFFICE/OUTPATIENT VISIT, EST OFFICE/OUTPATIENT VISIT, EST URINE TEST OFFICE/OUTPATIENT VISIT, EST Advance Directives Directive Yes / No Effective Date File Name No Information Encounters Encounter Description Practice Location Reason(s) For Visit Diagnoses Date Provider Providers Copied on Encounter [facility], [address] [place] [address], [address], tel:[phone] No Information [address]. [address] [place], [place], [place]. tel:[phone] Referring Provider: Mary Anne Catherine, [address] [place], [place]. tel:[phone] sulting Provider: Mary Anne Catherine, [address] [place]. tel:[phone] OFFICE/OUTPA TIENT VISIT, EST [facility], [address] [place] [address], [address], tel:[phone] *[facility] Swelling (chief complaint) Toothache (chief complaint) MEDICATION SAFE TO TAKE WHILE (chief complaint) , unspecified gestational agePeriodontal disease 3 [address]. [address] [place], [place], . tel:[phone] [facility], [address] [place] [address], [address] [place] [address] tel:[phone] *[facility] Vitamin D deficiency [address] Mary Anne. [address] [place]. [phone] OFFICE/OUTPA TIENT VISIT, [facility], [address] [place] [address], [address] [place] [address] tel:[phone] *[facility] Hair loss (chief complaint) Anxiety (chief complaint) Body mass index [BMI] 27.0-27.9, adultHair lossEngages in vapingAnxietyHistor y of herpes genitalisVaginal dischargeOn laboratory technician drug therapy [address]. [address] [place]. [phone] OFFICE/OUTPA TIENT VISIT, [facility], [address] [place] [address], [facility], tel:[phone] *[facility] LUMP UNDER LEFT BREAST (chief complaint) Unspecified lump in unspecified breastMass of left breast, unspecified quadrant [address]. [address] [place], [place], [place]. tel:[phone] Family History Family Member Type Diagnosis Age [...]
--- OUTSIDE RECORDS SUMMARY | 2024-11-03 11:22 | XMS_ITS | Referral Summary ---
Author Organization [facility] Address [address] [place] [address] Phone Care Team Providers Care Dry Mop Maker Name Role Phone Victor Manuel Garcia MD [...] 5 x daily. Some cramping is reported. PROCESS CONTROLLER referral today. Bipolar affective 10/07/2017 Assessment & [...] & Plan (10/20/2017 10:17 PM CDT): 10/17/17 [facility] ER visit. UA 26-50 WBC, RBC 3-5. [...] on file Legal Sex Female 11:14 PM CHIEF LIFESTYLE OFFICER Gender Identity Not on file Sexual Orientation Not on file Occupation Industry Job Start Date Job End Date unemployed Not on file Not on file Not on file Last Filed Vital Signs Vital Sign Reading Time Taken Comments Blood Pressure 138/71 07/30/2022 4:32 PM CHIEF LIFESTYLE OFFICER Pulse 85 07/30/2022 4:32 PM CHIEF LIFESTYLE OFFICER Temperature 36.8 C (98.3 F) 07/30/2022 4:32 PM CHIEF LIFESTYLE OFFICER Respiratory Rate 16 07/30/2022 4:32 PM CHIEF LIFESTYLE OFFICER Oxygen Saturation 100% 07/30/2022 4:32 PM CHIEF LIFESTYLE OFFICER Inhaled Oxygen Concentration - - Weight 71.7 kg (158 lb) 07/30/2022 4:32 PM CHIEF LIFESTYLE OFFICER Height 162.6 cm (5' 4 ) 07/30/2022 4:32 PM CHIEF LIFESTYLE OFFICER Body Mass Index 27.12 07/30/2022 4:32 PM CHIEF LIFESTYLE OFFICER Plan of Treatment Not on file Procedures Procedure Name Priority Date/Time Associated Diagnosis Comments PAP SMEAR WITH HPV Routine 09/08/2017 from Last 3 Months or Most Recently Relevant to Health Maintenance Results * PAP SMEAR WITH HPV (09/08/2017) HM Pap smear Normal Historical Provider MD HEALTH MAINTENANCE Final Result from Last 3 Months or Most Recently Relevant to Health Maintenance Insurance [place] [employer] [facility] Care Teams Dry Mop Maker Relationship Specialty Start Date End Date Victor Manuel Garcia MD [address] [place] [address] PCP - General 10/15/17
--- OUTSIDE RECORDS SUMMARY | 2024-11-03 11:22 | XMS_ITS | Encounter Summary ---
Author Organization [facility] Address [address] [facility] [address] [place] [address] Phone Care Team Providers Care Ham Marker Name Role Phone Monisha Clinton MD Primary Care Provider Reason for Visit * Reason Comments Medication Refill Encounter Details Date Type Department Care Team (Late st Contact Info) Description 06/04/2021 Refill [facility] - Neurology [facility] [address] [place] [phone] Carlos Hernández MD [address] [place] [phone] Medication Refill Social History Tobacco Use Types [...] on filedocumented in this encounter Care Teams Ham Marker Relationship Specialty Start Date End Date Monisha Clinton MD [address] [place] [address] PCP - General Internal Medicine 06/03/19 documented as of this encounter
--- OUTSIDE RECORDS SUMMARY | 2024-11-03 11:22 | XMS_ITS | Clinical Summary ---
Author Organization [facility] Address [address] [place] [address] Care Team Providers Care Fine Arts Teacher Name Role Phone Monisha Clinton MD Primary [...] complete this topic [place] [address] MEDICAID [employer] Care Teams Fine Arts Teacher Relationship Specialty Start Date End Date Monisha Clinton MD [address] [place] [address] PCP - General Internal Medicine 06/03/19
--- OUTSIDE RECORDS SUMMARY | 2024-11-03 11:22 | XMS_ITS | Encounter Summary ---
Author Organization [facility] Address [address] [place] [address] Phone Care Team Providers Care Casing Worker Name Role Phone Monisha Clinton MD Primary Care Provider Reason for Visit * Reason Comments Medication Refill Encounter Details Date Type Department Care Team (Late st Contact Info) Description 04/22/2021 Refill [facility] - Neurology [facility] [address] [place] [phone] Carlos Hernández MD [address] [place] [phone] Medication Refill Social History Tobacco Use Types [...] on filedocumented in this encounter Care Teams Casing Worker Relationship Specialty Start Date End Date Monisha Clinton MD [address] [place] [address] PCP - General Internal Medicine 06/03/19 documented as of this encounter
--- OUTSIDE RECORDS SUMMARY | 2024-11-03 11:22 | XMS_ITS | Clinical Summary ---
Author Organization [facility] Address [address] [place] [address] Phone Care Team Providers Care Cable Tool Driller Name Role Phone Victor Manuel Garcia MD [...] 5 x daily. Some cramping is reported. EVENT STAFF MEMBER referral today. Bipolar affective 10/07/2017 Assessment & [...] & Plan (10/20/2017 10:17 PM CDT): 10/17/17 [facility] ER visit. UA 26-50 WBC, [...] on file Legal Sex Female 11:14 PM NUTRITION PARTNER Gender Identity Not on file Sexual Orientation [...] Comments Blood Pressure 138/71 07/30/2022 4:32 PM NUTRITION PARTNER Pulse 85 07/30/2022 4:32 PM NUTRITION PARTNER Temperature 36.8 C (98.3 F) 07/30/2022 4:32 PM NUTRITION PARTNER Respiratory Rate 16 07/30/2022 4:32 PM NUTRITION PARTNER Oxygen Saturation 100% 07/30/2022 4:32 PM NUTRITION PARTNER Inhaled Oxygen Concentration - - Weight 71.7 kg (158 lb) 07/30/2022 4:32 PM NUTRITION PARTNER Height 162.6 cm (5' 4 ) 07/30/2022 4:32 PM NUTRITION PARTNER Body Mass Index 27.12 07/30/2022 4:32 PM NUTRITION PARTNER Plan of Treatment Health Maintenance Due Date [...] Most Recently Relevant to Health Maintenance Insurance [place] [facility] [place] [address] [place] [address] [place] [address] [place] [address] DIVISION Member Subscriber Plan / Payer (Ef fective 2021-Present) Name:Kellie Garrido Relation to Subscriber:Self Name:Kellie Garrido Payer ID:[id number] Group ID:Not on file Type:MEDICAID [place] Address: [address] HEALTH PLAN Care Teams Cable Tool Driller Relationship Specialty Start Date End Date Victor Manuel Garcia MD [address] [facility] [address] [place] [address] PCP - General 10/15/17
--- NOTE | 2024-11-03 11:46 | ED.LOWEXIN ---
HPI - Extremity Injury (Lower) General Chief Complaint: Extremity Injury, Lower Stated Complaint: sent by PCP to have foot reevaluated Time Seen by Provider: 11/03/24 10:52 History of Present Illness HPI Narrative: 29-year-old female presents to the emergency department for left foot and ankle pain after an injury that 5 days ago. Patient states she tripped while walking up the stairs and rolled her left ankle/foot. She went to outside facility and had x-rays performed which were unremarkable. She is given a walking boot and advised to follow-up. She contacted her PCP who advised to come to the ED for repeat x-rays since she is continuing to have pain in her swelling has improved, reportedly worried for a hairline fracture. Patient is reporting tingling and difficulty with movement to her left 5th toe and bruising and pain to the lateral aspect of the foot and ankle. She has been ambulating with a walking boot. Denies known head injury, LOC, neck pain, back pain or other injuries acquired. Related Data Home Medications Medication Instructions Recorded Confirmed Last Taken Type acyclovir 400 mg tablet 400 mg PO DAILY 02/18/23 02/18/23 02/17/23 12:00 History aripiprazole 10 mg tablet 10 mg PO DAILY 02/18/23 02/18/23 02/17/23 12:00 History cholecalciferol (vitamin D3) 1,250 50,000 unit PO WEEKLY 02/18/23 02/18/23 02/17/23 12:00 History mcg (50,000 unit) capsule metoclopramide HCl 10 mg tablet 10 mg PO DAILY 02/18/23 02/18/23 02/17/23 12:00 History (Reglan) vit no.95-ferrous 1 tablet PO DAILY 02/18/23 02/18/23 02/17/23 12:00 History fumarate 28 mg-folic acid 800 mcg tablet () Allergies Allergy/AdvReac Type Severity Reaction Status Date / Time ondansetron Allergy Mild Rash Verified 11/03/24 10:41 Review of Systems Review of Systems: All systems reviewed & are unremarkable except as noted in HPI and below PMFSH Past Medical History Medical History Bipolar 1 disorder (normal spontaneous vaginal delivery) x 2 at term History of bipolar disorder Surgical History Surgical History History of D&C for SAB Social History Social History Smoking status: Current every day smoker Tobacco type: cigarettes Second hand tobacco smoke exposure: Yes Alcohol intake: never Substance use: current Substance use type: marijuana Lack of Transportation: No Lack of Food: Never True Current Housing: I Have Housing Concerned About Future Housing: No Difficulty Paying Gas/Electric Bills: No Difficulty Paying for Meds: No Currently Unemployed: No Education: Don't Know Difficulty w/ Childcare or Family Care: No Spiritual care concerns: No Exam Narrative: GENERAL: Well-appearing, well-nourished, and in no acute distress. HEAD: Normocephalic, atraumatic. EYES: EOMI. ENT: Nares clear, no rhinorrhea or epistaxis. Mucous membranes moist. Bilateral TMs are huffman nonbulging with canals, no hemotympanum NECK/BACK: No midline cervical thoracic or lumbar spinous tenderness, crepitus, step-offs or deformities CHEST: Clear to auscultation. No respiratory distress. HEART: Regular rate and rhythm. No murmur heard. Normal peripheral pulses. EXTREMITIES: LLE: Edema, ecchymosis and tenderness to the lateral malleolus and overlying the 4th and 5th metatarsals, no obvious deformities. Patient able to wiggle toes, unable to wiggle the 5th digit. Patient has slight movement of her ankle, however limited due to pain. Negative Marrero's test. No tenderness remainder of extremity. Negative high squeeze. Sensation intact throughout. Cap refill less than 2 throughout. Small superficial well-healed abrasion over the dorsum of the left foot with no surrounding erythema or warmth. DP pulses 2+. SKIN: Warm, dry, no rash. NEURO: No focal deficits. Alert and oriented x3 Course Vital Signs Vital signs: Vital Signs Temperature 97.6 F 11/03/24 10:37 Pulse Rate 87 11/03/24 10:37 Respiratory Rate 16 11/03/24 10:37 Blood Pressure 124/58 L 11/03/24 10:37 Pulse Oximetry 100 11/03/24 10:37 Temperature 97.6 F 11/03/24 10:37 Pulse Rate 87 11/03/24 10:37 Respiratory Rate 16 11/03/24 10:37 Blood Pressure 124/58 L 11/03/24 10:37 Pulse Oximetry 100 11/03/24 10:37 MDM - Extremity Injury (Lower) MDM Narrative Medical decision making narrative: 29-year-old female presents emergency department for persistent pain and swelling to the left ankle and foot after mechanical injury that occurred 5 days ago. Patient went to outside facility had x-rays performed which were reportedly negative. Presents today per her PCP to have repeat x-rays performed. Triage vitals are stable. Exam significant for the above. Pulses intact. X-ray of the foot and ankle show no acute osseous findings. Patient updated on results. Presentation consistent with ankle/foot sprain. Encouraged RICE. She has naproxen at home she is taking which I encouraged her to continue. Will provide follow-up for podiatry. Discussed strict ED return precautions. She is agreeable to plan verbalized understanding. Discharged in stable condition. Discharge Plan Discharge Clinical Impression: Left ankle sprain Qualifiers: Encounter type: initial encounter Involved ligament of ankle: unspecified ligament Qualified Code(s): S93.402A - Sprain of unspecified ligament of left ankle, initial encounter Sprain of left foot Qualifiers: Encounter type: initial encounter Qualified Code(s): S93.602A - Unspecified sprain of left foot, initial encounter Patient Disposition: Home Condition: Stable Instructions: Antibiotic Form, Ankle Sprain (DC), Foot Sprain (ED) Additional Instructions: You were evaluated in the emergency department for left ankle and foot pain and swelling after an injury. Your x-rays today show no acute broken bones or dislocations. Please rest, ice, elevate and keep your foot and ankle compressed, continue wearing the walking boot. Take naproxen as needed for pain as prescribed. Follow-up close with her PCP and infrastructure solutions architect. Return to the emergency department if you develop any new or worsening symptoms. Patient Language: Thai Prescriptions: No Action sulfamethoxazole-trimethoprim [Bactrim DS] 800-160 mg tablet 1 tablet PO Q12H Qty: 14 0RF benzonatate 200 mg capsule 200 mg PO TID PRN (Reason: cough) Qty: 30 0RF azithromycin 250 mg tablet See Rx Instructions .ROUTE .COMPLEX Qty: 6 0RF Rx Instructions: For 250 mg dose pack: take 500 mg today (day 1), then 250 mg for 4 days (days 2-5) promethazine 12.5 mg tablet 12.5 mg PO TID Qty: 14 0RF acyclovir 400 mg tablet 400 mg PO DAILY metoclopramide HCl [Reglan] 10 mg Tablet 10 mg PO DAILY aripiprazole 10 mg tablet 10 mg PO DAILY cholecalciferol (vitamin D3) 1,250 mcg (50,000 unit) capsule 50,000 unit PO WEEKLY PNV cmb#95-ferrous fumarate-FA [] 28 mg iron- 800 mcg Tablet 1 tablet PO DAILY hydrocodone-acetaminophen 5-325 mg tablet 1 tablet PO Q6H PRN (Reason: pain) Qty: 28 0RF ibuprofen 600 mg tablet 600 mg PO Q6H PRN (Reason: pain) Qty: 30 0RF dicyclomine 20 mg tablet 20 mg PO TID PRN (Reason: abdominal pain) Qty: 30 0RF Follow-up/Referrals: Chapin Diaz Jr., DPM [Physician] - Jermaine,ILANA Delaney [Primary Care Provider] -
== END 2024-11-03 12:18 | disposition home or self-care (01) ==
PROVIDERS: Emergency Provider Physician Assistant; PCP Physician Assistant Medical
DX: S93.402A Sprain of unspecified ligament of left ankle, initial encounter (principal); S93.602A Unspecified sprain of left foot, initial encounter; X50.1XXA Overexertion from prolonged static or awkward postures, initial encounter; F31.9 Bipolar disorder, unspecified; F17.210 Nicotine dependence, cigarettes, uncomplicated
CPT/HCPCS: 73610; 73630; 99283

== ENCOUNTER 2025-01-31 22:11 | Emergency (ER) | payer BC, SELFPAY ==
[2025-01-31 22:13] VITALS: BP 130/81; PULSE 93; RESP 18; TEMP 36.6; O2SAT 98
--- NOTE | 2025-01-31 23:25 | PC.NURSE ---
pt ambualtory to triage desk and states she is wanting to leave and will try and come back again tomorrow. Pt was recommended to stay but she states she is not wanting to wait any further. Pt exited ED with steady gait. Pt left without being seen.
--- OUTSIDE RECORDS SUMMARY | 2025-01-31 23:48 | XMS_ITS | Encounter Summary ---
Author Organization [facility] Address [address] [facility] [address] [facility] [place] [address] Phone Care Team Providers Care Varnisher Name Role Phone Monisha Clinton MD Primary Care Provider Reason for Visit * Reason Comments Medication Refill Encounter Details Date Type Department Care Team (Late st Contact Info) Description 06/04/2021 Refill [facility] - Neurology [facility] [address] [place] [phone] Carlos Hernández MD [address] [place] [phone] Medication Refill Social History Tobacco Use Types [...] on filedocumented in this encounter Care Teams Varnisher Relationship Specialty Start Date End Date Monisha Clinton MD [address] [place] [address] PCP - General Internal Medicine 06/03/19 documented as of this encounter
--- OUTSIDE RECORDS SUMMARY | 2025-01-31 23:48 | XMS_ITS | Clinical Summary ---
Author Organization [facility] Address [address] [place] [address] Phone Care Team Providers Care Real Estate Developer Name Role Phone Victor Manuel Garcia MD [...] 5 x daily. Some cramping is reported. SALES REPRESENTATIVE UNIFORMS referral today. Bipolar affective 10/07/2017 Assessment & [...] & Plan (10/20/2017 10:17 PM CDT): 10/17/17 [facility] ER visit. UA 26-50 WBC, RBC [...] GFR WNL. Self reported hx of kidney issues. Tobacco use 04/03/2017 Assessment & Plan (10/07/2017 [...] on file Legal Sex Female 11:14 PM MILIEU COORDINATOR Gender Identity Not on file Sexual Orientation [...] Comments Blood Pressure 138/71 07/30/2022 4:32 PM MILIEU COORDINATOR Pulse 85 07/30/2022 4:32 PM MILIEU COORDINATOR Temperature 36.8 C (98.3 F) 07/30/2022 4:32 PM MILIEU COORDINATOR Respiratory Rate 16 07/30/2022 4:32 PM MILIEU COORDINATOR Oxygen Saturation 100% 07/30/2022 4:32 PM MILIEU COORDINATOR Inhaled Oxygen Concentration - - Weight 71.7 kg (158 lb) 07/30/2022 4:32 PM MILIEU COORDINATOR Height 162.6 cm (5' 4) 07/30/2022 4:32 PM MILIEU COORDINATOR Body Mass Index 27.12 07/30/2022 4:32 PM MILIEU COORDINATOR Plan of Treatment Health Maintenance Due Date Last Done Comments Hepatitis C Screening 1993 Varicella Vaccines (1 of 2 - 13+ 2-dose series) 2006 Regular Well Visit/Exam 18-64 2011 Pneumococcal vaccine <65 (1 of 2 - PCV) 2012 Cervical Cancer Screening 09/08/2018 09/08/2017 Depression Screening 10/20/2018 10/20/2017, 10/07/19 18 HPV Vaccines (1 - 3-dose SCD M series) 2020 Influenza Vaccine (#1) 2025 04/03/2017, 2009 DTaP/Tdap/Td Vaccine (9 - Td or Tdap) 08/07/2027 08/07/2017, 05/04/2017, 05/31/2014, Additional history exists Hepatitis B Screening Completed 03/21/2005 , 07/03/2004, 12/11/1999 Procedures Procedure Name Priority Date/Time Associated Diagnosis Comments PAP SMEAR WITH HPV Routine 09/08/2017 from Last 3 Months or Most Recently Relevant to Health Maintenance Results * PAP SMEAR WITH HPV (09/08/2017) Pap smear Normal [facility] Provider MD HEALTH MAINTENANCE Final Result from Last 3 Months or Most Recently Relevant to Health Maintenance Insurance [place] [employer] [place] [address] [place]ISION [place] [facility] Member Subscriber Plan / Payer (Ef fective 2021-Present) Name:Kellie Garrido Relation to Subscriber:Self Name:Kellie Garrido Payer ID:[id number] Group ID:Not on file Type:MEDICAID [place] Address: [address] HEALTH PLAN Care Teams Real Estate Developer Relationship Specialty Start Date End Date Victor Manuel Garcia MD [address] [facility] [address] [place] [address] PCP - General 10/15/17
--- OUTSIDE RECORDS SUMMARY | 2025-01-31 23:48 | XMS_ITS | Encounter Summary ---
Author Organization [facility] Address [address] [place] [address] Phone Care Team Providers Care Hod Carrier Name Role Phone Monisha Clinton MD Primary Care Provider Reason for Visit * Reason Comments Medication Refill Encounter Details Date Type Department Care Team (Late st Contact Info) Description 04/22/2021 Refill [facility] - Neurology [facility] [address] [place] [address] Carlos Hernández MD [address] [place] [phone] Medication Refill Social History Tobacco Use Types [...] on filedocumented in this encounter Care Teams Hod Carrier Relationship Specialty Start Date End Date Monisha Clinton MD [address] [place] [address] PCP - General Internal Medicine 06/03/19 documented as of this encounter
--- OUTSIDE RECORDS SUMMARY | 2025-01-31 23:48 | XMS_ITS | Patient Health Record ---
Author Organization [facility] Address [address] [facility] [address] [place] [address] Care Team Providers Care Lean Consultant Name Role Phone Ish Luo Unavailable [phone] Reason For Referral No Information Medications Medication SIG (Take, Route, Frequency, Duration) Notes Start Date End Date Status [place] Carbonate 150 MG Oral Active Plan Of Treatment No Information
--- OUTSIDE RECORDS SUMMARY | 2025-01-31 23:48 | XMS_ITS | Continuity of Care Document ---
Author Organization [facility] Address [address] [place] [address] Phone Care Team Providers Care Bobbin Doffer Name Role Phone Dorene THIRD RIGGER, Mary Anne Unavailable Unavailable Dorene THIRD RIGGER, Mary Anne Unavailable Unavailable Allergies, Adverse Reactions, Alerts Substance Reaction Status Criticality ONDANSETRON HCL Active No Informati on Medications Medication Instructions Dosage Effective Dates (start - stop) Status Comments Vitamin D2 1,250 mcg (50,000 unit) capsule take 1 capsule by oral route every week [address] UNITS - Active acyclovir 400 mg tablet take 1 tablet by oral route every day - Active Procedures Procedure Date OFFICE/OUTPATIENT VISIT, EST OFFICE/OUTPATIENT VISIT, EST URINE TEST OFFICE/OUTPATIENT VISIT, EST Advance Directives Directive Yes / No Effective Date File Name No Information Encounters Encounter Description Practice Location Reason(s) For Visit Diagnoses Date Provider Providers Copied on Encounter [facility], [address] [place] [address], [address], tel:[phone] No Information [address] [place], [place], [place]. tel:[phone] Referring Provider: Mary Anne Catherine, [address] [place]. tel:[phone] sulting Provider: Mary Anne Catherine, [address] [place]. tel:[phone] OFFICE/OUTPA TIENT VISIT, EST [facility], [address] [place] [address], [address], tel:[phone] *[facility] Swelling (chief complaint) Toothache (chief complaint) MEDICATION SAFE TO TAKE WHILE (chief complaint) , unspecified gestational agePeriodontal disease [address]. [address] [place], . tel:[phone] [facility], [address] [place] [address], [address] [place] [address] tel:[phone] *[facility] Vitamin D deficiency [address] Mary Anne. [address] [place] [phone] OFFICE/OUTPA TIENT VISIT, [facility], [address] [place] [address], [address] [place] [address] tel:[phone] *[facility] Hair loss (chief complaint) Anxiety (chief complaint) Body mass index [BMI] 27.0-27.9, adultHair lossEngages in vapingAnxietyHistor y of herpes genitalisVaginal dischargeOn snf drug therapy [address]. [address] [place] [phone] OFFICE/OUTPA TIENT VISIT, [facility], [address] [place] [address], [facility], tel:[phone] *[facility] Care LUMP UNDER LEFT BREAST (chief complaint) Unspecified lump in unspecified breastMass of left breast, unspecified quadrant [address], [place], [place]. tel:[phone] Family History Family Member Type Diagnosis Age [...]
--- OUTSIDE RECORDS SUMMARY | 2025-01-31 23:48 | XMS_ITS | Clinical Summary ---
Author Organization [facility] Address [address] [place] [address] Care Team Providers Care Cyber Defense Forensics Analyst Name Role Phone Monisha Clinton MD Primary [...] 3:32 PM CDT Height 162.6 cm (5' 4) 03/22/2021 3:32 PM CDT Body Mass Index 27.41 03/22/2021 3:32 PM CDT Plan of Treatment Health Maintenance Due Date Last Done Comments Hepatitis C Virus (HCV) Screening 1993 Pap Smear 2014 Human Papillomavirus (HPV) Immunization (1 - 3-dose SCDM series) 2020 Cervical Cancer Screening (CCS) 2023 HPV/Cotest 2023 SARS-COV-2 Immunization ( season) 2024 Influenza Immunization (#1) 2025 04/03/2017 Respiratory Syncytial Virus (RSV) Immunization (Adult) (1 [...] patient's age to complete this topic Insurance MEDICAID [facility] Care Teams Cyber Defense Forensics Analyst Relationship Specialty Start Date End Date Monisha Clinton MD [address] [place] [address] PCP - General Internal Medicine 06/03/19
== END 2025-01-31 23:25 | disposition left against medical advice (07) ==
LOC: ANHED 23:46
PROVIDERS: PCP Physician Assistant Medical
DX: M54.9 Dorsalgia, unspecified (principal)
CPT/HCPCS: 99199

== ENCOUNTER 2025-02-02 12:27 | Emergency (ER) | payer BC, SELFPAY ==
--- OUTSIDE RECORDS SUMMARY | 2025-02-02 12:30 | XMS_ITS | Clinical Summary ---
Author Organization [facility] Address [address] [place] [address] Phone Care Team Providers Care Art Manager Name Role Phone Victor Manuel Garcia [...] 5 x daily. Some cramping is reported. CUSTOMS AND BORDER PROTECTION OFFICER referral today. Bipolar affective 10/07/2017 Assessment & [...] & Plan (10/20/2017 10:17 PM CDT): 10/17/17 [facility] ER visit. UA 26-50 WBC, RBC [...] on file Legal Sex Female 11:14 PM PSYCHOLOGIST EXPERIMENTAL Gender Identity Not on file Sexual Orientation [...] Comments Blood Pressure 138/71 07/30/2022 4:32 PM PSYCHOLOGIST EXPERIMENTAL Pulse 85 07/30/2022 4:32 PM PSYCHOLOGIST EXPERIMENTAL Temperature 36.8 C (98.3 F) 07/30/2022 4:32 PM PSYCHOLOGIST EXPERIMENTAL Respiratory Rate 16 07/30/2022 4:32 PM PSYCHOLOGIST EXPERIMENTAL Oxygen Saturation 100% 07/30/2022 4:32 PM PSYCHOLOGIST EXPERIMENTAL Inhaled Oxygen Concentration - - Weight 71.7 kg (158 lb) 07/30/2022 4:32 PM PSYCHOLOGIST EXPERIMENTAL Height 162.6 cm (5' 4) 07/30/2022 4:32 PM PSYCHOLOGIST EXPERIMENTAL Body Mass Index 27.12 07/30/2022 4:32 PM PSYCHOLOGIST EXPERIMENTAL Plan of Treatment Health Maintenance Due Date [...] SMEAR WITH HPV (09/08/2017) Pap smear Normal [facility] Provider MD HEALTH MAINTENANCE Final Result from Last 3 Months or Most Recently Relevant to Health Maintenance Insurance [place] [employer] [address] [place] [address] [place]ISION [place] [facility] Member Subscriber Plan / Payer (Ef fective 2021-Present) Name:Kellie Garrido Relation to Subscriber:Self Name:Kellie Garrido Payer ID:[id number] Group ID:Not on file Type:MEDICAID [place] Address: [address] HEALTH PLAN Care Teams Art Manager Relationship Specialty Start Date End Date Victor Manuel Garcia MD [address] [facility] [address] [place] [address] PCP - General 10/15/17
--- OUTSIDE RECORDS SUMMARY | 2025-02-02 12:30 | XMS_ITS | Patient Health Record ---
Author Organization [facility] Address [address] [facility] [address] [place] [address] Care Team Providers Care Business Assistant Name Role Phone Ish Luo Unavailable [phone] Reason For Referral No Information Medications Medication SIG (Take, Route, Frequency, Duration) Notes Start Date End Date Status [place] Carbonate 150 MG Oral Active Plan Of Treatment No Information
--- OUTSIDE RECORDS SUMMARY | 2025-02-02 12:30 | XMS_ITS | Encounter Summary ---
Author Organization [facility] Address [address] [facility] [place] [address] Phone Care Team Providers Care Cook Manager Name Role Phone Monisha Clinton MD Primary Care Provider Reason for Visit * Reason Comments Medication Refill Encounter Details Date Type Department Care Team (Late st Contact Info) Description 04/22/2021 Refill [facility] - Neurology [facility] [address] [place] [phone] Carlos Hernández MD [address] [place] [phone] Medication Refill Social History Tobacco Use Types [...] on filedocumented in this encounter Care Teams Cook Manager Relationship Specialty Start Date End Date Monisha Clinton MD [address] [place] [address] PCP - General Internal Medicine 06/03/19 documented as of this encounter
--- OUTSIDE RECORDS SUMMARY | 2025-02-02 12:30 | XMS_ITS | Encounter Summary ---
Author Organization [facility] Address [address] [facility] [place] [address] Phone Care Team Providers Care Cable Engineer Outside Plant Name Role Phone Monisha Clinton MD Primary Care Provider Reason for Visit * Reason Comments Medication Refill Encounter Details Date Type Department Care Team (Late st Contact Info) Description 06/04/2021 Refill [facility] - Neurology [facility] [address] [place] [phone] Carlos Hernández MD [address] [place] [phone] Medication Refill Social History Tobacco Use Types [...] on filedocumented in this encounter Care Teams Cable Engineer Outside Plant Relationship Specialty Start Date End Date Monisha Clinton MD [address] [place] [address] PCP - General Internal Medicine 06/03/19 documented as of this encounter
--- OUTSIDE RECORDS SUMMARY | 2025-02-02 12:30 | XMS_ITS | Clinical Summary ---
Author Organization [facility] Address [address] [place] [address] Care Team Providers Care Mushroom Sorter Grader Name Role Phone Monisha Clinton MD Primary [...] to complete this topic Insurance MEDICAID AENA [facility] Care Teams Mushroom Sorter Grader Relationship Specialty Start Date End Date Monisha Clinton MD [address] [place] [address] PCP - General Internal Medicine 06/03/19
[2025-02-02 12:31] VITALS: BP 125/74; PULSE 87; RESP 18; TEMP 36.9; O2SAT 99
--- OUTSIDE RECORDS SUMMARY | 2025-02-02 14:58 | XMS_ITS | Clinical Summary ---
Author Organization [facility] Address [address] [place] [address] Care Team Providers Care Light Bulb Replacer Name Role Phone Monisha Clinton MD Primary [...] to complete this topic Insurance [facility]ID [facility] Care Teams Light Bulb Replacer Relationship Specialty Start Date End Date Monisha Clinton MD [address] [place] [address] PCP - General Internal Medicine 06/03/19
--- OUTSIDE RECORDS SUMMARY | 2025-02-02 14:58 | XMS_ITS | Encounter Summary ---
Author Organization [facility] Address [address] [facility] [place] [address] Phone Care Team Providers Care Wheelchair Van Operator First Responder Name Role Phone Monisha Clinton MD Primary Care Provider Reason for Visit * Reason Comments Medication Refill Encounter Details Date Type Department Care Team (Late st Contact Info) Description 04/22/2021 Refill [facility] - Neurology [facility] [address] [place] [phone] Carlos Hernández MD [address] [place] [phone] Medication Refill Social History Tobacco Use Types [...] on filedocumented in this encounter Care Teams Wheelchair Van Operator First Responder Relationship Specialty Start Date End Date Monisha Clinton MD [address] [place] [address] PCP - General Internal Medicine 06/03/19 documented as of this encounter
--- OUTSIDE RECORDS SUMMARY | 2025-02-02 14:58 | XMS_ITS | Encounter Summary ---
Author Organization [facility] Address [address] [facility] [address] Phone Care Team Providers Care Snapper On Name Role Phone Monisha Clinton MD Primary Care Provider Reason for Visit * Reason Comments Medication Refill Encounter Details Date Type Department Care Team (Late st Contact Info) Description 06/04/2021 Refill [facility] - Neurology [facility] [address] [place] [phone] Carlos Hernández MD [address] [place] [phone] Medication Refill Social History Tobacco Use Types [...] on filedocumented in this encounter Care Teams Snapper On Relationship Specialty Start Date End Date Monisha Clinton MD [address] [place] [address] PCP - General Internal Medicine 06/03/19 documented as of this encounter
--- OUTSIDE RECORDS SUMMARY | 2025-02-02 14:58 | XMS_ITS | Clinical Summary ---
Author Organization [facility] Address [address] [facility] [facility] [address] [place] [address] Phone Care Team Providers Care Community Pharmacist Name Role Phone Victor Manuel Garcia MD [...] 5 x daily. Some cramping is reported. HYDROPULPER OPERATOR referral today. Bipolar affective 10/07/2017 Assessment [...] & Plan (10/20/2017 10:17 PM CDT): 10/17/17 [facility] ER visit. UA 26-50 WBC, RBC [...] on file Legal Sex Female 11:14 PM DIESEL ENGINE II PIPE FITTER Gender Identity Not on file Sexual Orientation [...] Comments Blood Pressure 138/71 07/30/2022 4:32 PM DIESEL ENGINE II PIPE FITTER Pulse 85 07/30/2022 4:32 PM DIESEL ENGINE II PIPE FITTER Temperature 36.8 C (98.3 F) 07/30/2022 4:32 PM DIESEL ENGINE II PIPE FITTER Respiratory Rate 16 07/30/2022 4:32 PM DIESEL ENGINE II PIPE FITTER Oxygen Saturation 100% 07/30/2022 4:32 PM DIESEL ENGINE II PIPE FITTER Inhaled Oxygen Concentration - - Weight 71.7 kg (158 lb) 07/30/2022 4:32 PM DIESEL ENGINE II PIPE FITTER Height 162.6 cm (5' 4) 07/30/2022 4:32 PM DIESEL ENGINE II PIPE FITTER Body Mass Index 27.12 07/30/2022 4:32 PM DIESEL ENGINE II PIPE FITTER Plan of Treatment Health Maintenance Due Date [...] SMEAR WITH HPV (09/08/2017) Pap smear Normal [facility] Provider MD HEALTH MAINTENANCE Final Result from Last 3 Months or Most Recently Relevant to Health Maintenance Insurance [place] [employer] [address] [place] [address] [facility]ISION [place] [facility] Member Subscriber Plan / Payer (Ef fective 2021-Present) Name:Kellie Garrido Relation to Subscriber:Self Name:Kellie Garrido Payer ID:[id number] Group ID:Not on file Type:MEDICAID [place] Address: [address] HEALTH PLAN Care Teams Community Pharmacist Relationship Specialty Start Date End Date Victor Manuel Garcia MD [address] [facility] [address] [place] [address] PCP - General 10/15/17
== END 2025-02-02 15:15 | disposition left against medical advice (07) ==
PROVIDERS: PCP Physician Assistant Medical
DX: R10.9 Unspecified abdominal pain (principal)
CPT/HCPCS: 99199

== ENCOUNTER 2025-02-03 09:02 | Emergency (ER) | payer BC, SELFPAY ==
--- NOTE | ~2025-02-03 | US_ITS ---
EXAMINATION: US pelvic complete w TV DATE: 02/03/2025 11:01 INDICATION: Right lower quadrant abdominal pain. TECHNIQUE: Multiple transabdominal and endovaginal sonographic images of the pelvis were obtained. COMPARISON: None. FINDINGS: The uterus measures 10.1 x 4.1 x 5.5 cm. Couple anechoic nabothian cysts at the cervix the larger eusebio suring 8 mm and the smaller 5 mm. The endometrial complex measures 12 mm in thickness. The right ovar y measures 3.1 x 2.8 x 2.4 cm. The left ovary measures 2.3 x 2.2 x 1.8 cm. There are anechoic cysts/f ollicles in both ovaries measuring 1.7 cm on the right and 1.3 cm on the left. Vascular flow with art erial waveforms identified in both ovaries on color Doppler. There is no free fluid in the pelvis. IMPRESSION: 1. Normal pelvic ultrasound. Reviewed, dictated and finalized at location A.
--- NOTE | ~2025-02-03 | CT_ITS ---
EXAMINATION: CT abdomen pelvis wo con DATE: 02/03/2025 10:21 INDICATION: UTI. Bilateral flank pain. Right lower quadrant pain TECHNIQUE: Computed tomography (CT) of the abdomen and pelvis was performed without intravenous contr ast. The dose-length product was 668.96 mGy-cm. COMPARISON: 10/25/2024 FINDINGS: Small opacities in the lower lungs. There is a stable 6 mm nonobstructing calcification in the right kidney. There is a 3 mm nodule of no nobstructing in the left kidney. No hydronephrosis. Liver, spleen, gallbladder, pancreas are unremarkable. No enlarged lymph nodes in the abdomen or pelv is. No bladder calculi. No appendicitis. Mild concentric thickening of the choi of the bladder. Uterus is grossly unchanged. No colitis. No bowel obstruction. Bilateral pars defects at the L5 level with grade 1 anterolisthesis of L5 on S1 IMPRESSION: 1. There is a stable 6 mm nonobstructing calcification in the right kidney. 2. There is a 3 mm nodule of nonobstructing in the left kidney. 3. No hydronephrosis. 4. Mild concentric thickening of the choi of the bladder. Differential includes incomplete bladder w all distention versus cystitis. Reviewed, dictated and finalized at location A. IMPRESSION: 1. There is a stable 6 mm nonobstructing calcification in the right kidney. 2. There is a 3 mm nodule of nonobstructing in the left kidney. 3. No hydronephrosis. 4. Mild concentric thickening of the choi of the bladder. Differential include s incomplete bladder wall distention versus cystitis.
--- OUTSIDE RECORDS SUMMARY | 2025-02-03 09:09 | XMS_ITS | Encounter Summary ---
Author Organization [facility] Address [address] [facility] [place] [address] Phone Care Team Providers Care Overedge Machine Operator Name Role Phone Monisha Clinton MD Primary Care Provider Reason for Visit * Reason Comments Medication Refill Encounter Details Date Type Department Care Team (Late st Contact Info) Description 04/22/2021 Refill [facility] - [facility] [address] [place] [phone] Carlos Hernández MD [address] [place] [phone] Medication Refill Social History Tobacco Use Types [...] on filedocumented in this encounter Care Teams Overedge Machine Operator Relationship Specialty Start Date End Date Monisha Clinton MD [address] [place] [address] PCP - General Internal Medicine 06/03/19 documented as of this encounter
--- OUTSIDE RECORDS SUMMARY | 2025-02-03 09:09 | XMS_ITS | Encounter Summary ---
Author Organization [facility] Address [address] [place] [address] Phone Care Team Providers Care Elevator Installer Apprentice Name Role Phone Monisha Clinton MD Primary Care Provider Reason for Visit * Reason Comments Medication Refill Encounter Details Date Type Department Care Team (Late st Contact Info) Description 06/04/2021 Refill [facility] - Neurology [facility] [address] [place] [phone] Carlos Hernández MD [address] [place] [phone] Medication Refill Social History Tobacco Use Types [...] on filedocumented in this encounter Care Teams Elevator Installer Apprentice Relationship Specialty Start Date End Date Monisha Clinton MD [address] [place] [address] PCP - General Internal Medicine 06/03/19 documented as of this encounter
--- OUTSIDE RECORDS SUMMARY | 2025-02-03 09:09 | XMS_ITS | Clinical Summary ---
Author Organization [facility] Address [address] [place] [address] Care Team Providers Care University Intern Name Role Phone Monisha Clinton MD Primary [...] to complete this topic Insurance MEDICAID AENA [facility] Care Teams University Intern Relationship Specialty Start Date End Date Monisha Clinton MD [address] [place] [address] PCP - General Internal Medicine 06/03/19
--- OUTSIDE RECORDS SUMMARY | 2025-02-03 09:09 | XMS_ITS | Clinical Summary ---
Author Organization [facility] Address [address] [facility] [address] [place] [address] Phone Care Team Providers Care Cold Type Artist Name Role Phone Victor Manuel Garcia MD [...] 5 x daily. Some cramping is reported. MANUFACTURING AUTOMATION ENGINEER referral today. Bipolar affective 10/07/2017 Assessment & [...] (10/20/2017 10:17 PM CDT): 10/17/17 [facility] ER visit. UA 26-50 WBC, RBC 3-5. [...] on file Legal Sex Female 11:14 PM COMMUNITY AMBASSADOR Gender Identity Not on file Sexual Orientation [...] Comments Blood Pressure 138/71 07/30/2022 4:32 PM COMMUNITY AMBASSADOR Pulse 85 07/30/2022 4:32 PM COMMUNITY AMBASSADOR Temperature 36.8 C (98.3 F) 07/30/2022 4:32 PM COMMUNITY AMBASSADOR Respiratory Rate 16 07/30/2022 4:32 PM COMMUNITY AMBASSADOR Oxygen Saturation 100% 07/30/2022 4:32 PM COMMUNITY AMBASSADOR Inhaled Oxygen Concentration - - Weight 71.7 kg (158 lb) 07/30/2022 4:32 PM COMMUNITY AMBASSADOR Height 162.6 cm (5' 4) 07/30/2022 4:32 PM COMMUNITY AMBASSADOR Body Mass Index 27.12 07/30/2022 4:32 PM COMMUNITY AMBASSADOR Plan of Treatment Health Maintenance Due Date [...] SMEAR WITH HPV (09/08/2017) Pap smear Normal [facility] Provider MD HEALTH MAINTENANCE Final Result from Last 3 Months or Most Recently Relevant to Health Maintenance Insurance [place] [employer] [place] [address] DIVISION [place] [facility] Member Subscriber Plan / Payer (Ef fective 2021-Present) Name:Kellie Garrido Relation to Subscriber:Self Name:Kellie Garrido Payer ID:[id number] Group ID:Not on file Type:MEDICAID [place] Address: [address] HEALTH PLAN Care Teams Cold Type Artist Relationship Specialty Start Date End Date Victor Manuel Garcia MD [address] [facility] [address] [place] [address] PCP - General 10/15/17
--- OUTSIDE RECORDS SUMMARY | 2025-02-03 09:09 | XMS_ITS | Patient Health Record ---
Author Organization [facility] Address [address] [facility] [address] [place] [address] Care Team Providers Care Manager Inventory Management Name Role Phone Ish Luo Unavailable [phone] Reason For Referral No Information Medications Medication SIG (Take, Route, Frequency, Duration) Notes Start Date End Date Status Trout Carbonate 150 MG Oral Active Plan Of Treatment No Information
[2025-02-03 09:14] VITALS: BP 139/90; PULSE 82; RESP 16; TEMP 36.4; O2SAT 99
[2025-02-03 09:30] LABS: BEDSIDEPREGUCG Negative (Negative)
[2025-02-03 09:42] LABS: Hematocrit 41.7 % (37.0-47.0); Hemoglobin 13.9 g/dL (12.0-15.0); Immature Granulocyte Percent A 0.3 % (0-0.5); Lymphocytes Absolute Auto 2.44 K/mm3 (0.9-3.2); Mean Corpuscular HGB Conc 33.3 g/dl (32-36); Mean Corpuscular Hemoglobin 33.9 pg (26-34); Mean Corpuscular Volume 101.7 fl (80-100); Nucleated Red Blood Cells Absolute Auto 0.000 K/mm3 (0.0-0.012); Nucleated Red Blood Cells Perc 0.0 % (0.0-0.2); Platelet Count Result 245 k/mm3 (150-375); Red Blood Count 4.10 M/mm3 (4.2-5.4); White Blood Count 13.7 K/mm3 (4.5-10.0)
[2025-02-03 09:53] LABS: Alanine Aminotransferase 23 U/L (6-35); Albumin Level 3.9 g/dL (3.5-5.1); Alkaline Phosphatase 72 U/L (38-126); Anion Gap 9 mmol/L (4-12); Aspartate Amino Transferase 31 U/L (14-36); Bilirubin,Total 0.3 mg/dL (0.2-1.3); Blood Urea Nitrogen 12 mg/dL (7-17); Calcium 9.0 mg/dL (8.4-10.2); Carbon Dioxide 24 mmol/L (22-30); Chloride 105 mmol/L (98-107); Estimated CRCL calculation 113 ml/min; Estimated Glomerular Filt Rate > 60; Glucose 142 mg/dL (65-110); Potassium 4.0 mmol/L (3.4-5.0); Sodium 138 mmol/L (137-145); Total Protein 6.6 g/dL (6.3-8.2)
--- OUTSIDE RECORDS SUMMARY | 2025-02-03 09:57 | XMS_ITS | Encounter Summary ---
Author Organization [facility] Address [address] [facility] [place] [address] Phone Care Team Providers Care Architectural Sales Consultant Name Role Phone Monisha Clinton MD Primary Care Provider Reason for Visit * Reason Comments Medication Refill Encounter Details Date Type Department Care Team (Late st Contact Info) Description 06/04/2021 Refill [facility] - Neurology [facility] [address] [place] [phone] Carlos Hernández MD [address] [place] [phone] Medication Refill Social History Tobacco Use Types [...] on filedocumented in this encounter Care Teams Architectural Sales Consultant Relationship Specialty Start Date End Date Monisha Clinton MD [address] [place] [address] PCP - General Internal Medicine 06/03/19 documented as of this encounter
--- OUTSIDE RECORDS SUMMARY | 2025-02-03 09:57 | XMS_ITS | Encounter Summary ---
Author Organization [facility] Address [address] [place] [address] Phone Care Team Providers Care Scientific Technical Writer Name Role Phone Monisha Clinton MD Primary Care Provider Reason for Visit * Reason Comments Medication Refill Encounter Details Date Type Department Care Team (Late st Contact Info) Description 04/22/[address] [facility] - Neurology [facility] [address] [place] [phone] Carlos Hernández MD [address] [place] [phone] Medication Refill Social History Tobacco Use Types [...] on filedocumented in this encounter Care Teams Scientific Technical Writer Relationship Specialty Start Date End Date Monisha Clinton MD [address] [place] [address] PCP - General Internal Medicine 06/03/19 documented as of this encounter
--- OUTSIDE RECORDS SUMMARY | 2025-02-03 09:57 | XMS_ITS | Clinical Summary ---
Author Organization [facility] Address [address] [place] [address] Phone Care Team Providers Care Lining Folder Name Role Phone Victor Manuel Garcia MD [...] 5 x daily. Some cramping is reported. OPTICAL GLASS ETCHER referral today. Bipolar affective 10/07/2017 Assessment & [...] & Plan (10/20/2017 10:17 PM CDT): 10/17/17 [facility] ER visit. UA 26-50 [...] on file Legal Sex Female 11:14 PM DEVELOPER PROVER UPHOLSTERING Gender Identity Not on file Sexual Orientation [...] Comments Blood Pressure 138/71 07/30/2022 4:32 PM DEVELOPER PROVER UPHOLSTERING Pulse 85 07/30/2022 4:32 PM DEVELOPER PROVER UPHOLSTERING Temperature 36.8 C (98.3 F) 07/30/2022 4:32 PM DEVELOPER PROVER UPHOLSTERING Respiratory Rate 16 07/30/2022 4:32 PM DEVELOPER PROVER UPHOLSTERING Oxygen Saturation 100% 07/30/2022 4:32 PM DEVELOPER PROVER UPHOLSTERING Inhaled Oxygen Concentration - - Weight 71.7 kg (158 lb) 07/30/2022 4:32 PM DEVELOPER PROVER UPHOLSTERING Height 162.6 cm (5' 4) 07/30/2022 4:32 PM DEVELOPER PROVER UPHOLSTERING Body Mass Index 27.12 07/30/2022 4:32 PM DEVELOPER PROVER UPHOLSTERING Plan of Treatment Health Maintenance Due Date [...] SMEAR WITH HPV (09/08/2017) Pap smear Normal [facility] Provider MD HEALTH MAINTENANCE Final Result from Last 3 Months or Most Recently Relevant to Health Maintenance Insurance [place] [employer] [place] [address] [address] [place] [facility] [place] [facility] Member Subscriber Plan / Payer (Ef fective 2021-Present) Name:Kellie Garrido Relation to Subscriber:Self Name:Kellie Garrido Payer ID:[id number] Group ID:Not on file Type:MEDICAID [place] Address: [address] HEALTH PLAN Care Teams Lining Folder Relationship Specialty Start Date End Date Victor Manuel Garcia MD [address] [facility] [address] [place] [address] PCP - General 10/15/17
--- OUTSIDE RECORDS SUMMARY | 2025-02-03 09:57 | XMS_ITS | Clinical Summary ---
Author Organization [facility] Address [address] [place] [address] Care Team Providers Care Public Works Commissioner Name Role Phone Monisha Clinton MD Primary [...] to complete this topic Insurance MEDICAID AENA [facility] Care Teams Public Works Commissioner Relationship Specialty Start Date End Date Monisha Clinton MD [address] [place] [address] PCP - General Internal Medicine 06/03/19
[2025-02-03 09:58] LABS: Add Urine Microscopic? YES; Appearance Urine Cloudy (Clear); Glucose Urine UA Negative (Negative); Leukocyte Esterase Ur 3+ LEU/UL (Negative); Nitrate Urine Negative (Negative); Specific Grav Ur 1.017 (1.001-1.035)
[2025-02-03 10:00] LABS: Non Pathogenic Casts 0-2
--- NOTE | 2025-02-03 10:13 | ED.FEMALEGU ---
HPI - Female Genitourinary General Chief complaint: Urogenital-Female Stated complaint: I think have dble kidney infection travel to [facility] Time Seen by Provider: 02/03/25 09:06 Source: patient Mode of arrival: ambulatory Limitations: no limitations History of Present Illness HPI Narrative: Patient is a 29-year-old female who presents to the ED with concern for urinary tract infection. Patient reports she has been seeing her OB for recurrent BV. Has been on antibiotics for this. Is currently trying to conceive with her partner. States over the past several weeks, she has been having dysuria, urinary frequency, bilateral flank pain. States the pain has become worse over the past few days with worsening pain in her right lower abdomen. Did have a small amount of spotting yesterday, unsure if this was from her urine or vagina. Reports intermittent nausea, vomiting. Denies fevers. Related Data Home Medications ?Medication ?Instructions ?Recorded ?Confirmed ?Last Taken ?Type acyclovir 400 mg tablet 400 mg PO DAILY 02/18/23 02/18/23 02/17/23 12:00 History aripiprazole 10 mg tablet 10 mg PO DAILY 02/18/23 02/18/23 02/17/23 12:00 History cholecalciferol (vitamin D3) 1,250 50,000 unit PO WEEKLY 02/18/23 02/18/23 02/17/23 12:00 History mcg (50,000 unit) capsule metoclopramide HCl 10 mg tablet 10 mg PO DAILY 02/18/23 02/18/23 02/17/23 12:00 History (Reglan) vit no.95-ferrous 1 tablet PO DAILY 02/18/23 02/18/23 02/17/23 12:00 History fumarate 28 mg-folic acid 800 mcg tablet () Allergies Allergy/AdvReac Type Severity Reaction Status Date / Time ondansetron Allergy Mild Rash Verified 02/03/25 09:18 Review of Systems Review of Systems: All systems reviewed & are unremarkable except as noted in HPI. All systems reviewed & are unremarkable except as noted in HPI and below PMFSH Past Medical History Medical History Bipolar 1 disorder (normal spontaneous vaginal delivery) x 2 at term History of bipolar disorder Surgical History Surgical History History of D&C for SAB Social History Social History Smoking status: Current every day smoker Tobacco type: cigarettes Second hand tobacco smoke exposure: Yes Alcohol intake: never Substance use: current Substance use type: marijuana Lack of Transportation: No Lack of Food: Never True Current Housing: I Have Housing Concerned About Future Housing: No Difficulty Paying Gas/Electric Bills: No Difficulty Paying for Meds: No Currently Unemployed: No Education: Don't Know Difficulty w/ Childcare or Family Care: No Spiritual care concerns: No Exam Narrative: GENERAL: Well appearing, obese with BMI of 33.1, non-toxic, in no acute distress. HEAD: Normocephalic, atraumatic. RESPIRATORY: Airway patent, respirations nonlabored. Clear to auscultation bilaterally, no rales, rhonchi, wheezing. CARDIOVASCULAR: Regular rate and rhythm without murmurs, rubs, or gallops. ABDOMINAL: Soft, tenderness to palpation in suprapubic region, right lower quadrant, left lower quadrant. Nondistended. Normoactive BS. No significant CVA tenderness to percussion MUSCULOSKELETAL: Moves all extremities. No gross deformities. SKIN: Warm, dry, normal color. NEURO: A&O X3. Speech clear. No ataxic movements. PSYCHIATRIC: Appropriate mood and affect. Normal interaction. Course Vital Signs Vital signs: Vital Signs Temperature 97.6 F 02/03/25 09:14 Pulse Rate 82 02/03/25 09:14 Respiratory Rate 16 02/03/25 09:14 Blood Pressure 139/90 02/03/25 09:14 Pulse Oximetry 99 02/03/25 09:14 Oxygen Delivery Room Air 02/03/25 09:14 Temperature 97.6 F 02/03/25 09:14 Pulse Rate 64 02/03/25 11:27 Respiratory Rate 15 02/03/25 11:27 Blood Pressure 109/75 02/03/25 11:27 Pulse Oximetry 99 02/03/25 11:27 Oxygen Delivery Room Air 02/03/25 09:14 MDM - Female Genitourinary MDM Narrative Medical decision making narrative: Patient presented to ED with concern for urinary tract infection, urinary complaints, bilateral flank pain. Vital signs stable upon arrival. Patient in no acute distress. Cbc with blood cell count of 13.7. CMP is unremarkable. Kidney function is stable. UA with 3+ leuk esterase, 21-50 RBC, greater than 100 WBC. Sent for culture. Will treat. Urine is negative. Patient does report she is currently trying to conceive. Has been dealing with recurrent BV. Has been on antibiotics for this. Denies concern for other STDs. CT scan of abdomen/pelvis was obtained and showing right-sided kidney stone, which patient is aware of. No ureteral stones. No hydronephrosis. No evidence of pyelonephritis. Does show cystitis changes. Consistent with clinical picture. Patient given dose of Rocephin in the ED. Will discharge on oral antibiotics. Pelvic ultrasound was otherwise unremarkable. No evidence of torsion or other ovarian etiology. Patient updated on lab and imaging results, she feels comfortable going home. Advised to continue to follow-up with PCP/OBGYN. Given strict return precautions. Discharged in stable condition. Medical Records Attestation: I reviewed the patient's medical records. Lab Data Attestation: I reviewed the patient's lab results. 02/03/25 09:26 02/03/25 09:26 Labs: Lab Results 02/03/25 02/03/25 02/03/25 Range/Units 09:23 09:26 09:27 WBC 13.7 H (4.5-10.0) K/mm3 RBC 4.10 L (4.2-5.4) M/mm3 Hgb 13.9 (12.0-15.0) g/dL Hct 41.7 (37.0-47.0) % MCV 101.7 H (80-100) fl MCH 33.9 (26-34) pg MCHC 33.3 (32-36) g/dl RDW 12.8 (11.5-14.5) % Plt Count 245 (150-375) k/mm3 MPV 11.5 H (7.4-10.4) fl Immature Gran % (Auto) 0.3 (0-0.5) % Neut % (Auto) 72.3 (45.5-73.1) % Lymph % (Auto) 17.8 L (18.3-44.2) % [place] % (Auto) 5.2 (2.6-8.5) % Eos % (Auto) 4.0 (0-4.4) % Baso % (Auto) 0.4 (0.2-1.2) % Lymph # (Auto) 2.44 (0.9-3.2) K/mm3 [place] # (Auto) 0.7 H (0.1-0.6) K/mm3 Eos # (Auto) 0.6 H (0-0.3) K/mm3 Baso # (Auto) 0.1 (0.0-0.1) K/mm3 Abs Immat Gran (auto) 0.04 H (0.00-0.031) K/mm3 Absolute Neuts (auto) 9.9 H (1.3-6.7) K/mm3 Absolute Nucleated RBC 0.000 (0.0-0.012) K/mm3 Nucleated RBC % 0.0 (0.0-0.2) % Sodium 138 (137-145) mmol/L Potassium 4.0 (3.4-5.0) mmol/L Chloride 105 (98-107) mmol/L Carbon Dioxide 24 (22-30) mmol/L Anion Gap 9 (4-12) mmol/L BUN 12 D (7-17) mg/dL Creatinine 0.66 L (0.7-1.0) mg/dL Estim Creat Clear Calc 113 ml/min Estimated GFR > 60 (59 - ) Glucose 142 H (65-110) mg/dL Calcium 9.0 (8.4-10.2) mg/dL Total Bilirubin 0.3 (0.2-1.3) mg/dL AST 31 (14-36) U/L ALT 23 (6-35) U/L Alkaline Phosphatase 72 (38-126) U/L Total Protein 6.6 (6.3-8.2) g/dL Albumin 3.9 (3.5-5.1) g/dL Urine Color Yellow (Yellow) Urine Appearance Cloudy H (Clear) Urine pH 7.0 (5.0-9.0) Ur Specific [place] 1.017 (1.001-1.035) Urine Protein Trace (Negative) mg/dL Urine Glucose (UA) Negative (Negative) mg/dL Urine Ketones Negative (Negative) mg/dL Ur Blood (Man) 1+ H (Negative) Urine Nitrate Negative (Negative) Urine Bilirubin Negative (Negative) Urine Urobilinogen 0.2 (<2.0) mg/dL Leukocyte Esterase Rfl 3+ H (Negative) GALINA/UL Urine RBC 21-50 H (0-2) /hpf Urine WBC >100 H (0-3) /hpf Ur Squamous Epith Cells None seen (Few) /hpf Urine Bacteria None seen /hpf Urine Casts 0-2 POC Urine HCG, Qual Negative (Negative) Imaging Data Attestation: I personally reviewed and interpreted this imaging study as follows: Radiologist's impression: ITS Impressions Abdomen/Pelvis CT 02/03/25 10:25 IMPRESSION: 1. There is a stable 6 mm nonobstructing calcification in the right kidney. 2. There is a 3 mm nodule of nonobstructing in the left kidney. 3. No hydronephrosis. 4. Mild concentric thickening of the choi of the bladder. Differential includes incomplete bladder wall distention versus cystitis. Pelvic/Transvag US 02/03/25 11:04 IMPRESSION: 1. Normal pelvic ultrasound. Discharge Plan Discharge Clinical Impression: Bilateral lower abdominal pain Urinary tract infection Qualifiers: Urinary tract infection type: acute cystitis Hematuria presence: with hematuria Qualified Code(s): N30.01 - Acute cystitis with hematuria Patient Disposition: Home Condition: Stable Instructions: Antibiotic Form, Urinary Tract Infection in Women (ED), Abdominal Pain (ED) Additional Instructions: Take antibiotics as prescribed for urinary tract infection. Stay well hydrated. Continue Tylenol/ibuprofen as needed for discomfort. Follow-up with your primary care doctor and/or OBGYN for further evaluation. Return to the ED if you experience worsening or severe symptoms, severe pain, unable to keep down food or drink, persistent fevers, difficulty urinating, or any other symptoms of concern. Patient Language: French Prescriptions: New cephalexin 500 mg capsule 500 mg PO Q6H 7 Days Qty: 28 0RF No Action sulfamethoxazole-trimethoprim [Bactrim DS] 800-160 mg tablet 1 tablet PO Q12H Qty: 14 0RF benzonatate 200 mg capsule 200 mg PO TID PRN (Reason: cough) Qty: 30 0RF azithromycin 250 mg tablet See Rx Instructions .ROUTE .COMPLEX Qty: 6 0RF Rx Instructions: For 250 mg dose pack: take 500 mg today (day 1), then 250 mg for 4 days (days 2-5) promethazine 12.5 mg tablet 12.5 mg PO TID Qty: 14 0RF acyclovir 400 mg tablet 400 mg PO DAILY metoclopramide HCl [Reglan] 10 mg Tablet 10 mg PO DAILY aripiprazole 10 mg tablet 10 mg PO DAILY cholecalciferol (vitamin D3) 1,250 mcg (50,000 unit) capsule 50,000 unit PO WEEKLY PNV no.95-ferrous fumarate-FA [] 28 mg iron- 800 mcg Tablet 1 tablet PO DAILY hydrocodone-acetaminophen 5-325 mg tablet 1 tablet PO Q6H PRN (Reason: pain) Qty: 28 0RF ibuprofen 600 mg tablet 600 mg PO Q6H PRN (Reason: pain) Qty: 30 0RF dicyclomine 20 mg tablet 20 mg PO TID PRN (Reason: abdominal pain) Qty: 30 0RF Follow-up/Referrals: Jermaine,ILANA Delaney [Primary Care Provider] - Time of Disposition: 11:29
[2025-02-03] MEDS: cefTRIAXone 1 GM in SODIUM CHLORIDE 0.9% IV 50 ML 100 ML IVPB (10:55)
[2025-02-03 10:56] VITALS: BP 117/80; PULSE 69; RESP 16; O2SAT 97
[2025-02-03 11:27] VITALS: BP 109/75; PULSE 64; RESP 15; O2SAT 99
== END 2025-02-03 11:36 | disposition home or self-care (01) ==
PROVIDERS: Emergency Provider Physician Assistant; PCP Physician Assistant Medical
DX: N30.01 Acute cystitis with hematuria (principal); R10.32 Left lower quadrant pain; R10.31 Right lower quadrant pain; F31.9 Bipolar disorder, unspecified; F17.210 Nicotine dependence, cigarettes, uncomplicated; N20.0 Calculus of kidney; Z79.899 Other long term (current) drug therapy
CPT/HCPCS: 36415; 74176; 76830; 76856; 80053; 81001; 81025; 85025; 87086; 96365; 99284; J0696

== ENCOUNTER 2025-02-19 18:25 | Emergency (ER) | payer BC, SELFPAY ==
--- OUTSIDE RECORDS SUMMARY | 2022-08-12 15:25 | XMS_ITS | Continuity of Care Document ---
Author Organization [facility] Address [address] [place] [id number] Phone Care Team Providers Care Calibrator Barometers Name Role Phone Dorene FAMILY PRESERVATION WORKER, Mary Anne Unavailable Unavailable Dorene FAMILY PRESERVATION WORKER, Mary Anne Unavailable Unavailable Allergies, Adverse Reactions, Alerts Substance Reaction Status Criticality ONDANSETRON HCL Active No Informati on Medications Medication Instructions Dosage Effective Dates (start - stop) Status Comments Vitamin D2 1,250 mcg (50,000 unit) capsule take 1 capsule by oral route every week [address]367 UNITS - Active acyclovir 400 mg tablet take 1 tablet by oral route every day - Active Procedures Procedure Date OFFICE/OUTPATIENT VISIT, EST OFFICE/OUTPATIENT VISIT, EST URINE TEST OFFICE/OUTPATIENT VISIT, EST Advance Directives Directive Yes / No Effective Date File Name No Information Encounters Encounter Description Practice Location Reason(s) For Visit Diagnoses Date Provider Providers Copied on Encounter [facility], [address] [place] [address], [id number], tel:[phone] No Information [address] Dorene [address] [place], [place], [place]. tel:[phone] Referring Provider: Mary Anne Catherine, [address] [place]. tel:[phone] sulting Provider: Mary Anne Catherine, [address] [place]. tel:[phone] OFFICE/OUTPA TIENT VISIT, EST [facility], [address] [place] [address], [id number], tel:[phone] *[facility] Swelling (chief complaint) Toothache (chief complaint) MEDICATION SAFE TO TAKE WHILE (chief complaint) , unspecified gestational agePeriodontal disease 3 Dorene [place]. [address] [place], . tel:[phone] [facility], [address] [place] [address], [address] [place] [address] tel:[phone] *[facility] Vitamin D deficiency 3 [address] Mary Anne. [address] [place] [phone] OFFICE/OUTPA TIENT VISIT, [facility], [address] [place] [address], [address] [place] [address] tel:[phone] *[facility] Hair loss (chief complaint) Anxiety (chief complaint) Body mass index [BMI] 27.0-27.9, adultHair lossEngages in vapingAnxietyHistor y of herpes genitalisVaginal dischargeOn correction drug therapy [address] Dorene [place]. [address] [place] [phone] OFFICE/OUTPA TIENT VISIT, [facility], [address] [place] [address], [facility], tel:[phone] *[facility] Urgent Care LUMP UNDER LEFT BREAST (chief complaint) Unspecified lump in unspecified breastMass of left breast, unspecified quadrant 2 Dorene [address]. [address], [place], [place]. tel:[phone] Family History Family Member Type Diagnosis Age At Onset No Information Payers Payer name Insurance type Covered constitution party ID Authoriza tion(s) No Information Social History Type Description Quantity Date Captured Comments Sex Female Smoking Status No Information Gender Identity Female Chief Complaint And Reason For Visit No Information Reason For Referral Reason For Referral No Information Plan Of Treatment Date Type Action Status Goal Dietary management education , guidance, and counseling completed History Of Present Illness Encounter Date Complaint History Of Prese nt Illness Swelling The swelling occ urred 2 weeks ago. AROUND JAWLINE, ONLY SWELLS WHE PT EATS OR DRINKS, PT STATES IT IS PAINFUL. Toothache The symptoms beg an 2 weeks ago. The symptoms occur randomly. The location is BILATERAL. MEDICATION SAFE TO T YONAS WHILE Anxiety This is an initi al visit. The patient presents with anxious/fearful thoughts, decreased need for sleep, difficulty concentrating, excessive worry, paranoia, poor judgment, racing thoughts and restlessness. The Anxiety is associated with irritability, sweating and trembling. The patient denies any chronic pain, headache, nausea, urinary frequency, vomiting and weight gain. Hair loss The patient pres ents with Hair loss. The problem is moderate and unchanged. The hair loss occurred suddenly. Symptoms are associated with increased stress and recent illness. Symptoms are not associated with chemical relaxers, dieting, hair pulling, new medication within 3 - 6 months, nutritional deficiencies, recent surgery or scalp rash. Associated symptoms include anxiety. Pertinent negatives include brittle hair, cold intolerance, depression, dry scalp, erythema, fever, heat intolerance, irregular menses, itchy scalp, lymphadenopathy, painful lesion(s), pigment change, rash, scaling, scalp kerion, scalp tenderness, skin sores, weight gain and weight loss. LUMP UNDER LEFT BREAST PATIENT S TATES SHE HAS A LUMP UNDER LEFT BREAST AND IS ALSO LACTATING. PATIENT DENIES BEING AND STATES HER YOUNGEST CHILD IS 4 YEARS OLD BUT IS SEXUALLY ACTIVE. HER LAST MENSTRUAL CYCLE WAS ABOUT 3 WEEKS AGO. SHE ALSO REPORTS TO BE ON AN ANTIBIOTIC D/T RECENT DENTAL INFECTION. Functional Status Date Functional Assessmen t No Information Instructions Date Instruction Additional Infor mation Chronic tooth breaka ge. Manage symptoms at present time due to reported . Oral hygiene importance discussed. Related to Periodontal disease States has tried sev eral meds in the past. Will order Genesight today and f/u with results to determine regimen. Related to Anxiety Labs as ordered. Javed vickers notify with results. Related to Vaginal discharge Encouraged patient t o reduce calorie intake and increase daily activity. Educated patient that reducing body weight can assist in control of other chronic diseases. Related to Body mass index [BMI] 27.0-27.9, adult Dietary management e ducation, guidance, and counseling Related to Body mass index [BMI] 27.0-27.9, adult See below. Related to Mass of left breast, unspecified quadrant Will order US of lef t breast. Urine HCG also inconclusive - appears to be faintly positive. Will do serum HCG level as well. Related to Unspecified lump in unspecified breast Assessments Type Assessment Date No Information Patient Care Teams Name Effective Dates (start - stop) Status Members No Information
[2025-02-19 18:54] VITALS: BP 123/61; PULSE 77; RESP 14; TEMP 36.7; O2SAT 100
--- NOTE | 2025-02-19 19:34 | PC.NURSE ---
193-PATIENT STATES SHE WANTS TO LEAVE. PATIENT STATES SHE WILL RETURN TOMORROW MORNING. ADVISED PATIENT TO REMAIN BUT DECLINED. ADVISED PATIENT TO RETURN AT ANY TIME ESPECIALLY IF CHANGE IN SYMPTOMS/CONDITION.
--- OUTSIDE RECORDS SUMMARY | 2025-02-19 19:53 | XMS_ITS | Encounter Summary ---
Author Organization [facility] Address [address] [place] [address] Phone Care Team Providers Care Engineering Lecturer Name Role Phone Monisha Clinton MD Primary Care Provider Reason for Visit * Reason Comments Medication Refill Encounter Details Date Type Department Care Team (Late st Contact Info) Description 04/22/2021 Refill [facility] - Neurology [facility] [address] [place] [phone] Carlos Hernández MD [address] [place] [id number] Medication Refill Social History Tobacco Use Types [...] on filedocumented in this encounter Care Teams Engineering Lecturer Relationship Specialty Start Date End Date Monisha Clinton MD [address] [place] [address] PCP - General Internal Medicine 06/03/19 documented as of this encounter
--- OUTSIDE RECORDS SUMMARY | 2025-02-19 19:53 | XMS_ITS | Clinical Summary ---
Author Organization [facility] Address [address] [place] [address] Phone Care Team Providers Care Security Threat Analyst Name Role Phone Victor Manuel Garcia MD [...] 5 x daily. Some cramping is reported. RADIATOR CLEANER referral today. Bipolar affective 10/07/2017 Assessment & [...] & Plan (10/20/2017 10:17 PM CDT): 10/17/17 [facility] ER visit. UA 26-50 WBC, RBC [...] on file Legal Sex Female 11:14 PM MOVIE EXTRA Gender Identity Not on file Sexual Orientation [...] Comments Blood Pressure 138/71 07/30/2022 4:32 PM MOVIE EXTRA Pulse 85 07/30/2022 4:32 PM MOVIE EXTRA Temperature 36.8 C (98.3 F) 07/30/2022 4:32 PM MOVIE EXTRA Respiratory Rate 16 07/30/2022 4:32 PM MOVIE EXTRA Oxygen Saturation 100% 07/30/2022 4:32 PM MOVIE EXTRA Inhaled Oxygen Concentration - - Weight 71.7 kg (158 lb) 07/30/2022 4:32 PM MOVIE EXTRA Height 162.6 cm (5' 4) 07/30/2022 4:32 PM MOVIE EXTRA Body Mass Index 27.12 07/30/2022 4:32 PM MOVIE EXTRA Plan of Treatment Health Maintenance Due Date [...] SMEAR WITH HPV (09/08/2017) Pap smear Normal [facility] Provider MD HEALTH MAINTENANCE Final Result from Last 3 Months or Most Recently Relevant to Health Maintenance Insurance [place] [employer] [place] [employer] [employer] [place] [employer] Member Subscriber Plan / Payer (Ef fective 2021-Present) Name:Kellie Garrido Relation to Subscriber:Self Name:Kellie Garrido Payer ID:[id number] Group ID:Not on file Type:MEDICAID [place] Address: [address] HEALTH PLAN Care Teams Security Threat Analyst Relationship Specialty Start Date End Date Victor Manuel Garcia MD [address] [facility] [address] [place] [address] PCP - General 10/15/17
--- OUTSIDE RECORDS SUMMARY | 2025-02-19 19:53 | XMS_ITS | Clinical Summary ---
Author Organization [facility] Address [address] [place] [address] Care Team Providers Care Die Try Out Worker Stamping Name Role Phone Monisha Clinton MD Primary [...] to complete this topic Insurance MEDICAID [facility]ENA [facility] Care Teams Die Try Out Worker Stamping Relationship Specialty Start Date End Date Monisha Clinton MD [address] [place] [address] PCP - General Internal Medicine 06/03/19
--- OUTSIDE RECORDS SUMMARY | 2025-02-19 19:53 | XMS_ITS | Encounter Summary ---
Author Organization [facility] Address [address] [place] [address] Phone Care Team Providers Care Living Specialist Name Role Phone Monisha Clinton MD Primary Care Provider Reason for Visit * Reason Comments Medication Refill Encounter Details Date Type Department Care Team (Late st Contact Info) Description 06/04/2021 Refill [facility] - Neurology [facility] [address] [place] [phone] Carlos Hernández MD [address] [place] [phone] Medication Refill Social History Tobacco Use Types [...] on filedocumented in this encounter Care Teams Living Specialist Relationship Specialty Start Date End Date Monisha Clinton MD [address] [place] [address] PCP - General Internal Medicine 06/03/19 documented as of this encounter
== END 2025-02-19 19:59 | disposition left against medical advice (07) ==
LOC: ANHED 19:51
PROVIDERS: PCP Physician Assistant Medical
DX: O20.9 Hemorrhage in early pregnancy, unspecified (principal)
CPT/HCPCS: 99199

== ENCOUNTER 2025-02-20 05:14 | Emergency (ER) | payer BC, SELFPAY ==
[2025-02-20 05:21] VITALS: BP 124/75; PULSE 73; RESP 16; TEMP 37; O2SAT 100
--- NOTE | 2025-02-20 05:31 | ED.GENADULT ---
HPI - General Adult General Chief complaint: Vaginal Bleeding Stated complaint: vaginal bleeding about 4 weeks Time Seen by Provider: 02/20/25 05:24 History of Present Illness HPI narrative: Patient is a 29-year-old female who presents emergency department with chief complaint of vaginal spotting patient reports that she had her last menstrual period on the and reports that she had a negative test on the but subsequently has developed positive test the patient states that she started having some pink vaginal spotting today and decided to come to the emergency department as she is Rh negative. The patient reports she has some mild cramping in the abdomen the patient reports she has not had to use a sanitary napkin Related Data Home Medications ?Medication ?Instructions ?Recorded ?Confirmed ?Last Taken ?Type acyclovir 400 mg tablet 400 mg PO DAILY 02/18/23 02/18/23 02/17/23 12:00 History aripiprazole 10 mg tablet 10 mg PO DAILY 02/18/23 02/18/23 02/17/23 12:00 History cholecalciferol (vitamin D3) 1,250 50,000 unit PO WEEKLY 02/18/23 02/18/23 02/17/23 12:00 History mcg (50,000 unit) capsule metoclopramide HCl 10 mg tablet 10 mg PO DAILY 02/18/23 02/18/23 02/17/23 12:00 History (Reglan) vit no.95-ferrous 1 tablet PO DAILY 02/18/23 02/18/23 02/17/23 12:00 History fumarate 28 mg-folic acid 800 mcg tablet () Allergies Allergy/AdvReac Type Severity Reaction Status Date / Time ondansetron Allergy Mild Rash Verified 02/20/25 05:29 Review of Systems Review of Systems: A 10 system review of systems was completed on the patient and is negative except for what is stated in the HPI. Nursing and ancillary documentation was reviewed. [facility] Past Medical History Medical History Bipolar 1 disorder (normal spontaneous vaginal delivery) x 2 at term History of bipolar disorder Surgical History Surgical History History of D&C for SAB Social History Social History Smoking status: Current every day smoker Tobacco type: cigarettes Second hand tobacco smoke exposure: Yes Alcohol intake: never Substance use: current Substance use type: marijuana Lack of Transportation: No Lack of Food: Never True Current Housing: I Have Housing Concerned About Future Housing: No Difficulty Paying Gas/Electric Bills: No Difficulty Paying for Meds: No Currently Unemployed: No Education: Don't Know Difficulty w/ Childcare or Family Care: No Spiritual care concerns: No Exam Narrative: GENERAL: Well-appearing, well-nourished, and in no acute distress. HEAD: Normocephalic, atraumatic. EYES: PERRLA and EOMI. ENT: Nares clear, no rhinorrhea or epistaxis. Mucous membranes moist. NECK: Supple. CHEST: Clear to auscultation. No respiratory distress. HEART: Regular rate and rhythm. No murmur heard. Normal peripheral pulses. ABDOMEN: Soft, nontender, nondistended, normal active bowel sounds. EXTREMITIES: Normal range of motion. No edema. SKIN: Warm, dry, no rash. NEURO: No focal deficits. Alert and oriented x3. PSYCH: Normal mood and affect. Course Vital Signs Vital signs: Vital Signs Temperature 37.0 C 02/20/25 05:21 Pulse Rate 73 02/20/25 05:21 Respiratory Rate 16 02/20/25 05:21 Blood Pressure 124/75 02/20/25 05:21 Pulse Oximetry 100 02/20/25 05:21 Oxygen Delivery Room Air 02/20/25 05:21 Temperature 37.0 C 02/20/25 05:21 Pulse Rate 73 02/20/25 05:21 Respiratory Rate 16 02/20/25 05:21 Blood Pressure 124/75 02/20/25 05:21 Pulse Oximetry 100 02/20/25 05:21 Oxygen Delivery Room Air 02/20/25 05:21 Medical Decision Making Vital Signs Vital Signs: Vital Signs Temperature 37.0 C 02/20/25 05:21 Pulse Rate 73 02/20/25 05:21 Respiratory Rate 16 02/20/25 05:21 Blood Pressure 124/75 02/20/25 05:21 Pulse Oximetry 100 02/20/25 05:21 Oxygen Delivery Room Air 02/20/25 05:21 Temperature 37.0 C 02/20/25 05:21 Pulse Rate 73 02/20/25 05:21 Respiratory Rate 16 02/20/25 05:21 Blood Pressure 124/75 02/20/25 05:21 Pulse Oximetry 100 02/20/25 05:21 Oxygen Delivery Room Air 02/20/25 05:21 Lab Data 02/20/25 05:41 02/20/25 05:41 Labs: Lab Results 02/20/25 02/20/25 Range/Units 05:41 05:44 WBC 8.8 (4.5-10.0) K/mm3 RBC 4.06 L (4.2-5.4) M/mm3 Hgb 13.8 (12.0-15.0) g/dL Hct 42.1 (37.0-47.0) % MCV 103.7 H (80-100) fl MCH 34.0 (26-34) pg MCHC 32.8 (32-36) g/dl RDW 13.3 (11.5-14.5) % Plt Count 297 (150-375) k/mm3 MPV 11.6 H (7.4-10.4) fl Immature Gran % (Auto) 0.2 (0-0.5) % Neut % (Auto) 50.2 (45.5-73.1) % Lymph % (Auto) 31.1 (18.3-44.2) % [place] % (Auto) 12.0 H (2.6-8.5) % Eos % (Auto) 5.7 H (0-4.4) % Baso % (Auto) 0.8 (0.2-1.2) % Lymph # (Auto) 2.75 (0.9-3.2) K/mm3 [place] # (Auto) 1.1 H (0.1-0.6) K/mm3 Eos # (Auto) 0.5 H (0-0.3) K/mm3 Baso # (Auto) 0.1 (0.0-0.1) K/mm3 Abs Immat Gran (auto) 0.02 (0.00-0.031) K/mm3 Absolute Neuts (auto) 4.4 (1.3-6.7) K/mm3 Absolute Nucleated RBC 0.000 (0.0-0.012) K/mm3 Nucleated RBC % 0.0 (0.0-0.2) % PT 12.4 (11.1-14.7) Seconds INR 0.9 APTT 29.6 (22.3-36.8) Seconds Sodium Pending Potassium Pending Chloride Pending Carbon Dioxide Pending Anion Gap Pending BUN Pending Creatinine Pending Estim Creat Clear Calc Pending Estimated GFR Pending Glucose Pending Calcium Pending Total Bilirubin Pending AST Pending ALT Pending Alkaline Phosphatase Pending Total Protein Pending Albumin Pending Beta HCG, Quant 4.28 mIU/ML POC Urine HCG, Qual Negative (Negative) Blood Type O Negative Antibody Screen Pending Screen Pending Baby's Blood Type Pending Baby's [place] Pending Doses of RhIg Required Pending Discharge Plan Discharge Clinical Impression: Vaginal bleeding Patient Disposition: Home Condition: Stable Instructions: Antibiotic Form, Abnormal (Dysfunctional) Uterine Bleeding (ED) Additional Instructions: Your serum test is 4.28. A level below 4.83 is negative if you continue to have an irregular period and is recommended that he be tested for . Please follow-up with your OBGYN Patient Language: Greenlandic Prescriptions: No Action sulfamethoxazole-trimethoprim [Bactrim DS] 800-160 mg tablet 1 tablet PO Q12H Qty: 14 0RF benzonatate 200 mg capsule 200 mg PO TID PRN (Reason: cough) Qty: 30 0RF azithromycin 250 mg tablet See Rx Instructions .ROUTE .COMPLEX Qty: 6 0RF Rx Instructions: For 250 mg dose pack: take 500 mg today (day 1), then 250 mg for 4 days (days 2-5) promethazine 12.5 mg tablet 12.5 mg PO TID Qty: 14 0RF cephalexin 500 mg capsule 500 mg PO Q6H 7 Days Qty: 28 0RF acyclovir 400 mg tablet 400 mg PO DAILY metoclopramide HCl [Reglan] 10 mg Tablet 10 mg PO DAILY aripiprazole 10 mg tablet 10 mg PO DAILY cholecalciferol (vitamin D3) 1,250 mcg (50,000 unit) capsule 50,000 unit PO WEEKLY PNV no.95-ferrous fumarate-FA [] 28 mg iron- 800 mcg Tablet 1 tablet PO DAILY hydrocodone-acetaminophen 5-325 mg tablet 1 tablet PO Q6H PRN (Reason: pain) Qty: 28 0RF ibuprofen 600 mg tablet 600 mg PO Q6H PRN (Reason: pain) Qty: 30 0RF dicyclomine 20 mg tablet 20 mg PO TID PRN (Reason: abdominal pain) Qty: 30 0RF Follow-up/Referrals: Jermaine,ILANA Delaney [Primary Care Provider, Unknown]
[2025-02-20 05:49] LABS: BEDSIDEPREGUCG Negative (Negative)
[2025-02-20 05:51] LABS: Hematocrit 42.1 % (37.0-47.0); Hemoglobin 13.8 g/dL (12.0-15.0); Immature Granulocyte Percent A 0.2 % (0-0.5); Lymphocytes Absolute Auto 2.75 K/mm3 (0.9-3.2); Mean Corpuscular HGB Conc 32.8 g/dl (32-36); Mean Corpuscular Hemoglobin 34.0 pg (26-34); Mean Corpuscular Volume 103.7 fl (80-100); Nucleated Red Blood Cells Absolute Auto 0.000 K/mm3 (0.0-0.012); Nucleated Red Blood Cells Perc 0.0 % (0.0-0.2); Platelet Count Result 297 k/mm3 (150-375); Red Blood Count 4.06 M/mm3 (4.2-5.4); White Blood Count 8.8 K/mm3 (4.5-10.0)
[2025-02-20 06:14] LABS: INR 0.9; Prothrombin Time 12.4 Seconds (11.1-14.7)
[2025-02-20 06:15] LABS: Partial Thromboplastin Time 29.6 Seconds (22.3-36.8)
[2025-02-20 06:27] LABS: Beta HCG Quantitative 4.28 mIU/ML
[2025-02-20 06:38] LABS: Alanine Aminotransferase 19 U/L (6-35); Albumin Level 4.1 g/dL (3.5-5.1); Alkaline Phosphatase 62 U/L (38-126); Anion Gap 7 mmol/L (4-12); Aspartate Amino Transferase 23 U/L (14-36); Bilirubin,Total 0.3 mg/dL (0.2-1.3); Blood Urea Nitrogen 13 mg/dL (7-17); Calcium 9.3 mg/dL (8.4-10.2); Carbon Dioxide 27 mmol/L (22-30); Chloride 106 mmol/L (98-107); Estimated CRCL calculation 102 ml/min; Estimated Glomerular Filt Rate > 60; Glucose 102 mg/dL (65-110); Potassium 3.8 mmol/L (3.4-5.0); Sodium 140 mmol/L (137-145); Total Protein 7.0 g/dL (6.3-8.2)
== END 2025-02-20 07:07 | disposition home or self-care (01) ==
PROVIDERS: Emergency Provider Emergency Medicine; PCP Physician Assistant Medical
DX: N93.9 Abnormal uterine and vaginal bleeding, unspecified (principal); F17.210 Nicotine dependence, cigarettes, uncomplicated; F31.9 Bipolar disorder, unspecified
CPT/HCPCS: 36415; 80053; 81025; 84702; 85025; 85461; 85610; 85730; 86850; 86900; 86901; 99284

== ENCOUNTER 2025-04-23 12:34 | Emergency (ER) | payer BC, SELFPAY ==
--- NOTE | ~2025-04-23 | CT_ITS ---
Kellie Penny Garrido EXAMINATION: CT abdomen pelvis w con COMPARISON: None HISTORY: Lower abdominal pain TECHNIQUE: Axial images were obtained through the abdomen, pelvis post administration of IV contrast. Oral contrast was also administered. Coronal reconstruction images were obtained from the axial views. CT scan performed using dose optimization techniques including the following automated exposure control; adjustment of mA and/or kV; use of iterative reconstruction technique. Automatic exposure control was used to reduce radiation dose. Permanent radiation dose record is archived to PACS. FINDINGS: CT abdomen: LUNG BASES: The lung bases are clear. The visualized portions of the heart and pericardium are unremarkable. LIVER: Unremarkable, liver contours intact, no lesions. SPLEEN: Unremarkable. KIDNEYS: Right Kidney: Right kidney midpole renal calculus 3 x 4 mm, no hydronephrosis. Left Kidney: Unremarkable. No calculi. No hydronephrosis ADRENAL GLANDS: Unremarkable. PANCREAS: Unremarkable. GALLBLADDER/BILIARY: Gallbladder is contracted. STOMACH AND ESOPHAGUS: Visualized stomach and esophagus within normal limits. BOWEL/MESENTERY: Moderate fecal content, no colitis or diverticulitis. Appendix normal. Mesentery normal. No thickening or dilated loops of small bowel. ADENOPATHY/RETROPERITONEUM: No lymphadenopathy. AORTA/VASCULATURE: Normal caliber aorta. FREE FLUID OR FREE AIR: None. CT pelvis: SOLID ORGANS/REPRODUCTIVE: The uterus appears enlarged nonspecific bilateral adnexal varices, no adnexal mass identified. BLADDER: Within normal limits. OSSEOUS STRUCTURES: No acute osseous abnormality.No suspicious lesions. OVERLYING SOFT TISSUES: Unremarkable. IMPRESSION: 1. No etiology identified to explain the patient's symptoms. Follow-up suggested if symptoms persist. Reviewed, dictated and finalized at location P. TEAM MEMBER IMPRESSION: 1. No etiology identified to explain the patient's symptoms. Follow-up suggeste d if symptoms persist.
[2025-04-23 12:39] VITALS: BP 125/83; PULSE 86; RESP 18; TEMP 36.3; O2SAT 98
[2025-04-23 14:12] VITALS: BP 113/59; PULSE 63; RESP 14; O2SAT 100
--- NOTE | 2025-04-23 14:20 | ED.ABDPAIN ---
HPI - Abdominal Pain General Chief Complaint: Urogenital-Female Stated Complaint: worsening kidney stone pain Time Seen by Provider: 04/23/25 14:02 Source: patient Mode of arrival: ambulatory Limitations: no limitations History of Present Illness HPI narrative: 29 years old white female presents with suprapubic pain for over 7 days, and right flank pain for a while. History of kidney stone. She denies any fever or chills or nausea or vomiting or diarrhea or constipation or vaginal bleeding or discharge. Related Data Home Medications ?Medication ?Instructions ?Recorded ?Confirmed ?Last Taken ?Type acyclovir 400 mg tablet 400 mg PO DAILY 02/18/23 02/18/23 02/17/23 12:00 History aripiprazole 10 mg tablet 10 mg PO DAILY 02/18/23 02/18/23 02/17/23 12:00 History cholecalciferol (vitamin D3) 1,250 50,000 unit PO WEEKLY 02/18/23 02/18/23 02/17/23 12:00 History mcg (50,000 unit) capsule metoclopramide HCl 10 mg tablet 10 mg PO DAILY 02/18/23 02/18/23 02/17/23 12:00 History (Reglan) vit no.95-ferrous 1 tablet PO DAILY 02/18/23 02/18/23 02/17/23 12:00 History fumarate 28 mg-folic acid 800 mcg tablet () Allergies Allergy/AdvReac Type Severity Reaction Status Date / Time ondansetron Allergy Mild Rash Verified 04/23/25 12:38 Review of Systems Review of Systems: All systems reviewed & are unremarkable except as noted in HPI and below PMFSH Past Medical History Medical History Bipolar 1 disorder (normal spontaneous vaginal delivery) x 2 at term History of bipolar disorder Surgical History Surgical History History of D&C for SAB Social History Social History Smoking status: Current every day smoker Tobacco type: cigarettes Second hand tobacco smoke exposure: Yes Alcohol intake: never Substance use: current Substance use type: marijuana Lack of Transportation: No Lack of Food: Never True Current Housing: I Have Housing Concerned About Future Housing: No Difficulty Paying Gas/Electric Bills: No Difficulty Paying for Meds: No Currently Unemployed: No Education: Don't Know Difficulty w/ Childcare or Family Care: No Spiritual care concerns: No Exam Narrative: General appearance: Well-developed, well-nourished Skin: Normal color Head: Normocephalic, nontraumatic Eyes: Clear conjunctiva ENT: Oropharynx normal, ears normal, nose normal Neck: Supple, nontender Chest and respiratory: Airway patent, no respiratory distress, no accessory muscle use Heart: Regular rate/rhythm Abdomen: Soft, slight suprapubic tenderness, no organomegaly, quiet bowel sounds Vascular: Normal peripheral pulses, normal capillary refill. Musculoskeletal: Normal range of motion, nontender back Neurologic: Alert and oriented ?3, [employer] is normal as tested, no gross motor deficit Course Vital Signs Vital signs: Vital Signs Temperature 36.3 C L 04/23/25 12:39 Pulse Rate 86 04/23/25 12:39 Respiratory Rate 18 04/23/25 12:39 Blood Pressure 125/83 04/23/25 12:39 Pulse Oximetry 98 04/23/25 12:39 Temperature 36.3 C L 04/23/25 12:39 Pulse Rate 63 04/23/25 14:12 Respiratory Rate 14 04/23/25 14:12 Blood Pressure 113/59 L 04/23/25 14:12 Pulse Oximetry 100 04/23/25 14:12 MDM - Abdominal Pain MDM Narrative Medical decision making narrative: Patient presents with suprapubic tenderness and right flank pain Vital signs are stable Physical examination showing slight suprapubic tenderness otherwise within normal limit Differential diagnosis include anxiety like symptoms, urinary tract infection, appendicitis, colitis, constipation, kidney stone Blood workup today includes CBC, CMP, lipase showed NO SIGNIFICANT ABNORMALITY CT abdomen and pelvis with IV contrast showed NO SIGNIFICANT ABNORMALITIES Urinalysis showed NO EVIDENCE OF INFECTION DIAGNOSIS ABDOMINAL PAIN OF UNKNOWN ETIOLOGY THE PT WAS DISCHARGED TO HOME.THE PT,S CONDITION UPON DISCHARGE WAS FAIR,EDUCATION WAS PROVIDED TO THE PT IN REFERENCE TO THE FINAL IMPRESSION,DISCHARGE STUDY RESULTS,TREATMENT,PROGNOSIS AND NEED FOR FOLLOW UP . Differential Diagnosis Differential diagnosis: Likely other ( ABOVE) Medical Records Attestation: I reviewed the patient's medical records. Lab Data Attestation: I reviewed the patient's lab results. 04/23/25 15:03 04/23/25 15:03 Labs: Lab Results 04/23/25 04/23/25 04/23/25 Range/Units 14:19 14:28 15:03 WBC 9.2 (4.5-10.0) K/mm3 RBC 3.82 L (4.2-5.4) M/mm3 Hgb 12.9 (12.0-15.0) g/dL Hct 38.2 (37.0-47.0) % MCV 100.0 (80-100) fl MCH 33.8 (26-34) pg MCHC 33.8 (32-36) g/dl RDW 13.0 (11.5-14.5) % Plt Count 237 (150-375) k/mm3 MPV 11.7 H (7.4-10.4) fl Immature Gran % (Auto) 0.2 (0-0.5) % Neut % (Auto) 57.3 (45.5-73.1) % Lymph % (Auto) 29.2 (18.3-44.2) % [place] % (Auto) 7.7 (2.6-8.5) % Eos % (Auto) 4.8 H (0-4.4) % Baso % (Auto) 0.8 (0.2-1.2) % Lymph # (Auto) 2.69 (0.9-3.2) K/mm3 [place] # (Auto) 0.7 H (0.1-0.6) K/mm3 Eos # (Auto) 0.4 H (0-0.3) K/mm3 Baso # (Auto) 0.1 (0.0-0.1) K/mm3 Abs Immat Gran (auto) 0.02 (0.00-0.031) K/mm3 Absolute Neuts (auto) 5.3 (1.3-6.7) K/mm3 Absolute Nucleated RBC 0.000 (0.0-0.012) K/mm3 Nucleated RBC % 0.0 (0.0-0.2) % Sodium 139 (137-145) mmol/L Potassium 3.7 (3.4-5.0) mmol/L Chloride 105 (98-107) mmol/L Carbon Dioxide 32 H (22-30) mmol/L Anion Gap 2 L (4-12) mmol/L BUN 13 (7-17) mg/dL Creatinine 0.74 (0.7-1.0) mg/dL Estim Creat Clear Calc 101 ml/min Estimated GFR > 60 (59 - ) Glucose 104 (65-110) mg/dL Calcium 9.0 (8.4-10.2) mg/dL Total Bilirubin 0.3 (0.2-1.3) mg/dL AST 35 (14-36) U/L ALT 27 (6-35) U/L Alkaline Phosphatase 51 (38-126) U/L Total Protein 6.2 L (6.3-8.2) g/dL Albumin 3.7 (3.5-5.1) g/dL Lipase 101 (23-300) U/L Urine Color Dark yellow (Yellow) Urine Appearance Cloudy H (Clear) Urine pH 7.5 (5.0-9.0) Ur Specific [place] 1.027 (1.001-1.035) Urine Protein Trace (Negative) mg/dL Urine Glucose (UA) Negative (Negative) mg/dL Urine Ketones Trace H (Negative) mg/dL Ur Blood (Man) Negative (Negative) Urine Nitrate Negative (Negative) Urine Bilirubin Negative (Negative) Urine Urobilinogen 1.0 (<2.0) mg/dL Leukocyte Esterase Rfl Trace H (Negative) [place]/UL Urine RBC 3-5 H (0-2) /hpf Urine WBC 0-5 (0-3) /hpf Ur Squamous Epith Cells None seen (Few) /hpf Urine Bacteria None seen /hpf Urine Casts 0-2 POC Urine HCG, Qual Negative (Negative) Imaging Data Radiologist's impression: ITS Impressions Abdomen/Pelvis CT 04/23/25 16:01 IMPRESSION: 1. No etiology identified to explain the patient's symptoms. Follow-up suggested if symptoms persist. Critical Care Time Critical Care Time Critical Care Time: No Discharge Plan Discharge Clinical Impression: Abdominal pain Patient Disposition: Home Condition: Stable Instructions: Abdominal Pain (ED) Additional Instructions: RETURN IF SYMPTOMS ARE WORSENING , CALL YOUR FAMILY PHYSICIAN FOR APPOINTMENT, TAKE TYLENOL, IBUPROFEN NEEDED FOR ACHES AND PAIN, CONTINUE HOME MEDICATIONS. Patient Language: Chinese Prescriptions: No Action sulfamethoxazole-trimethoprim [Bactrim DS] 800-160 mg tablet 1 tablet PO Q12H Qty: 14 0RF benzonatate 200 mg capsule 200 mg PO TID PRN (Reason: cough) Qty: 30 0RF azithromycin 250 mg tablet See Rx Instructions .ROUTE .COMPLEX Qty: 6 0RF Rx Instructions: For 250 mg dose pack: take 500 mg today (day 1), then 250 mg for 4 days (days 2-5) promethazine 12.5 mg tablet 12.5 mg PO TID Qty: 14 0RF cephalexin 500 mg capsule 500 mg PO Q6H 7 Days Qty: 28 0RF acyclovir 400 mg tablet 400 mg PO DAILY metoclopramide HCl [Reglan] 10 mg Tablet 10 mg PO DAILY aripiprazole 10 mg tablet 10 mg PO DAILY cholecalciferol (vitamin D3) 1,250 mcg (50,000 unit) capsule 50,000 unit PO WEEKLY PNV no.95-ferrous fumarate-FA [] 28 mg iron- 800 mcg Tablet 1 tablet PO DAILY hydrocodone-acetaminophen 5-325 mg tablet 1 tablet PO Q6H PRN (Reason: pain) Qty: 28 0RF ibuprofen 600 mg tablet 600 mg PO Q6H PRN (Reason: pain) Qty: 30 0RF dicyclomine 20 mg tablet 20 mg PO TID PRN (Reason: abdominal pain) Qty: 30 0RF Follow-up/Referrals: Jermaine,ILANA Delaney [Primary Care Provider, Unknown]
[2025-04-23 14:24] LABS: BEDSIDEPREGUCG Negative (Negative)
[2025-04-23 14:41] LABS: Add Urine Microscopic? YES; Appearance Urine Cloudy (Clear); Glucose Urine UA Negative (Negative); Leukocyte Esterase Ur Trace LEU/UL (Negative); Nitrate Urine Negative (Negative); Non Pathogenic Casts 0-2; Specific Grav Ur 1.027 (1.001-1.035)
[2025-04-23] MEDS: SODIUM CHLORIDE 0.9% IV 1,000 ML 999 ML IV CONT (15:06)
[2025-04-23 15:14] LABS: Hematocrit 38.2 % (37.0-47.0); Hemoglobin 12.9 g/dL (12.0-15.0); Immature Granulocyte Percent A 0.2 % (0-0.5); Lymphocytes Absolute Auto 2.69 K/mm3 (0.9-3.2); Mean Corpuscular HGB Conc 33.8 g/dl (32-36); Mean Corpuscular Hemoglobin 33.8 pg (26-34); Mean Corpuscular Volume 100.0 fl (80-100); Nucleated Red Blood Cells Absolute Auto 0.000 K/mm3 (0.0-0.012); Nucleated Red Blood Cells Perc 0.0 % (0.0-0.2); Platelet Count Result 237 k/mm3 (150-375); Red Blood Count 3.82 M/mm3 (4.2-5.4); White Blood Count 9.2 K/mm3 (4.5-10.0)
[2025-04-23 15:31] LABS: Alanine Aminotransferase 27 U/L (6-35); Albumin Level 3.7 g/dL (3.5-5.1); Alkaline Phosphatase 51 U/L (38-126); Anion Gap 2 mmol/L (4-12); Aspartate Amino Transferase 35 U/L (14-36); Bilirubin,Total 0.3 mg/dL (0.2-1.3); Blood Urea Nitrogen 13 mg/dL (7-17); Calcium 9.0 mg/dL (8.4-10.2); Carbon Dioxide 32 mmol/L (22-30); Chloride 105 mmol/L (98-107); Estimated CRCL calculation 101 ml/min; Estimated Glomerular Filt Rate > 60; Glucose 104 mg/dL (65-110); Lipase 101 U/L (23-300); Potassium 3.7 mmol/L (3.4-5.0); Sodium 139 mmol/L (137-145); Total Protein 6.2 g/dL (6.3-8.2)
== END 2025-04-23 17:08 | disposition home or self-care (01) ==
PROVIDERS: Emergency Provider Emergency Medicine; PCP Physician Assistant Medical
DX: R10.24 Suprapubic pain (principal); R10.A1 Flank pain, right side; F17.210 Nicotine dependence, cigarettes, uncomplicated; Z87.442 Personal history of urinary calculi; Z79.899 Other long term (current) drug therapy
CPT/HCPCS: 36415; 74177; 80053; 81001; 81025; 83690; 85025; 96360; 99284; J7030; Q9967